=== PATIENT | male | born 1955 | race Caucasian/White ===

== ENCOUNTER 2020-11-15 19:07 | Inpatient (IN) | payer MEDICARE, BC ==
[2020-11-15] MEDS ORDERED: Albuterol/Ipratropium 3.0-0.5 MG/3 ML Neb Soln NEB ONE (20:51)
--- NOTE | 2020-11-15 21:51 | EDM.PDOC ---
ED HPI GENERAL MEDICAL PROBLEM - General Chief Complaint: General Stated Complaint: CHILLS, FEVER, CONGESTION Time Seen by Provider: 11/15/20 20:22 Source of Information: Reports: Patient, Family ( at bedside) History Limitations: Reports: No Limitations - History of Present Illness INITIAL COMMENTS - FREE TEXT/NARRATIVE: Presents emergency room today secondary to feeling bad since Tuesday. He reports positive shortness of breath positive fevers and chills positive sore throat and headache he has had some nausea and vomiting he had 1 emesis today last night he states that he felt lightheaded but he is not having those complaints today. Has taken Tylenol and Aleve for the fever. He reports that his temperature max today was 101. He does have inhalers that he uses Advair twice a day but he does not have any rescue inhaler at home nor does he have any home oxygen PMH--COPD/montiel's lung, HLP, DM2 (no insulin), leg edema, metastatic melanoma stage IV currently in remission Meds--lisinopril, lasix, metformin, MVI, vit D NKDA Denies tob/etoh/drug use No reported history of COVID infection nor has he received the COVID immunization Generalized Pain Score (Numeric/FACES): 5 - Related Data Allergies Allergy/AdvReac Type Severity Reaction Status Date / Time No Known Allergies Allergy Verified 06/14/15 13:40 Home Meds: Home Meds Ascorbic Acid [Vitamin C] 1 tab PO DAILY 05/04/15 [History] Aspirin [Halfprin] 81 mg PO DAILY 05/04/15 [History] Calcium Carbonate/Vitamin D3 [Calcium 600-Vit D3 800 Caplet] 1 tab PO BID 05/04/15 [History] Docusate Sodium [Colace] 100 mg PO DAILY PRN 05/04/15 [History] Fluticasone/Salmeterol [Advair Diskus 500-50] 1 puff INH BID 05/04/15 [History] Furosemide 20 mg PO DAILY 05/04/15 [History] Lisinopril 2.5 mg PO DAILY 05/04/15 [History] Loratadine [Claritin] 1 tab PO DAILY 05/04/15 [History] Mk 34-75 05/04/15 [History] [place]-3 Fatty Acids [Fish Oil] 2 tab PO BID 05/04/15 [History] Sildenafil Citrate [Viagra] 100 mg PO DAILY PRN 05/04/15 [History] Acetaminophen [Tylenol Jr. [place]] 640 mg PO Q6HR tab.dis 05/09/15 [Rx] HYDROmorphone [Dilaudid] 2 - 4 mg PO Q4H PRN #50 tablet 05/09/15 [Rx] atorvaSTATin [Lipitor] 10 mg PO DAILY 06/14/15 [History] metFORMIN [Glucophage] 500 mg PO DAILY 06/14/15 [History] Past Medical History Respiratory History: Reports: COPD Gastrointestinal History: Reports: Other (See Below) Other Gastrointestinal History: diverticulitis Endocrine/Metabolic History: Reports: Diabetes, Type II Immunologic History: Reports: Immunosuppression Other Immunologic History: chemo Oncologic (Cancer) History: Reports: Malignant Melanoma Dermatologic History: Reports: Melanoma - Infectious Disease History Infectious Disease History: Reports: Chicken Pox - Past Surgical History HEENT Surgical History: Reports: Tonsillectomy, Other (See Below) Other HEENT Surgeries/Procedures: left salivary gland removal, deflux injection GI Surgical History: Reports: Cholecystectomy, Hernia Repair/Other, Other (See Below) Other GI Surgeries/Procedures: colon resection Musculoskeletal Surgical History: Reports: Knee Replacement Oncologic Surgical History: Reports: Other (See Below) Other Oncologic Surgeries/Procedures: lymph nodes in neck and throat and from base of skull Social & Family History - Family History Cardiac: Reports: Arrhythmia Respiratory: Reports: Asthma Neurological: Reports: Alzheimers Disease Endocrine/Metabolic: Reports: Diabetes, type II Other Oncologic Family History: Unsure of what kind, father and older sister both had cancer. - Tobacco Use Tobacco Use Status *Q: Never Tobacco User - Caffeine Use Caffeine Use: Reports: Coffee, Soda, Tea - Recreational Drug Use Recreational Drug Use: No ED ROS GENERAL - Review of Systems Review Of Systems: Comprehensive ROS is negative, except as noted in HPI. Constitutional: Reports: Fever, Chills, Fatigue, Decreased Appetite HEENT: Reports: Throat Pain Respiratory: Reports: Shortness of Breath, Cough Cardiovascular: Reports: No Symptoms GI/Abdominal: Reports: Nausea, Vomiting : Reports: No Symptoms Musculoskeletal: Reports: No Symptoms Skin: Reports: No Symptoms Neurological: Reports: Dizziness, Headache ED EXAM, GENERAL - Physical Exam Exam: See Below Exam Limited By: No Limitations General Appearance: Alert, WD/WN, Mild Distress, Other (appears older than stated age) Eye Exam: Bilateral Eye: EOMI, Normal Inspection, PERRL Ears: Normal External Exam, Hearing Grossly Normal Nose: Normal Inspection Throat/Mouth: Normal Inspection, Normal Lips, Normal Oropharynx, Normal Voice, No Airway Compromise Head: Atraumatic, Normocephalic Neck: Normal Inspection, Supple, Non-Tender, Full Range of Motion Respiratory/Chest: Respiratory Distress (mild dyspnia, conversation not interrupted due to SOB), Rhonchi (throughout ), Other (noted upon initial vitals on triage was 86% RA, placed on oxygen by COLLE[employer] OFFICER with increase to 91-95% during my exam on continuous pulse ox) Cardiovascular: Normal Peripheral Pulses, Regular Rate, Rhythm, No Edema, No Murmur Peripheral Pulses: 2+: Radial (L), Radial (R) GI/Abdominal: Normal Bowel Sounds, Soft, Non-Tender, No Distention (Male) Exam: Deferred Rectal (Males) Exam: Deferred Back Exam: Normal Inspection, Full Range of Motion Extremities: Normal Inspection, Normal Range of Motion, No Pedal Edema, Normal Capillary Refill Neurological: Alert, Oriented, Normal Cognition, No Motor/Sensory Deficits Psychiatric: Normal Affect, Normal Mood Skin Exam: Warm, Dry, Intact, Normal Color Course - Vital Signs Text/Narrative:: 2144--labs reviewed; noted for mild hyponatremia, hyperglycemia, thrombocytopenia, mild increase in neutrophil%-80. chest film as well as COVID/influenza/strep pending 2149--received call from lab regarding + COVID test 2214--room to discuss with patient and spouse at bedside today's ER findings to include positive Covid test given respiratory need of oxygen and hypoxia he has a diagnosis of Covid pneumonia. And recommendations for admission. All questions were answered verbalized understanding and agreement with plan of care 2249--call was placed and received return call from Dr. Villarreal, hospitalist service case was discussed and he accepts for admission. request CRP and D- dimer be completed 2349--chest film on preliminary reading is noted for bilateral lower lobe patchy opacities, and his diagnosis of Covid positive as well as hypoxia this would be consistent with Covid pneumonia. D-dimer is just mildly elevated at the borderline at 578 cut off is 500. CRP is markedly elevated at 11.55. Patient is pending admission this time Last Recorded V/S: Last Vital Signs Temp 97 F 11/15/20 19:55 Pulse 94 11/15/20 22:24 Resp 20 11/15/20 22:24 BP 101/60 11/15/20 22:24 Pulse Ox 96 11/15/20 22:24 - Orders/Labs/Meds Orders: Active Orders 24 hr Category Date Time Status Patient Status Manage Transfer [TRANSFER] Routine ADT 11/15/20 23:30 Active RT Aerosol Therapy [RC] ASDIRECTED Care 11/15/20 20:51 Active Chest 1V Frontal [CR] Stat Exams 11/15/20 20:54 Taken CULTURE STREP A CONFIRMATION [RM] Stat Lab 11/15/20 21:05 Results STREP SCRN A RAPID W CULT CONF [RM] Stat Lab 11/15/20 21:05 Results Remdesivir 100 mg Med 11/16/20 23:00 Active Sodium Chloride 0.9% [Normal Saline] 100 ml IV Q24H dexAMETHasone [Decadron] Med 11/15/20 23:30 Active 6 mg IVPUSH Q24H Isolation [COMM] Routine Oth 11/15/20 20:52 Ordered Resuscitation Status Routine Resus Stat 11/15/20 23:33 Ordered Medication Orders Dexamethasone (Dexamethasone 4 Mg/Ml Sdv) 6 mg IVPUSH Q24H ZOFIA Remdesivir 100 mg/ Sodium (Chloride) 100 mls @ 100 mls/hr IV Q24H ZOFIA Stop: 11/19/20 23:59 Labs: Laboratory Tests 11/15/20 11/15/20 11/15/20 Range/Units 20:40 20:40 21:00 WBC 2.2 L (4.5-11.0) K/uL RBC 4.77 (4.30-5.90) M/uL Hgb 13.5 D (12.0-15.0) g/dL Hct 39.9 L (40.0-54.0) % MCV 84 (80-98) fL MCH 28 (27-31) pg MCHC 34 (32-36) % Plt Count 105 L (150-400) K/uL Neut % (Auto) 80.9 H (36-66) % Lymph % (Auto) 10.7 L (24-44) % [place] % (Auto) 8.0 H (2-6) % Eos % (Auto) 0.4 L (2-4) % Baso % (Auto) 0.0 (0-1) % D-Dimer, Quantitative 578.22 H (0.0-500.0) ng/mL Sodium 131 L (140-148) mmol/L Potassium 4.6 (3.6-5.2) mmol/L Chloride 98 L (100-108) mmol/L Carbon Dioxide 27 (21-32) mmol/L Anion Gap 10.6 (5.0-14.0) mmol/L BUN 33 H D (7-18) mg/dL Creatinine 1.2 (0.8-1.3) mg/dL Est Cr Clr Drug Dosing 54.64 mL/min Estimated GFR (MDRD) > 60 (>60) Glucose 240 H (74-106) mg/dL Calcium 8.7 (8.5-10.1) mg/dL Total Bilirubin 0.5 (0.2-1.0) mg/dL AST 27 (15-37) U/L ALT 50 (12-78) U/L Alkaline Phosphatase 50 (46-116) U/L C-Reactive Protein (0.0-0.3) mg/dL Total Protein 6.9 (6.4-8.2) g/dL Albumin 3.7 (3.4-5.0) g/dL Globulin 3.2 (2.3-3.5) g/dL Albumin/Globulin Ratio 1.2 (1.2-2.2) SARS-CoV-2 RNA ([place]) (NEGATIVE) 11/15/20 11/15/20 Range/Units 21:00 21:05 WBC (4.5-11.0) K/uL RBC (4.30-5.90) M/uL Hgb (12.0-15.0) g/dL Hct (40.0-54.0) % MCV (80-98) fL MCH (27-31) pg MCHC (32-36) % Plt Count (150-400) K/uL Neut % (Auto) (36-66) % Lymph % (Auto) (24-44) % [place] % (Auto) (2-6) % Eos % (Auto) (2-4) % Baso % (Auto) (0-1) % D-Dimer, Quantitative (0.0-500.0) ng/mL Sodium (140-148) mmol/L Potassium (3.6-5.2) mmol/L Chloride (100-108) mmol/L Carbon Dioxide (21-32) mmol/L Anion Gap (5.0-14.0) mmol/L BUN (7-18) mg/dL Creatinine (0.8-1.3) mg/dL Est Cr Clr Drug Dosing mL/min Estimated GFR (MDRD) (>60) Glucose (74-106) mg/dL Calcium (8.5-10.1) mg/dL Total Bilirubin (0.2-1.0) mg/dL AST (15-37) U/L ALT (12-78) U/L Alkaline Phosphatase (46-116) U/L C-Reactive Protein 11.55 H (0.0-0.3) mg/dL Total Protein (6.4-8.2) g/dL Albumin (3.4-5.0) g/dL Globulin (2.3-3.5) g/dL Albumin/Globulin Ratio (1.2-2.2) SARS-CoV-2 RNA ([place]) Positive H (NEGATIVE) Meds: Medications Generic Name Dose Route Start Last Admin Trade Name Freq PRN Reason Stop Dose Admin Dexamethasone 6 mg 11/15/20 23:30 Dexamethasone 4 Mg/Ml Sdv IVPUSH Q24H ZOFIA Remdesivir 100 mg/ Sodium 100 mls @ 100 mls/hr 11/16/20 23:00 Chloride IV 11/19/20 23:59 Q24H ZOFIA Discontinued Medications Generic Name Dose Route Start Last Admin Trade Name Freq PRN Reason Stop Dose Admin Albuterol/Ipratropium 3 ml 11/15/20 20:51 11/15/20 21:08 Albuterol/Ipratropium 3.0-0.5 Mg/3 Ml Neb Soln NEB 11/15/20 20:52 3 ml ONETIME ONE Administration Remdesivir 200 mg/ Sodium 250 mls @ 250 mls/hr 11/15/20 23:28 Chloride IV 11/15/20 23:29 ONETIME ONE - Radiology Interpretation Free Text/Narrative:: 3841--chest film on preliminary reading is noted for bilateral lower lobe patchy opacities, and his diagnosis of Covid positive as well as hypoxia this would be consistent with Covid pneumonia. Departure - Departure Time of Disposition: 22:52 Disposition: Admitted As Inpatient 65 Clinical Impression: Pneumonia due to COVID-19 virus, Leukopenia, Thrombocytopenia, Hyponatremia, Uncontrolled diabetes mellitus with hyperglycemia, without long-term current use of insulin, Hypoxia - Discharge Information Referrals: Slim Gilliam MD [Primary Care Provider] - Forms: ED Department Discharge Sepsis Event Note (ED) - Evaluation Sepsis Screening Result: No Definite Risk - Focused Exam Vital Signs: Vital Signs Temp Pulse Resp BP Pulse Ox 11/15/20 22:24 94 20 101/60 96 11/15/20 21:54 93 L 11/15/20 19:55 97 F 93 20 109/53 L 86 L - My Orders Last 24 Hours: My Active Orders 11/15/20 20:51 RT Aerosol Therapy [RC] ASDIRECTED 11/15/20 20:52 Isolation [COMM] Routine 11/15/20 20:54 Chest 1V Frontal [CR] Stat 11/15/20 21:05 CULTURE STREP A CONFIRMATION [RM] Stat STREP SCRN A RAPID W CULT CONF [RM] Stat - Assessment/Plan Last 24 Hours: My Active Orders 11/15/20 20:51 RT Aerosol Therapy [RC] ASDIRECTED 11/15/20 20:52 Isolation [COMM] Routine 11/15/20 20:54 Chest 1V Frontal [CR] Stat 11/15/20 21:05 CULTURE STREP A CONFIRMATION [RM] Stat STREP SCRN A RAPID W CULT CONF [RM] Stat
[2020-11-15] MEDS ORDERED: REMDESIVIR 200 MG in Sodium Chloride 0.9% 250 ML IV ONE (23:28)
--- NOTE | 2020-11-15 23:41 | PCM.HP.2 ---
H&P History of Present Illness - General Date of Service: 11/15/20 Admit Problem/Dx: Admission Diagnosis/Problem Admission Diagnosis/Problem Hypoxia Source of Information: Patient, Family, Provider History Limitations: Reports: No Limitations - History of Present Illness Initial Comments - Free Text/Narative: Mr. Mcgrath is a 65-year-old gentleman who was admitted through the emergency department with weakness, dyspnea, and hypoxia, secondary to COVID-19 infection with bilateral pneumonia. He has not felt well over the past 4 days and during that period of time has developed progressive symptoms. He presented to the emergency department this evening and was found to be Covid positive. Chest x- ray does show evidence of bilateral pulmonary infiltrate consistent with COVID- 19 infection. White blood cell count is low and he is afebrile. On initial presentation to the emergency department was noted to have an oxygen saturation of 86% on room air. He has a BMI of 38, underlying COPD and type 2 diabetes mellitus. Generalized Pain Score (Numeric/FACES): 5 - Related Data Allergies/Adverse Reactions: Allergies Allergy/AdvReac Type Severity Reaction Status Date / Time No Known Allergies Allergy Verified 06/14/15 13:40 Home Medications: Home Meds Ascorbic Acid [Vitamin C] 1 tab PO DAILY 05/04/15 [History] Aspirin [Halfprin] 81 mg PO DAILY 05/04/15 [History] Calcium Carbonate/Vitamin D3 [Calcium 600-Vit D3 800 Caplet] 1 tab PO BID 05/04/15 [History] Docusate Sodium [Colace] 100 mg PO DAILY PRN 05/04/15 [History] Fluticasone/Salmeterol [Advair Diskus 500-50] 1 puff INH BID 05/04/15 [History] Furosemide 20 mg PO DAILY 05/04/15 [History] Lisinopril 2.5 mg PO DAILY 05/04/15 [History] Loratadine [Claritin] 1 tab PO DAILY 05/04/15 [History] Mk 34-75 05/04/15 [History] [place]-3 Fatty Acids [Fish Oil] 2 tab PO BID 05/04/15 [History] Sildenafil Citrate [Viagra] 100 mg PO DAILY PRN 05/04/15 [History] Acetaminophen [Tylenol JrYuri Russellawaydilshad] 640 mg PO Q6HR tab.dis 05/09/15 [Rx] HYDROmorphone [Dilaudid] 2 - 4 mg PO Q4H PRN #50 tablet 05/09/15 [Rx] atorvaSTATin [Lipitor] 10 mg PO DAILY 06/14/15 [History] metFORMIN [Glucophage] 500 mg PO DAILY 06/14/15 [History] Past Medical History Respiratory History: Reports: COPD Gastrointestinal History: Reports: Other (See Below) Other Gastrointestinal History: diverticulitis Endocrine/Metabolic History: Reports: Diabetes, Type II Immunologic History: Reports: Immunosuppression Other Immunologic History: chemo Oncologic (Cancer) History: Reports: Malignant Melanoma Dermatologic History: Reports: Melanoma - Infectious Disease History Infectious Disease History: Reports: Chicken Pox - Past Surgical History HEENT Surgical History: Reports: Tonsillectomy, Other (See Below) Other HEENT Surgeries/Procedures: left salivary gland removal, deflux injection GI Surgical History: Reports: Cholecystectomy, Hernia Repair/Other, Other (See Below) Other GI Surgeries/Procedures: colon resection Musculoskeletal Surgical History: Reports: Knee Replacement Oncologic Surgical History: Reports: Other (See Below) Other Oncologic Surgeries/Procedures: lymph nodes in neck and throat and from base of skull Social & Family History - Family History Cardiac: Reports: Arrhythmia Respiratory: Reports: Asthma Neurological: Reports: Alzheimers Disease Endocrine/Metabolic: Reports: Diabetes, type II Other Oncologic Family History: Unsure of what kind, father and older sister both had cancer. - Tobacco Use Tobacco Use Status *Q: Never Tobacco User - Caffeine Use Caffeine Use: Reports: Coffee, Soda, Tea - Recreational Drug Use Recreational Drug Use: No H&P Review of Systems - Review of Systems: Review Of Systems: See Below General: Reports: Malaise, Weakness, Fatigue, Decreased Appetite. Denies: F ever, Chills HEENT: Reports: Headaches. Denies: Ear Pain, Eye Pain, Hearing Changes, Rhinitis, Sinus Congestion Pulmonary: Reports: Shortness of Breath, Cough. Denies: Wheezing, Pleuritic Chest Pain, Sputum, Hemoptysis Cardiovascular: Reports: Dyspnea on Exertion, Edema. Denies: Chest Pain, Palpitations, Orthopnea, PND, Lightheadedness Gastrointestinal: Reports: No Symptoms Genitourinary: Reports: No Symptoms Musculoskeletal: Reports: Back Pain, Muscle Pain Skin: Reports: No Symptoms Psychiatric: Reports: No Symptoms Neurological: Reports: No Symptoms Hematologic/Lymphatic: Reports: No Symptoms Immunologic: Reports: No Symptoms Exam - Exam Exam: See Below - Vital Signs Vital Signs: Last Vital Signs Temp 97 F 11/15/20 19:55 Pulse 94 11/15/20 22:24 Resp 20 11/15/20 22:24 BP 101/60 11/15/20 22:24 Pulse Ox 96 11/15/20 22:24 Weight: 240 lb - Exam Quality Assessment: Supplemental Oxygen, DVT Prophylaxis General: Alert, Oriented, Cooperative, Moderate Distress HEENT: Conjunctiva Clear, Hearing Intact, Mucosa Moist & [place], Normal Nasal Septum, Posterior Pharynx Clear, Pupils Equal Neck: Supple, Trachea Midline, +2 Carotid Pulse wo Bruit Lungs: Decreased Breath Sounds, Rales, Rhonchi. No: Crackles, Wheezing Cardiovascular: Regular Rate, Regular Rhythm, Normal S1, Normal S2. No: Systo lic Murmur, Diastolic Murmur GI/Abdominal Exam: Soft, Non-Tender, No Organomegaly, No Distention Back Exam: Normal Inspection, Vertebral Tenderness Extremities: Non-Tender, Pedal Edema Skin: Warm, Dry, Intact Neurological: Cranial Nerves Intact, Strength Equal Bilateral, Normal Speech, Normal Tone, Sensation Intact. No: Focal Deficit Neuro Extensive - Mental Status: Alert, Oriented x3, Normal Mood/Affect, Normal Cognition, Memory Intact - Patient Data Lab Results Last 24 hrs: Laboratory Results - last 24 hr 11/15/20 11/15/20 11/15/20 Range/Units 20:40 20:40 21:00 WBC 2.2 L (4.5-11.0) K/uL RBC 4.77 (4.30-5.90) M/uL Hgb 13.5 D (12.0-15.0) g/dL Hct 39.9 L (40.0-54.0) % MCV 84 (80-98) fL MCH 28 (27-31) pg MCHC 34 (32-36) % Plt Count 105 L (150-400) K/uL Neut % (Auto) 80.9 H (36-66) % Lymph % (Auto) 10.7 L (24-44) % [place] % (Auto) 8.0 H (2-6) % Eos % (Auto) 0.4 L (2-4) % Baso % (Auto) 0.0 (0-1) % D-Dimer, Quantitative 578.22 H (0.0-500.0) ng/mL Sodium 131 L (140-148) mmol/L Potassium 4.6 (3.6-5.2) mmol/L Chloride 98 L (100-108) mmol/L Carbon Dioxide 27 (21-32) mmol/L Anion Gap 10.6 (5.0-14.0) mmol/L BUN 33 H D (7-18) mg/dL Creatinine 1.2 (0.8-1.3) mg/dL Est Cr Clr Drug Dosing 54.64 mL/min Estimated GFR (MDRD) > 60 (>60) Glucose 240 H (74-106) mg/dL Calcium 8.7 (8.5-10.1) mg/dL Total Bilirubin 0.5 (0.2-1.0) mg/dL AST 27 (15-37) U/L ALT 50 (12-78) U/L Alkaline Phosphatase 50 (46-116) U/L C-Reactive Protein (0.0-0.3) mg/dL Total Protein 6.9 (6.4-8.2) g/dL Albumin 3.7 (3.4-5.0) g/dL Globulin 3.2 (2.3-3.5) g/dL Albumin/Globulin Ratio 1.2 (1.2-2.2) SARS-CoV-2 RNA ([place]) (NEGATIVE) 11/15/20 11/15/20 Range/Units 21:00 21:05 WBC (4.5-11.0) K/uL RBC (4.30-5.90) M/uL Hgb (12.0-15.0) g/dL Hct (40.0-54.0) % MCV (80-98) fL MCH (27-31) pg MCHC (32-36) % Plt Count (150-400) K/uL Neut % (Auto) (36-66) % Lymph % (Auto) (24-44) % [place] % (Auto) (2-6) % Eos % (Auto) (2-4) % Baso % (Auto) (0-1) % D-Dimer, Quantitative (0.0-500.0) ng/mL Sodium (140-148) mmol/L Potassium (3.6-5.2) mmol/L Chloride (100-108) mmol/L Carbon Dioxide (21-32) mmol/L Anion Gap (5.0-14.0) mmol/L BUN (7-18) mg/dL Creatinine (0.8-1.3) mg/dL Est Cr Clr Drug Dosing mL/min Estimated GFR (MDRD) (>60) Glucose (74-106) mg/dL Calcium (8.5-10.1) mg/dL Total Bilirubin (0.2-1.0) mg/dL AST (15-37) U/L ALT (12-78) U/L Alkaline Phosphatase (46-116) U/L C-Reactive Protein 11.55 H (0.0-0.3) mg/dL Total Protein (6.4-8.2) g/dL Albumin (3.4-5.0) g/dL Globulin (2.3-3.5) g/dL Albumin/Globulin Ratio (1.2-2.2) SARS-CoV-2 RNA ([place]) Positive H (NEGATIVE) Result Diagrams: 11/15/20 20:40 11/15/20 20:40 Blu Results Last 24 hrs: Microbiology 11/15/20 21:05 Group A Streptococcus Rapid Screen - Final Throat NEGATIVE STREP A SCREEN REFERENCE RANGE: NEGATIVE 11/15/20 21:05 Influenza Type A Antigen Screen - Final Nasopharyngeal Swab NEGATIVE INFLUENZA A VIRUS AG REFERENCE RANGE: NEGATIVE Influenza Type B Antigen Screen - Final NEGATIVE INFLUENZA B VIRUS AG REFERENCE RANGE: NEGATIVE Sepsis Event Note - Evaluation Sepsis Screening Result: No Definite Risk - Focused Exam Vital Signs: Vital Signs Temp Pulse Resp BP Pulse Ox 11/15/20 22:24 94 20 101/60 96 11/15/20 21:54 93 L 11/15/20 19:55 97 F 93 20 109/53 L 86 L *Q Meaningful Use (ADM) - VTE Risk Assess *Q Each Risk Factor Represents 1 Point: Swollen Legs, Current, Obesity ( BMI > 25 kg/m2), Serious lung disease including pneumonia, Abnormal Pulmonary Function (COPD) Total Score 1 Point Risk Factors: 4 Each Risk Factor Represents 2 Points: Age 60 - 74 Years Total Score 2 Point Risk Factors: 2 Each Risk Factor Represents 3 Points: None Total Score 3 Point Risk Factors: 0 Each Risk Factor Represents 5 Points: None Total Score 5 Point Risk Factors: 0 Venous Thromboembolism Risk Factor Score *Q: 6 Problem List Initiated/Reviewed/Updated: Yes Orders Last 24hrs: Active Orders 24 hr Category Date Time Status Patient Status Manage Transfer [TRANSFER] Routine ADT 11/15/20 23:30 Active RT Aerosol Therapy [RC] ASDIRECTED Care 11/15/20 20:51 Active Chest 1V Frontal [CR] Stat Exams 11/15/20 20:54 Taken CULTURE STREP A CONFIRMATION [RM] Stat Lab 11/15/20 21:05 Results STREP SCRN A RAPID W CULT CONF [RM] Stat Lab 11/15/20 21:05 Results Remdesivir 100 mg Med 11/16/20 23:00 Active Sodium Chloride 0.9% [Normal Saline] 100 ml IV Q24H dexAMETHasone [Decadron] Med 11/15/20 23:30 Active 6 mg IVPUSH Q24H Isolation [COMM] Routine Oth 11/15/20 20:52 Ordered Resuscitation Status Routine Resus Stat 11/15/20 23:33 Ordered Medication Orders Dexamethasone (Dexamethasone 4 Mg/Ml Sdv) 6 mg IVPUSH Q24H ZOFIA Remdesivir 100 mg/ Sodium (Chloride) 100 mls @ 100 mls/hr IV Q24H ZOFIA Stop: 11/19/20 23:59 Assessment/Plan Comment:: ASSESSMENT AND PLAN COVID-19 INFECTION WITH BILATERAL PNEUMONIA-onset of symptoms approximately 4 days ago, evidence of bilateral pneumonia noted on chest x-ray. Complicated by acute hypoxic respiratory failure. -Limit IV fluids -Encourage prone ventilation -Remdesivir 200 mg IV today then 100 mg IV daily for an additional 4 days, today is day 1 of 5 -Decadron 6 mg IV daily, today is day 1 -Continuous pulse oximetry -Lovenox 40 mg subcu every 12 hours ACUTE HYPOXIC RESPIRATORY FAILURE-secondary to COVID-19 infection with bilateral pneumonia and underlying COPD -Supplemental oxygen as needed -Albuterol inhaler every 4 hours as needed TYPE 2 DIABETES MELLITUS -Hold Metformin, until appetite improves -4 times daily glucometers -Low-dose sliding scale Humalog MAINTENANCE ISSUES -DVT prophylaxis; Lovenox as above -GI prophylaxis; not indicated -Saldivar catheter; not indicated -Nutrition; consistent carbohydrate diet -Nicotine dependence; not required CODE STATUS-FULL CODE ADMISSION STATUS-patient will be admitted to inpatient status, expect at least a 2 night hospital stay for evaluation and management of problems as outlined above. At the time of this admission I do not reasonably expected evaluation a nd management of this problem will require more than a 96 hour hospital stay. DISPOSITION-anticipate discharge to home after the hospital stay. PRIMARY CARE PROVIDER-Dr. Gilliam - Mortality Measure Prognosis:: Poor
[2020-11-15] MEDS: Dexamethasone 4 MG/ML SDV IVPUSH SCH (23:56)
[2020-11-16] MEDS ORDERED: Glucose Gel 15 GM in 37.5 GM Tube PO PRN (00:53)
[2020-11-16] MEDS ORDERED: Enoxaparin 40 MG/0.4 ML Syringe SUBCUT SCH (00:53)
[2020-11-16] MEDS ORDERED: Sodium Chloride 0.9% 10 ML Syringe FLUSH PRN (00:53)
[2020-11-16] MEDS ORDERED: 50% Dextrose in Water 50 ML Syringe IV PRN (00:53)
[2020-11-16] MEDS ORDERED: Polyethylene Glycol 3350 Powder 17 GM Packet PO PRN (00:53)
[2020-11-16] MEDS ORDERED: Ondansetron 4 MG/2 ML SDV IV PRN (00:53)
[2020-11-16] MEDS: Acetaminophen 325 MG Tab PO PRN ×2 (01:07→15:53)
[2020-11-16] MEDS: Formoterol/Mometasone 200-5 MCG 8.8 GM Inhaler IH SCH ×2 (08:20→20:53)
[2020-11-16] MEDS: Insulin Lispro 100 Unit/ML 3 ML KwikPen SUBCUT SCH ×4 (08:25→20:56)
[2020-11-16] MEDS ORDERED: Lisinopril 2.5 MG Tab PO SCH (09:00)
[2020-11-16] MEDS ORDERED: Furosemide 20 MG Tab PO SCH (09:00)
[2020-11-16] MEDS ORDERED: Loratadine 10 MG Tab PO SCH (09:00)
[2020-11-16] MEDS ORDERED: Aspirin 81 MG Tab.EC PO SCH (09:00)
[2020-11-16] MEDS ORDERED: atorvaSTATin 10 MG Tab PO SCH (09:00)
--- NOTE | 2020-11-16 10:53 | PCM.PN ---
- General Info Date of Service: 11/16/20 Subjective Update: Mr. Mcgrath has remained fairly stable since admission. Continues to require supplemental oxygen to maintain adequate saturations, currently at 3 L/min via nasal cannula. Continues to have a cough which is nonproductive. He does report symptoms of shortness of breath with fairly minimal activity. Functional Status: Reports: Tolerating Diet, Ambulating, Urinating - Review of Systems General: Reports: Weakness, Fatigue. Denies: Fever, Chills Pulmonary: Reports: Shortness of Breath, Cough. Denies: Pleuritic Chest Pain, Sputum, Hemoptysis, Wheezing Cardiovascular: Reports: Dyspnea on Exertion. Denies: Chest Pain, Palpitations, Orthopnea, PND, Edema, Lightheadedness Gastrointestinal: Reports: No Symptoms Genitourinary: Reports: No Symptoms - Patient Data Vitals - Most Recent: Last Vital Signs Temp 98.0 F 11/16/20 10:47 Pulse 89 11/16/20 10:47 Resp 18 11/16/20 10:47 BP 136/63 11/16/20 10:47 Pulse Ox 90 L 11/16/20 10:47 Weight - Most Recent: 248 lb 9.6 oz I&O - Last 24 Hours: Intake & Output 11/15/20 11/16/20 11/16/20 22:59 06:59 14:59 Intake Total 360 Balance 360 Lab Results Last 24 Hours: Laboratory Results - last 24 hr 11/15/20 11/15/20 11/15/20 Range/Units 20:40 20:40 21:00 WBC 2.2 L (4.5-11.0) K/uL RBC 4.77 (4.30-5.90) M/uL Hgb 13.5 D (12.0-15.0) g/dL Hct 39.9 L (40.0-54.0) % MCV 84 (80-98) fL MCH 28 (27-31) pg MCHC 34 (32-36) % Plt Count 105 L (150-400) K/uL Neut % (Auto) 80.9 H (36-66) % Lymph % (Auto) 10.7 L (24-44) % [place] % (Auto) 8.0 H (2-6) % Eos % (Auto) 0.4 L (2-4) % Baso % (Auto) 0.0 (0-1) % Add Manual Diff Neutrophils % (Manual) (36-66) % Band Neutrophils % (5-11) % Lymphocytes % (Manual) (24-44) % Monocytes % (Manual) (2-6) % Metamyelocytes % % D-Dimer, Quantitative 578.22 H (0.0-500.0) ng/mL Sodium 131 L (140-148) mmol/L Potassium 4.6 (3.6-5.2) mmol/L Chloride 98 L (100-108) mmol/L Carbon Dioxide 27 (21-32) mmol/L Anion Gap 10.6 (5.0-14.0) mmol/L BUN 33 H D (7-18) mg/dL Creatinine 1.2 (0.8-1.3) mg/dL Est Cr Clr Drug Dosing 54.64 mL/min Estimated GFR (MDRD) > 60 (>60) Glucose 240 H (74-106) mg/dL POC Glucose (74-106) mg/dL Calcium 8.7 (8.5-10.1) mg/dL Total Bilirubin 0.5 (0.2-1.0) mg/dL AST 27 (15-37) U/L ALT 50 (12-78) U/L Alkaline Phosphatase 50 (46-116) U/L C-Reactive Protein (0.0-0.3) mg/dL Total Protein 6.9 (6.4-8.2) g/dL Albumin 3.7 (3.4-5.0) g/dL Globulin 3.2 (2.3-3.5) g/dL Albumin/Globulin Ratio 1.2 (1.2-2.2) SARS-CoV-2 RNA (KAUSHIK) (NEGATIVE) 11/15/20 11/15/20 11/16/20 Range/Units 21:00 21:05 06:00 WBC 4.7 (4.5-11.0) K/uL RBC 4.70 (4.30-5.90) M/uL Hgb 13.5 (12.0-15.0) g/dL Hct 39.3 L (40.0-54.0) % MCV 84 (80-98) fL MCH 29 (27-31) pg MCHC 34 (32-36) % Plt Count 102 L (150-400) K/uL Neut % (Auto) (36-66) % Lymph % (Auto) (24-44) % [place] % (Auto) (2-6) % Eos % (Auto) (2-4) % Baso % (Auto) (0-1) % Add Manual Diff Yes Neutrophils % (Manual) 56 (36-66) % Band Neutrophils % 25 H (5-11) % Lymphocytes % (Manual) 12 L (24-44) % Monocytes % (Manual) 4 (2-6) % Metamyelocytes % 3 % D-Dimer, Quantitative (0.0-500.0) ng/mL Sodium (140-148) mmol/L Potassium (3.6-5.2) mmol/L Chloride (100-108) mmol/L Carbon Dioxide (21-32) mmol/L Anion Gap (5.0-14.0) mmol/L BUN (7-18) mg/dL Creatinine (0.8-1.3) mg/dL Est Cr Clr Drug Dosing mL/min Estimated GFR (MDRD) (>60) Glucose (74-106) mg/dL POC Glucose (74-106) mg/dL Calcium (8.5-10.1) mg/dL Total Bilirubin (0.2-1.0) mg/dL AST (15-37) U/L ALT (12-78) U/L Alkaline Phosphatase (46-116) U/L C-Reactive Protein 11.55 H (0.0-0.3) mg/dL Total Protein (6.4-8.2) g/dL Albumin (3.4-5.0) g/dL Globulin (2.3-3.5) g/dL Albumin/Globulin Ratio (1.2-2.2) SARS-CoV-2 RNA (KAUSHIK) Positive H (NEGATIVE) 11/16/20 11/16/20 11/16/20 Range/Units 06:00 06:00 07:36 WBC (4.5-11.0) K/uL RBC (4.30-5.90) M/uL Hgb (12.0-15.0) g/dL Hct (40.0-54.0) % MCV (80-98) fL MCH (27-31) pg MCHC (32-36) % Plt Count (150-400) K/uL Neut % (Auto) (36-66) % Lymph % (Auto) (24-44) % [place] % (Auto) (2-6) % Eos % (Auto) (2-4) % Baso % (Auto) (0-1) % Add Manual Diff Neutrophils % (Manual) (36-66) % Band Neutrophils % (5-11) % Lymphocytes % (Manual) (24-44) % Monocytes % (Manual) (2-6) % Metamyelocytes % % D-Dimer, Quantitative 598.83 H (0.0-500.0) ng/mL Sodium 132 L (140-148) mmol/L Potassium 4.4 (3.6-5.2) mmol/L Chloride 99 L (100-108) mmol/L Carbon Dioxide 23 (21-32) mmol/L Anion Gap 14.4 H (5.0-14.0) mmol/L BUN 28 H (7-18) mg/dL Creatinine 1.2 (0.8-1.3) mg/dL Est Cr Clr Drug Dosing 54.64 mL/min Estimated GFR (MDRD) > 60 (>60) Glucose 352 H (74-106) mg/dL POC Glucose 285 H (74-106) mg/dL Calcium 8.4 L (8.5-10.1) mg/dL Total Bilirubin 0.5 (0.2-1.0) mg/dL AST 31 (15-37) U/L ALT 51 (12-78) U/L Alkaline Phosphatase 48 (46-116) U/L C-Reactive Protein 20.26 H (0.0-0.3) mg/dL Total Protein 6.4 (6.4-8.2) g/dL Albumin 3.6 (3.4-5.0) g/dL Globulin 2.8 (2.3-3.5) g/dL Albumin/Globulin Ratio 1.3 (1.2-2.2) SARS-CoV-2 RNA (KAUSHIK) (NEGATIVE) Blu Results Last 24 Hours: Microbiology 11/15/20 21:05 Group A Streptococcus Rapid Screen - Final Throat NEGATIVE STREP A SCREEN REFERENCE RANGE: NEGATIVE 11/15/20 21:05 Influenza Type A Antigen Screen - Final Nasopharyngeal Swab NEGATIVE INFLUENZA A VIRUS AG REFERENCE RANGE: NEGATIVE Influenza Type B Antigen Screen - Final NEGATIVE INFLUENZA B VIRUS AG REFERENCE RANGE: NEGATIVE Med Orders - Current: Current Medications Acetaminophen (Acetaminophen 325 Mg Tab) 650 mg PO Q4H PRN PRN Reason: Pain (Mild 1-3)/fever Last Admin: 11/16/20 01:07 Dose: 650 mg Documented by: Albuterol (Albuterol 8 Gm Inhaler) 0 gm INH Q4H PRN PRN Reason: Dyspnea Aspirin (Aspirin 81 Mg Tab.Ec) 81 mg PO DAILY [facility] [place] Last Admin: 11/16/20 08:23 Dose: 81 mg Documented by: Atorvastatin Calcium (Atorvastatin 10 Mg Tab) 10 mg PO DAILY [facility] [place] Last Admin: 11/16/20 08:23 Dose: 10 mg Documented by: Dexamethasone (Dexamethasone 4 Mg/Ml Sdv) 6 mg IVPUSH Q24H [facility] [place] Last Admin: 11/15/20 23:56 Dose: 6 mg Documented by: Dextrose (Glucose Gel 15 Gm In 37.5 Gm Tube) 15 gm PO ONETIME PRN PRN Reason: Hypoglycemia Dextrose/Water (50% Dextrose In Water 50 Ml Syringe) 50 ml IV ONETIME PRN PRN Reason: Hypoglycemia Enoxaparin Sodium (Enoxaparin 40 Mg/0.4 Ml Syringe) 40 mg SUBCUT Q12H [facility] [place] Furosemide (Furosemide 20 Mg Tab) 20 mg PO DAILY [facility] [place] Last Admin: 11/16/20 08:24 Dose: 20 mg Documented by: Remdesivir 100 mg/ Sodium (Chloride) 100 mls @ 100 mls/hr IV Q24H [facility] [place] Stop: 11/19/20 23:59 Insulin Human Lispro (Insulin Lispro 100 Unit/Ml 3 Ml Kwikpen) 0 unit SUBCUT QIDACANDBED [facility] [place]; Protocol Last Admin: 11/16/20 08:25 Dose: 3 unit Documented by: Lisinopril (Lisinopril 2.5 Mg Tab) 2.5 mg PO DAILY [facility] [place] Last Admin: 11/16/20 08:25 Dose: 2.5 mg Documented by: Loratadine (Loratadine 10 Mg Tab) 10 mg PO DAILY [facility] [place] Last Admin: 11/16/20 08:23 Dose: 10 mg Documented by: Mometasone Furoate/Formoterol Fumar (Formoterol/Mometasone 200-5 Mcg 8.8 Gm Inhaler) 0 puff IH BIDRT [facility] [place] Last Admin: 11/16/20 08:20 Dose: 2 inhalation Documented by: Ondansetron HCl (Ondansetron 4 Mg/2 Ml Sdv) 4 mg IV Q4H PRN PRN Reason: Nausea/Vomiting Polyethylene Glycol (Polyethylene Glycol 3350 Powder 17 Gm Packet) 17 gm PO DAILY PRN PRN Reason: Constipation Sodium Chloride (Sodium Chloride 0.9% 10 Ml Syringe) 10 ml FLUSH ASDIRECTED PRN PRN Reason: Keep Vein Open Discontinued Medications Albuterol/Ipratropium (Albuterol/Ipratropium 3.0-0.5 Mg/3 Ml Neb Soln) 3 ml NEB ONETIME ONE Stop: 11/15/20 20:52 Last Admin: 11/15/20 21:08 Dose: 3 ml Documented by: Enoxaparin Sodium (Enoxaparin 40 Mg/0.4 Ml Syringe) 40 mg SUBCUT Q12H [facility] Last Admin: 11/16/20 01:07 Dose: 40 mg Documented by: Remdesivir 200 mg/ Sodium (Chloride) 250 mls @ 250 mls/hr IV ONETIME ONE Stop: 11/15/20 23:29 Last Admin: 11/15/20 23:58 Dose: 250 mls/hr Documented by: - Exam Quality Assessment: Supplemental Oxygen, DVT Prophylaxis General: Alert, Oriented, Cooperative, Mild Distress Lungs: Decreased Breath Sounds, Rales, Rhonchi. No: Crackles, Wheezing Cardiovascular: Regular Rate, Regular Rhythm, No Murmurs GI/Abdominal Exam: Soft, Non-Tender, No Organomegaly, No Distention Extremities: Non-Tender, No Pedal Edema - Patient Data Lab Results Last 24 hrs: Laboratory Results - last 24 hr 11/15/20 11/15/20 11/15/20 Range/Units 20:40 20:40 21:00 WBC 2.2 L (4.5-11.0) K/uL RBC 4.77 (4.30-5.90) M/uL Hgb 13.5 D (12.0-15.0) g/dL Hct 39.9 L (40.0-54.0) % MCV 84 (80-98) fL MCH 28 (27-31) pg MCHC 34 (32-36) % Plt Count 105 L (150-400) K/uL Neut % (Auto) 80.9 H (36-66) % Lymph % (Auto) 10.7 L (24-44) % [place] % (Auto) 8.0 H (2-6) % Eos % (Auto) 0.4 L (2-4) % Baso % (Auto) 0.0 (0-1) % Add Manual Diff Neutrophils % (Manual) (36-66) % Band Neutrophils % (5-11) % Lymphocytes % (Manual) (24-44) % Monocytes % (Manual) (2-6) % Metamyelocytes % % D-Dimer, Quantitative 578.22 H (0.0-500.0) ng/mL Sodium 131 L (140-148) mmol/L Potassium 4.6 (3.6-5.2) mmol/L Chloride 98 L (100-108) mmol/L Carbon Dioxide 27 (21-32) mmol/L Anion Gap 10.6 (5.0-14.0) mmol/L BUN 33 H D (7-18) mg/dL Creatinine 1.2 (0.8-1.3) mg/dL Est Cr Clr Drug Dosing 54.64 mL/min Estimated GFR (MDRD) > 60 (>60) Glucose 240 H (74-106) mg/dL POC Glucose (74-106) mg/dL Calcium 8.7 (8.5-10.1) mg/dL Total Bilirubin 0.5 (0.2-1.0) mg/dL AST 27 (15-37) U/L ALT 50 (12-78) U/L Alkaline Phosphatase 50 (46-116) U/L C-Reactive Protein (0.0-0.3) mg/dL Total Protein 6.9 (6.4-8.2) g/dL Albumin 3.7 (3.4-5.0) g/dL Globulin 3.2 (2.3-3.5) g/dL Albumin/Globulin Ratio 1.2 (1.2-2.2) SARS-CoV-2 RNA ([facility]) (NEGATIVE) 11/15/20 11/15/20 11/16/20 Range/Units 21:00 21:05 06:00 WBC 4.7 (4.5-11.0) K/uL RBC 4.70 (4.30-5.90) M/uL Hgb 13.5 (12.0-15.0) g/dL Hct 39.3 L (40.0-54.0) % MCV 84 (80-98) fL MCH 29 (27-31) pg MCHC 34 (32-36) % Plt Count 102 L (150-400) K/uL Neut % (Auto) (36-66) % Lymph % (Auto) (24-44) % [place] % (Auto) (2-6) % Eos % (Auto) (2-4) % Baso % (Auto) (0-1) % Add Manual Diff Yes Neutrophils % (Manual) 56 (36-66) % Band Neutrophils % 25 H (5-11) % Lymphocytes % (Manual) 12 L (24-44) % Monocytes % (Manual) 4 (2-6) % Metamyelocytes % 3 % D-Dimer, Quantitative (0.0-500.0) ng/mL Sodium (140-148) mmol/L Potassium (3.6-5.2) mmol/L Chloride (100-108) mmol/L Carbon Dioxide (21-32) mmol/L Anion Gap (5.0-14.0) mmol/L BUN (7-18) mg/dL Creatinine (0.8-1.3) mg/dL Est Cr Clr Drug Dosing mL/min Estimated GFR (MDRD) (>60) Glucose (74-106) mg/dL POC Glucose (74-106) mg/dL Calcium (8.5-10.1) mg/dL Total Bilirubin (0.2-1.0) mg/dL AST (15-37) U/L ALT (12-78) U/L Alkaline Phosphatase (46-116) U/L C-Reactive Protein 11.55 H (0.0-0.3) mg/dL Total Protein (6.4-8.2) g/dL Albumin (3.4-5.0) g/dL Globulin (2.3-3.5) g/dL Albumin/Globulin Ratio (1.2-2.2) SARS-CoV-2 RNA ([facility]) Positive H (NEGATIVE) 11/16/20 11/16/20 11/16/20 Range/Units 06:00 06:00 07:36 WBC (4.5-11.0) K/uL RBC (4.30-5.90) M/uL Hgb (12.0-15.0) g/dL Hct (40.0-54.0) % MCV (80-98) fL MCH (27-31) pg MCHC (32-36) % Plt Count (150-400) K/uL Neut % (Auto) (36-66) % Lymph % (Auto) (24-44) % [place] % (Auto) (2-6) % Eos % (Auto) (2-4) % Baso % (Auto) (0-1) % Add Manual Diff Neutrophils % (Manual) (36-66) % Band Neutrophils % (5-11) % Lymphocytes % (Manual) (24-44) % Monocytes % (Manual) (2-6) % Metamyelocytes % % D-Dimer, Quantitative 598.83 H (0.0-500.0) ng/mL Sodium 132 L (140-148) mmol/L Potassium 4.4 (3.6-5.2) mmol/L Chloride 99 L (100-108) mmol/L Carbon Dioxide 23 (21-32) mmol/L Anion Gap 14.4 H (5.0-14.0) mmol/L BUN 28 H (7-18) mg/dL Creatinine 1.2 (0.8-1.3) mg/dL Est Cr Clr Drug Dosing 54.64 mL/min Estimated GFR (MDRD) > 60 (>60) Glucose 352 H (74-106) mg/dL POC Glucose 285 H (74-106) mg/dL Calcium 8.4 L (8.5-10.1) mg/dL Total Bilirubin 0.5 (0.2-1.0) mg/dL AST 31 (15-37) U/L ALT 51 (12-78) U/L Alkaline Phosphatase 48 (46-116) U/L C-Reactive Protein 20.26 H (0.0-0.3) mg/dL Total Protein 6.4 (6.4-8.2) g/dL Albumin 3.6 (3.4-5.0) g/dL Globulin 2.8 (2.3-3.5) g/dL Albumin/Globulin Ratio 1.3 (1.2-2.2) SARS-CoV-2 RNA ([facility]) (NEGATIVE) Result Diagrams: 11/16/20 06:00 11/16/20 06:00 Blu Results Last 24 hrs: Microbiology 11/15/20 21:05 Group A Streptococcus Rapid Screen - Final Throat NEGATIVE STREP A SCREEN REFERENCE RANGE: NEGATIVE 11/15/20 21:05 Influenza Type A Antigen Screen - Final Nasopharyngeal Swab NEGATIVE INFLUENZA A VIRUS AG REFERENCE RANGE: NEGATIVE Influenza Type B Antigen Screen - Final NEGATIVE INFLUENZA B VIRUS AG REFERENCE RANGE: NEGATIVE Sepsis Event Note - Evaluation Sepsis Screening Result: Sepsis Risk - Focused Exam Vital Signs: Vital Signs Temp Temp Pulse Resp BP BP Pulse Ox 11/16/20 10:47 98.0 F 89 18 136/63 90 L 11/16/20 08:25 126/62 11/16/20 07:46 97.7 F 74 16 126/62 95 11/16/20 07:24 93 L 11/16/20 04:42 96.5 F L 70 22 H 101/48 L 90 L 11/16/20 01:08 91 L 11/16/20 01:07 99.1 F 11/16/20 00:53 11/16/20 00:48 99.1 F 95 24 H 104/73 89 L Pulse Ox 11/16/20 10:47 11/16/20 08:25 11/16/20 07:46 11/16/20 07:24 11/16/20 04:42 11/16/20 01:08 11/16/20 01:07 11/16/20 00:53 92 L 11/16/20 00:48 - Problem List Review Problem List Initiated/Reviewed/Updated: Yes - My Orders Last 24 Hours: My Active Orders 11/15/20 23:30 dexAMETHasone [Decadron] 6 mg IVPUSH Q24H 11/15/20 23:33 Resuscitation Status Routine 11/16/20 00:53 Acetaminophen [TylenoL] 650 mg PO Q4H PRN Albuterol [Ventolin HFA] See Dose Instructions INH Q4H PRN Dextrose 50% in Water 50 ml IV ONETIME PRN Dextrose [Glutose 15] 15 gm PO ONETIME PRN Ondansetron [Zofran] 4 mg IV Q4H PRN Sodium Chloride 0.9% [Saline Flush] 10 ml FLUSH ASDIRECTED PRN polyethylene glycoL 3350 [MiraLAX] 17 gm PO DAILY PRN 11/16/20 00:53 Patient Status [ADT] Routine Ambulate [RC] QID Communication Order [RC] STAT Diabetes Education [RC] Click to Edit Height and Weight [RC] 0500 Intake and Output [RC] QSHIFT Notify Provider Vital Signs [RC] ASDIRECTED Notify Provider [RC] PRN Oxygen Therapy [RC] PRN Pulse Oximetry [RC] CONTINUOUS RT Post Treatment Assessment [RC] Click to Edit Up to Chair [RC] QID VTE/DVT Education [RC] Per Unit Routine Vital Signs [RC] Q4H Saline Lock Insert [OM.PC] Routine 11/16/20 07:00 Insulin Lispro [HumaLOG] See Protocol SUBCUT QIDACANDBED 11/16/20 09:00 Aspirin [Halfprin] 81 mg PO DAILY Furosemide [Lasix] 20 mg PO DAILY Loratadine [Claritin] 10 mg PO DAILY Mometasone/Formoterol [Dulera 200-5 MCG] 0 puff IH BIDRT atorvaSTATin [Lipitor] 10 mg PO DAILY lisinopriL [Prinivil] 2.5 mg PO DAILY 11/16/20 11:00 Enoxaparin [Lovenox] 40 mg SUBCUT Q12H 11/16/20 11:30 GLUCOSE POC LAB TO COLLECT JPM [POC] QIDACANDBED 11/16/20 16:30 GLUCOSE POC LAB TO COLLECT JPM [POC] QIDACANDBED 11/16/20 Dinner Consistent Carbohydrate Diet [DIET] 11/16/20 21:00 GLUCOSE POC LAB TO COLLECT JPM [POC] QIDACANDBED 11/16/20 23:00 Remdesivir 100 mg Sodium Chloride 0.9% [Normal Saline] 100 ml IV Q24H 11/17/20 05:00 BASIC METABOLIC PANEL,BMP [CHEM] Timed 11/17/20 07:30 GLUCOSE POC LAB TO COLLECT JPM [POC] QIDACANDBED 11/17/20 11:30 GLUCOSE POC LAB TO COLLECT JPM [POC] QIDACANDBED 11/17/20 16:30 GLUCOSE POC LAB TO COLLECT JPM [POC] QIDACANDBED 11/17/20 21:00 GLUCOSE POC LAB TO COLLECT JPM [POC] QIDACANDBED 11/18/20 07:30 GLUCOSE POC LAB TO COLLECT JPM [POC] QIDACANDBED 11/18/20 11:30 GLUCOSE POC LAB TO COLLECT JPM [POC] QIDACANDBED 11/18/20 16:30 GLUCOSE POC LAB TO COLLECT JPM [POC] QIDACANDBED 11/18/20 21:00 GLUCOSE POC LAB TO COLLECT JPM [POC] QIDACANDBED 11/19/20 07:30 GLUCOSE POC LAB TO COLLECT JPM [POC] QIDACANDBED 11/19/20 11:30 GLUCOSE POC LAB TO COLLECT JPM [POC] QIDACANDBED 11/19/20 16:30 GLUCOSE POC LAB TO COLLECT JPM [POC] QIDACANDBED 11/19/20 21:00 GLUCOSE POC LAB TO COLLECT JPM [POC] QIDACANDBED 11/20/20 07:30 GLUCOSE POC LAB TO COLLECT JPM [POC] QIDACANDBED 11/20/20 11:30 GLUCOSE POC LAB TO COLLECT JPM [POC] QIDACANDBED 11/20/20 16:30 GLUCOSE POC LAB TO COLLECT JPM [POC] QIDACANDBED 11/20/20 21:00 GLUCOSE POC LAB TO COLLECT JPM [POC] QIDACANDBED 11/21/20 07:30 GLUCOSE POC LAB TO COLLECT JPM [POC] QIDACANDBED 11/21/20 11:30 GLUCOSE POC LAB TO COLLECT JPM [POC] QIDACANDBED 11/21/20 16:30 GLUCOSE POC LAB TO COLLECT JPM [POC] QIDACANDBED 11/21/20 21:00 GLUCOSE POC LAB TO COLLECT JPM [POC] QIDACANDBED 11/22/20 07:30 GLUCOSE POC LAB TO COLLECT JPM [POC] QIDACANDBED 11/22/20 11:30 GLUCOSE POC LAB TO COLLECT JPM [POC] QIDACANDBED 11/22/20 16:30 GLUCOSE POC LAB TO COLLECT JPM [POC] QIDACANDBED 11/22/20 21:00 GLUCOSE POC LAB TO COLLECT JPM [POC] QIDACANDBED 11/23/20 07:30 GLUCOSE POC LAB TO COLLECT JPM [POC] QIDACANDBED 11/23/20 11:30 GLUCOSE POC LAB TO COLLECT JPM [POC] QIDACANDBED 11/23/20 16:30 GLUCOSE POC LAB TO COLLECT JPM [POC] QIDACANDBED 11/23/20 21:00 GLUCOSE POC LAB TO COLLECT JPM [POC] QIDACANDBED 11/24/20 07:30 GLUCOSE POC LAB TO COLLECT JPM [POC] QIDACANDBED 11/24/20 11:30 GLUCOSE POC LAB TO COLLECT JPM [POC] QIDACANDBED 11/24/20 16:30 GLUCOSE POC LAB TO COLLECT JPM [POC] QIDACANDBED 11/24/20 21:00 GLUCOSE POC LAB TO COLLECT JPM [POC] QIDACANDBED 11/25/20 07:30 GLUCOSE POC LAB TO COLLECT JPM [POC] QIDACANDBED 11/25/20 11:30 GLUCOSE POC LAB TO COLLECT JPM [POC] QIDACANDBED 11/25/20 16:30 GLUCOSE POC LAB TO COLLECT JPM [POC] QIDACANDBED 11/25/20 21:00 GLUCOSE POC LAB TO COLLECT JPM [POC] QIDACANDBED - Plan Plan:: ASSESSMENT AND PLAN COVID-19 INFECTION WITH BILATERAL PNEUMONIA-stable since admission, currently requiring 3 L of oxygen via nasal cannula. He does become short of breath with fairly minimal exertion. -Limit IV fluids -Encourage prone ventilation -Remdesivir 200 mg IV today then 100 mg IV daily for an additional 4 days, today is day 2 of 5 -Decadron 6 mg IV daily, today is day 2 -Continuous pulse oximetry -Lovenox 40 mg subcu every 12 hours ACUTE HYPOXIC RESPIRATORY FAILURE-secondary to COVID-19 infection with bilateral pneumonia and underlying COPD -Supplemental oxygen as needed -Albuterol inhaler every 4 hours as needed COPD-he does not typically require oxygen at home -Continue outpatient medications TYPE 2 DIABETES MELLITUS -Hold Metformin, until appetite improves -4 times daily glucometers -Low-dose sliding scale Humalog MAINTENANCE ISSUES -DVT prophylaxis; Lovenox as above -GI prophylaxis; not indicated -Saldivar catheter; not indicated -Nutrition; consistent carbohydrate diet -Nicotine dependence; not required CODE STATUS-FULL CODE ADMISSION STATUS-patient will be admitted to inpatient status, expect at least a 2 night hospital stay for evaluation and management of problems as outlined above. At the time of this admission I do not reasonably expected evaluation and management of this problem will require more than a 96 hour hospital stay. DISPOSITION-anticipate discharge to home after the hospital stay. PRIMARY CARE PROVIDER-Dr. Gilliam
[2020-11-16] MEDS: Enoxaparin 40 MG/0.4 ML Syringe SUBCUT SCH ×2 (12:12→22:59)
[2020-11-16] MEDS ORDERED: metFORMIN 500 MG Tab PO SCH (17:00)
[2020-11-16] MEDS ORDERED: Trolamine Salicylate/Aloe Vera 10% Crm 85 GM Tube TOP PRN (19:36)
[2020-11-16] MEDS: Dexamethasone 4 MG/ML SDV IVPUSH SCH (22:59)
[2020-11-16] MEDS ORDERED: REMDESIVIR 100 MG in Sodium Chloride 0.9% 100 ML IV SCH (23:00)
[2020-11-16] MEDS: Albuterol 8 GM Inhaler INH PRN (23:39)
[2020-11-17] MEDS ORDERED: Furosemide 20 MG/2 ML VIAL IVPUSH ONE (01:04)
[2020-11-17] MEDS ORDERED: Furosemide 20 MG/2 ML VIAL ONE (01:06)
[2020-11-17] MEDS ORDERED: propofoL 100 ML ONE (01:10)
[2020-11-17] MEDS ORDERED: Heparin Sodium 5,000 Units/ML Vial ONE (01:50)
[2020-11-17] MEDS ORDERED: Diltiazem 100 MG AdvVial ONE (02:29)
[2020-11-17] MEDS ORDERED: Sodium Chloride 0.9% 100 ML ONE (02:30)
[2020-11-17] MEDS ORDERED: Norepinephrine 4 MG/4 ML SDV ONE (02:54)
[2020-11-17] MEDS ORDERED: Dextrose 5% in Water 250 ML ONE (02:54)
[2020-11-17] MEDS ORDERED: Levofloxacin/Dextrose 5%-Water 750 MG in Premix Bag 1 BAG IV SCH (03:00)
[2020-11-17] MEDS: Norepinephrine 8 MG in Dextrose 5% in Water 250 ML IV SCH ×4 (03:00→13:40)
[2020-11-17] MEDS ORDERED: Vancomycin 1 GM SDV IV SCH (03:00)
[2020-11-17] MEDS ORDERED: Piperacillin/Tazobactam 3.375 GM in Sodium Chloride 0.9% 50 ML IV SCH (03:00)
[2020-11-17] MEDS ORDERED: Vancomycin 2.5 GM in Sodium Chloride 0.9% 500 ML IV ONE (03:00)
[2020-11-17] MEDS: propofoL 100 ML IV SCH ×5 (03:07→12:26)
[2020-11-17] MEDS ORDERED: Diltiazem 25 MG/5 ML SDV IVPUSH ONE (03:07)
--- NOTE | 2020-11-17 03:19 | CRLCR ---
For Patients: As a result of the Century Cures Act, medical imaging exams and procedure reports are released immediately into your electronic medical record. You may view this report before your referring provider. If you have questions, please contact your health care provider. Indication: Intubation Technique: Chest 1 view Comparison: November 15, 2020 Findings/Impression: Endotracheal tube tip terminates 5.5 cm above the level of the hedy. Bibasilar lung opacities again identified. No pneumothorax. Likely small left pleural effusion. No acute osseous abnormality. Dictated by Shayy Wolf MD @ 11/17/2020 3:18:43 AM (Electronically Signed)
--- NOTE | 2020-11-17 03:49 | PN ---
DATE OF SERVICE: 11/17/2020 This gentleman is on 2nd floor in a negative pressure room because he has COVID. He requires an intubation so he can be placed on a ventilator. This was carried out with the assistance of Respiratory Therapy. The patient was given 200 mg of propofol and 100 mg of succinylcholine. Siria 3 laryngoscope blade was used. There was clear visualization of the cords and the 8.0 endotracheal tube was placed successfully. He was then transferred to ICU. In ICU, I placed an arterial line in his left radial artery after doing a successful Ottoniel test. This was then placed to direct monitoring. His blood pressure at that time was 85/50. NAME OF THE TWO PROCEDURES: 1. Tracheal intubation. 2. Radial artery catheterization, left. Moshe Novak CRNA /[id number]
--- NOTE | 2020-11-17 03:52 | PCM.SN.2 ---
- Free Text/Narrative Note: Mr. Mcgrath unfortunately experienced significant deterioration in his respiratory status late last night. Despite high flow defined oxygen at 95% he developed increased respiratory rate into the mid to high 40s associated with borderline oxygenation. I did discuss with him intubation and mechanical ventilation and he was agreeable to proceed. He was intubated by anesthesia service and placed on ventilator. He has been intermittently hypotensive and has been started on IV norepinephrine as well as IV propofol for sedation. With severe respiratory compromise he did go into atrial fibrillation with rapid vent ricular response. With stabilization of blood pressure he will be started on a continuous infusion of IV diltiazem. Current ventilator settings are assist control of 16 PEEP of 7.5 tidal volume of 460 and 100% FiO2. Current saturations are acceptable and his respiratory rate seems to be slowly de creasing. Remdesivir has been discontinued because of his intubation, he will be continued on IV Decadron. Actemra is not currently available in our facility. Procalcitonin was obtained and found to be markedly elevated at 107. He has been started on IV antibiotic therapy with vancomycin, Zosyn, and levofloxacin. He also has been started on IV Protonix for stress ulcer prophylaxis. On exam he had bilateral rhonchi and rales with expiratory wheezes. Heart rate is rapid and irregular. He was given 20 mg of IV furosemide just prior to intubation. Follow-up chest x-ray shows appropriate p osition of the endotracheal tube as well as bilateral infiltrates. CT scan of the chest will be obtained when he is more stable. New diagnosis; atrial fibrillation with rapid ventricular response, acute hypercapnic and hypoxic respiratory failure requiring intubation and mechanical ventilation. 120 minutes of critical care time was spent in the direct evaluation and management of this patient earlier this morning. Time Documentation
[2020-11-17] MEDS ORDERED: Succinylcholine 200 MG/10 ML MDV ONE ×2 (04:00)
[2020-11-17] MEDS ORDERED: Propofol 200 MG/20 ML SDV ONE (04:00)
[2020-11-17] MEDS: Diltiazem 100 MG in Sodium Chloride 0.9% 100 ML IV SCH ×2 (04:26→13:36)
[2020-11-17] MEDS ORDERED: Insulin Lispro 100 Unit/ML 3 ML KwikPen SUBCUT SCH ×2 (07:00→10:00)
[2020-11-17] MEDS: Formoterol/Mometasone 200-5 MCG 8.8 GM Inhaler IH SCH (07:12)
[2020-11-17] MEDS ORDERED: Heparin Sodium 5,000 UNITS in Sodium Chloride 0.9% 500 ML IV SCH (08:15)
[2020-11-17] MEDS ORDERED: Pantoprazole 40 MG Vial IVPUSH SCH (09:00)
[2020-11-17] MEDS ORDERED: Albuterol 0.083% 2.5 MG/3 ML Neb Soln NEB PRN (09:18)
[2020-11-17] MEDS ORDERED: Piperacillin/Tazobactam/Dext 3.375 GM in Premix Bag 1 BAG IV SCH (09:30)
[2020-11-17] MEDS ORDERED: Acetaminophen 650 MG Supp RECTAL PRN (09:39)
--- NOTE | 2020-11-17 09:41 | PCM.PN ---
- Patient Data Vitals - Most Recent: Last Vital Signs Temp 36.6 C 11/17/20 07:49 Pulse 117 H 11/17/20 07:49 Resp 33 H 11/17/20 07:49 BP 117/64 11/17/20 07:49 Pulse Ox 90 L 11/17/20 07:49 Weight - Most Recent: 109.4 kg I&O - Last 24 Hours: Intake & Output 11/16/20 11/17/20 11/17/20 22:59 06:59 14:59 Intake Total 1000 743 Output Total 200 625 Balance 800 118 Lab Results Last 24 Hours: Laboratory Results - last 24 hr 11/16/20 11/16/20 11/16/20 Range/Units 11:37 16:32 20:55 WBC (4.5-11.0) K/uL RBC (4.30-5.90) M/uL Hgb (12.0-15.0) g/dL Hct (40.0-54.0) % MCV (80-98) fL MCH (27-31) pg MCHC (32-36) % Plt Count (150-400) K/uL Add Manual Diff Neutrophils % (Manual) (36-66) % Band Neutrophils % (5-11) % Lymphocytes % (Manual) (24-44) % Monocytes % (Manual) (2-6) % ESR (0-20) mm/hr D-Dimer, Quantitative (0.0-500.0) ng/mL Puncture Site ABG pH (7.350-7.450) ABG pCO2 (35.0-42.0) mmHg ABG pO2 (75.0-100.0) mmHg ABG HCO3 (22.0-26.0) mmol/L ABG Total CO2 (23.0-27.0) mmol/L ABG O2 Saturation (95.0-98.0) % ABG O2 Content (15.0-23.0) %vol ABG Base Excess mm/L ABG Hemoglobin (13.5-18.0) g/dL ABG Oxyhemoglobin % ABG Carboxyhemoglobin (0.0-1.6) % ABG Methemoglobin % Ottoniel Test O2 Delivery Device Oxygen Flow Rate L Sodium (140-148) mmol/L Potassium (3.6-5.2) mmol/L Chloride (100-108) mmol/L Carbon Dioxide (21-32) mmol/L Anion Gap (5.0-14.0) mmol/L BUN (7-18) mg/dL Creatinine (0.8-1.3) mg/dL Est Cr Clr Drug Dosing mL/min Estimated GFR (MDRD) (>60) Glucose (74-106) mg/dL POC Glucose 326 H 321 H 308 H (74-106) mg/dL Calcium (8.5-10.1) mg/dL Total Bilirubin (0.2-1.0) mg/dL AST (15-37) U/L ALT (12-78) U/L Alkaline Phosphatase (46-116) U/L Troponin I (0.000-0.056) ng/mL C-Reactive Protein (0.0-0.3) mg/dL Total Protein (6.4-8.2) g/dL Albumin (3.4-5.0) g/dL Globulin (2.3-3.5) g/dL Albumin/Globulin Ratio (1.2-2.2) Procalcitonin ng/mL 11/17/20 11/17/20 11/17/20 Range/Units 02:21 02:37 02:37 WBC 2.9 L (4.5-11.0) K/uL RBC 4.85 (4.30-5.90) M/uL Hgb 14.0 (12.0-15.0) g/dL Hct 40.1 (40.0-54.0) % MCV 83 (80-98) fL MCH 29 (27-31) pg MCHC 35 (32-36) % Plt Count 100 L (150-400) K/uL Add Manual Diff Yes Neutrophils % (Manual) 41 (36-66) % Band Neutrophils % 32 H (5-11) % Lymphocytes % (Manual) 20 L (24-44) % Monocytes % (Manual) 7 H (2-6) % ESR 49 H (0-20) mm/hr D-Dimer, Quantitative (0.0-500.0) ng/mL Puncture Site A-line ABG pH 7.275 L (7.350-7.450) ABG pCO2 45.7 H (35.0-42.0) mmHg ABG pO2 72.4 L (75.0-100.0) mmHg ABG HCO3 20.6 L (22.0-26.0) mmol/L ABG Total CO2 18.6 L (23.0-27.0) mmol/L ABG O2 Saturation 92.4 L (95.0-98.0) % ABG O2 Content 18.4 (15.0-23.0) %vol ABG Base Excess -5.9 mm/L ABG Hemoglobin 14.6 (13.5-18.0) g/dL ABG Oxyhemoglobin 89.8 % ABG Carboxyhemoglobin 1.5 (0.0-1.6) % ABG Methemoglobin 1.3 % Ottoniel Test A-line O2 Delivery Device Nasal cannula Oxygen Flow Rate L Sodium 129 L (140-148) mmol/L Potassium 4.4 (3.6-5.2) mmol/L Chloride 96 L (100-108) mmol/L Carbon Dioxide 20 L (21-32) mmol/L Anion Gap 17.4 H (5.0-14.0) mmol/L BUN 33 H (7-18) mg/dL Creatinine 1.3 (0.8-1.3) mg/dL Est Cr Clr Drug Dosing 50.44 mL/min Estimated GFR (MDRD) 55 L (>60) Glucose 299 H (74-106) mg/dL POC Glucose (74-106) mg/dL Calcium 8.6 (8.5-10.1) mg/dL Total Bilirubin 0.8 D (0.2-1.0) mg/dL AST 41 H (15-37) U/L ALT 42 (12-78) U/L Alkaline Phosphatase 43 L (46-116) U/L Troponin I < 0.017 (0.000-0.056) ng/mL C-Reactive Protein (0.0-0.3) mg/dL Total Protein 6.6 (6.4-8.2) g/dL Albumin 3.1 L (3.4-5.0) g/dL Globulin 3.5 (2.3-3.5) g/dL Albumin/Globulin Ratio 0.9 L (1.2-2.2) Procalcitonin ng/mL 11/17/20 11/17/20 11/17/20 Range/Units 02:53 08:00 08:00 WBC (4.5-11.0) K/uL RBC (4.30-5.90) M/uL Hgb (12.0-15.0) g/dL Hct (40.0-54.0) % MCV (80-98) fL MCH (27-31) pg MCHC (32-36) % Plt Count (150-400) K/uL Add Manual Diff Neutrophils % (Manual) (36-66) % Band Neutrophils % (5-11) % Lymphocytes % (Manual) (24-44) % Monocytes % (Manual) (2-6) % ESR (0-20) mm/hr D-Dimer, Quantitative 909.22 H (0.0-500.0) ng/mL Puncture Site ABG pH (7.350-7.450) ABG pCO2 (35.0-42.0) mmHg ABG pO2 (75.0-100.0) mmHg ABG HCO3 (22.0-26.0) mmol/L ABG Total CO2 (23.0-27.0) mmol/L ABG O2 Saturation (95.0-98.0) % ABG O2 Content (15.0-23.0) %vol ABG Base Excess mm/L ABG Hemoglobin (13.5-18.0) g/dL ABG Oxyhemoglobin % ABG Carboxyhemoglobin (0.0-1.6) % ABG Methemoglobin % Ottoniel Test O2 Delivery Device Oxygen Flow Rate L Sodium 129 L (140-148) mmol/L Potassium 3.7 (3.6-5.2) mmol/L Chloride 97 L (100-108) mmol/L Carbon Dioxide 21 (21-32) mmol/L Anion Gap 14.7 H (5.0-14.0) mmol/L BUN 33 H (7-18) mg/dL Creatinine 1.2 (0.8-1.3) mg/dL Est Cr Clr Drug Dosing 54.64 mL/min Estimated GFR (MDRD) > 60 (>60) Glucose 294 H (74-106) mg/dL POC Glucose (74-106) mg/dL Calcium 8.3 L (8.5-10.1) mg/dL Total Bilirubin (0.2-1.0) mg/dL AST (15-37) U/L ALT (12-78) U/L Alkaline Phosphatase (46-116) U/L Troponin I (0.000-0.056) ng/mL C-Reactive Protein (0.0-0.3) mg/dL Total Protein (6.4-8.2) g/dL Albumin (3.4-5.0) g/dL Globulin (2.3-3.5) g/dL Albumin/Globulin Ratio (1.2-2.2) Procalcitonin 107.80 H* ng/mL 11/17/20 11/17/20 Range/Units 08:00 08:00 WBC (4.5-11.0) K/uL RBC (4.30-5.90) M/uL Hgb (12.0-15.0) g/dL Hct (40.0-54.0) % MCV (80-98) fL MCH (27-31) pg MCHC (32-36) % Plt Count (150-400) K/uL Add Manual Diff Neutrophils % (Manual) (36-66) % Band Neutrophils % (5-11) % Lymphocytes % (Manual) (24-44) % Monocytes % (Manual) (2-6) % ESR (0-20) mm/hr D-Dimer, Quantitative (0.0-500.0) ng/mL Puncture Site A-line ABG pH 7.385 (7.350-7.450) ABG pCO2 32.1 L (35.0-42.0) mmHg ABG pO2 64.5 L (75.0-100.0) mmHg ABG HCO3 18.8 L (22.0-26.0) mmol/L ABG Total CO2 16.6 L (23.0-27.0) mmol/L ABG O2 Saturation 92.7 L (95.0-98.0) % ABG O2 Content 17.7 (15.0-23.0) %vol ABG Base Excess -4.8 mm/L ABG Hemoglobin 14.0 (13.5-18.0) g/dL ABG Oxyhemoglobin 90.0 % ABG Carboxyhemoglobin 1.7 H (0.0-1.6) % ABG Methemoglobin 1.2 % Ottoniel Test A-line O2 Delivery Device Nasal cannula Oxygen Flow Rate L Sodium (140-148) mmol/L Potassium (3.6-5.2) mmol/L Chloride (100-108) mmol/L Carbon Dioxide (21-32) mmol/L Anion Gap (5.0-14.0) mmol/L BUN (7-18) mg/dL Creatinine (0.8-1.3) mg/dL Est Cr Clr Drug Dosing mL/min Estimated GFR (MDRD) (>60) Glucose (74-106) mg/dL POC Glucose (74-106) mg/dL Calcium (8.5-10.1) mg/dL Total Bilirubin (0.2-1.0) mg/dL AST (15-37) U/L ALT (12-78) U/L Alkaline Phosphatase (46-116) U/L Troponin I (0.000-0.056) ng/mL C-Reactive Protein 31.99 H (0.0-0.3) mg/dL Total Protein (6.4-8.2) g/dL Albumin (3.4-5.0) g/dL Globulin (2.3-3.5) g/dL Albumin/Globulin Ratio (1.2-2.2) Procalcitonin ng/mL Blu Results Last 24 Hours: Microbiology 11/15/20 21:05 Quick Strep Confirmation Culture - Final Throat NO GROUP A STREP ISOLATED REFERENCE RANGE: NEGATIVE Group A Streptococcus Rapid Screen - Final NEGATIVE STREP A SCREEN REFERENCE RANGE: NEGATIVE Med Orders - Current: Current Medications Acetaminophen (Acetaminophen 650 Mg Supp) 650 mg RECTAL Q4H PRN PRN Reason: Fever Albuterol (Albuterol 8 Gm Inhaler) 0 gm INH Q4H PRN PRN Reason: Dyspnea Last Admin: 11/16/20 23:39 Dose: 2 puff Documented by: Dexamethasone (Dexamethasone 4 Mg/Ml Sdv) 6 mg IVPUSH Q24H [facility] Last Admin: 11/16/20 22:59 Dose: 6 mg Documented by: Dextrose (Glucose Gel 15 Gm In 37.5 Gm Tube) 15 gm PO ONETIME PRN PRN Reason: Hypoglycemia Dextrose/Water (50% Dextrose In Water 50 Ml Syringe) 50 ml IV ONETIME PRN PRN Reason: Hypoglycemia Enoxaparin Sodium (Enoxaparin 40 Mg/0.4 Ml Syringe) 40 mg SUBCUT Q12H [facility]OF[facility] Last Admin: 11/16/20 22:59 Dose: 40 mg Documented by: Heparin Sodium (Porcine) (Heparin Sodium 100 Units/Ml 5 Ml Syringe) 500 units FLUSH ASDIRECTED PRN PRN Reason: IV Use Propofol (Diprivan 100 Ml) 100 mls @ 13.532 mls/hr IV TITRATE [facility]; Protocol Last Admin: 11/17/20 07:29 Dose: 60 mcg/kg/min, 40.595 mls/hr Documented by: Diltiazem HCl 100 mg/ Sodium (Chloride) 100 mls @ 5 mls/hr IV TITRATE [facility]; Protocol Last Titration: 11/17/20 08:02 Dose: 15 mg/hr, 15 mls/hr Documented by: Norepinephrine Bitartrate 8 mg (/ Dextrose/Water) 258 mls @ 3.87 mls/hr IV TITRATE [facility]OFIA; Protocol Last Infusion: 11/17/20 04:25 Dose: 8 mcg/min, 15.48 mls/hr Documented by: Vancomycin HCl 1.75 gm/ Sodium (Chloride) 250 mls @ 166.667 mls/hr IV Q12H [facility] Piperacillin/Tazobactam/ (Dextrose 3.375 gm/ Premix) 50 mls @ 100 mls/hr IV Q6H [facility] Levofloxacin/Dextrose 750 mg/ (Premix) 150 mls @ 100 mls/hr IV Q24H [facility] Heparin Sodium (Porcine) 5,000 (units/ Sodium Chloride) 501 mls @ 0 mls/hr IV ASDIRECTED [facility] Insulin Human Lispro (Insulin Lispro 100 Unit/Ml 3 Ml Kwikpen) 0 unit SUBCUT Q6H [facility]; Protocol Mometasone Furoate/Formoterol Fumar (Formoterol/Mometasone 200-5 Mcg 8.8 Gm Inhaler) 0 puff IH BIDRT [facility] Last Admin: 11/17/20 07:12 Dose: Not Given Documented by: Ondansetron HCl (Ondansetron 4 Mg/2 Ml Sdv) 4 mg IV Q4H PRN PRN Reason: Nausea/Vomiting Pantoprazole Sodium (Pantoprazole 40 Mg Vial) 40 mg IVPUSH DAILY [facility] Sodium Chloride (Sodium Chloride 0.9% 10 Ml Syringe) 10 ml FLUSH ASDIRECTED PRN PRN Reason: Keep Vein Open Trolamine Salicylate (Trolamine Salicylate/Aloe Vera 10% Crm 85 Gm Tube) 0 gm TOP Q1H PRN PRN Reason: Pain Last Admin: 11/16/20 20:54 Dose: 1 applic Documented by: Discontinued Medications Acetaminophen (Acetaminophen 325 Mg Tab) 650 mg PO Q4H PRN PRN Reason: Pain (Mild 1-3)/fever Last Admin: 11/16/20 15:53 Dose: 650 mg Documented by: Albuterol (Albuterol 0.083% 2.5 Mg/3 Ml Neb Soln) 2.5 mg NEB Q2H PRN PRN Reason: Wheezing Albuterol/Ipratropium (Albuterol/Ipratropium 3.0-0.5 Mg/3 Ml Neb Soln) 3 ml NEB ONETIME ONE Stop: 11/15/20 20:52 Last Admin: 11/15/20 21:08 Dose: 3 ml Documented by: Aspirin (Aspirin 81 Mg Tab.Ec) 81 mg PO DAILY [facility] Last Admin: 11/16/20 08:23 Dose: 81 mg Documented by: Atorvastatin Calcium (Atorvastatin 10 Mg Tab) 10 mg PO DAILY [facility] Last Admin: 11/16/20 08:23 Dose: 10 mg Documented by: Diltiazem HCl (Diltiazem 100 Mg Advvial) Confirm Administered Dose 100 mg .ROUTE .STK-MED ONE Stop: 11/17/20 02:30 Last Admin: 11/17/20 03:10 Dose: Not Given Documented by: Diltiazem HCl (Diltiazem 25 Mg/5 Ml Sdv) 10 mg IVPUSH ONETIME ONE Stop: 11/17/20 03:08 Last Admin: 11/17/20 04:27 Dose: 10 mg Documented by: Enoxaparin Sodium (Enoxaparin 40 Mg/0.4 Ml Syringe) 40 mg SUBCUT Q12H [facility] Last Admin: 11/16/20 01:07 Dose: 40 mg Documented by: Furosemide (Furosemide 20 Mg Tab) 20 mg PO DAILY [facility] Last Admin: 11/16/20 08:24 Dose: 20 mg Documented by: Furosemide (Furosemide 20 Mg/2 Ml Vial) 20 mg IVPUSH NOW ONE Stop: 11/17/20 01:05 Last Admin: 11/17/20 01:09 Dose: 20 mg Documented by: Furosemide (Furosemide 20 Mg/2 Ml Vial) Confirm Administered Dose 20 mg .ROUTE .STK-MED ONE Stop: 11/17/20 01:07 Last Admin: 11/17/20 01:16 Dose: Not Given Documented by: Heparin Sodium (Porcine) (Heparin Sodium 5,000 Units/Ml Vial) Confirm Administered Dose 5,000 units .ROUTE .STK-MED ONE Stop: 11/17/20 01:51 Last Admin: 11/17/20 03:08 Dose: 5,000 units Documented by: Remdesivir 200 mg/ Sodium (Chloride) 250 mls @ 250 mls/hr IV ONETIME ONE Stop: 11/15/20 23:29 Last Admin: 11/15/20 23:58 Dose: 250 mls/hr Documented by: Remdesivir 100 mg/ Sodium (Chloride) 100 mls @ 100 mls/hr IV Q24H [facility] Stop: 11/19/20 23:59 Last Admin: 11/16/20 22:59 Dose: 100 mls/hr Documented by: Propofol (Diprivan 100 Ml) Confirm Administered Dose 100 mls @ as directed .ROUTE .STK-MED ONE Stop: 11/17/20 01:11 Last Admin: 11/17/20 01:23 Dose: Not Given Documented by: Sodium Chloride (Normal Saline) Confirm Administered Dose 100 mls @ as directed .ROUTE .STK-MED ONE Stop: 11/17/20 02:31 Last Admin: 11/17/20 03:09 Dose: Not Given Documented by: Piperacillin Sod/Tazobactam (Sod 3.375 gm/ Sodium Chloride) 50 mls @ 100 mls/hr IV Q6H [facility] Last Admin: 11/17/20 03:30 Dose: 100 mls/hr Documented by: Levofloxacin/Dextrose 750 mg/ (Premix) 150 mls @ 100 mls/hr IV Q24H [facility] Last Admin: 11/17/20 03:59 Dose: 100 mls/hr Documented by: Dextrose/Water (Dextrose 5% In Water) Confirm Administered Dose 250 mls @ as directed .ROUTE .STK-MED ONE Stop: 11/17/20 02:55 Last Admin: 11/17/20 03:09 Dose: Not Given Documented by: Vancomycin HCl 2.5 gm/ Sodium (Chloride) 500 mls @ 250 mls/hr IV ONETIME ONE Stop: 11/17/20 04:59 Last Admin: 11/17/20 05:46 Dose: 250 mls/hr Documented by: Insulin Human Lispro (Insulin Lispro 100 Unit/Ml 3 Ml Kwikpen) 0 unit SUBCUT QIDACANDBED [facility]; Protocol Last Admin: 11/16/20 20:56 Dose: 4 unit Documented by: Insulin Human Lispro (Insulin Lispro 100 Unit/Ml 3 Ml Kwikpen) 0 unit SUBCUT QIDACANDBED [facility]; Protocol Lisinopril (Lisinopril 2.5 Mg Tab) 2.5 mg PO DAILY [facility] Last Admin: 11/16/20 08:25 Dose: 2.5 mg Documented by: Loratadine (Loratadine 10 Mg Tab) 10 mg PO DAILY [facility] Last Admin: 11/16/20 08:23 Dose: 10 mg Documented by: Metformin HCl (Metformin 500 Mg Tab) 500 mg PO BIDMEALS [facility] Last Admin: 11/16/20 19:16 Dose: 500 mg Documented by: Norepinephrine Bitartrate (Norepinephrine 4 Mg/4 Ml Sdv) Confirm Administered Dose 4 mg .ROUTE .STK-MED ONE Stop: 11/17/20 02:55 Last Admin: 11/17/20 03:38 Dose: Not Given Documented by: Polyethylene Glycol (Polyethylene Glycol 3350 Powder 17 Gm Packet) 17 gm PO DAILY PRN PRN Reason: Constipation Vancomycin HCl (Vancomycin 1 Gm Sdv) 1 gm IV .PHARMACY TO DOSE [facility] Stop: 11/17/20 03:01 - Exam Urinary Catheter Total Time: 0Days 0Hours - Patient Data Lab Results Last 24 hrs: Laboratory Results - last 24 hr 11/16/20 11/16/20 11/16/20 Range/Units 11:37 16:32 20:55 WBC (4.5-11.0) K/uL RBC (4.30-5.90) M/uL Hgb (12.0-15.0) g/dL Hct (40.0-54.0) % MCV (80-98) fL MCH (27-31) pg MCHC (32-36) % Plt Count (150-400) K/uL Add Manual Diff Neutrophils % (Manual) (36-66) % Band Neutrophils % (5-11) % Lymphocytes % (Manual) (24-44) % Monocytes % (Manual) (2-6) % ESR (0-20) mm/hr D-Dimer, Quantitative (0.0-500.0) ng/mL Puncture Site ABG pH (7.350-7.450) ABG pCO2 (35.0-42.0) mmHg ABG pO2 (75.0-100.0) mmHg ABG HCO3 (22.0-26.0) mmol/L ABG Total CO2 (23.0-27.0) mmol/L ABG O2 Saturation (95.0-98.0) % ABG O2 Content (15.0-23.0) %vol ABG Base Excess mm/L ABG Hemoglobin (13.5-18.0) g/dL ABG Oxyhemoglobin % ABG Carboxyhemoglobin (0.0-1.6) % ABG Methemoglobin % Ottoniel Test O2 Delivery Device Oxygen Flow Rate L Sodium (140-148) mmol/L Potassium (3.6-5.2) mmol/L Chloride (100-108) mmol/L Carbon Dioxide (21-32) mmol/L Anion Gap (5.0-14.0) mmol/L BUN (7-18) mg/dL Creatinine (0.8-1.3) mg/dL Est Cr Clr Drug Dosing mL/min Estimated GFR (MDRD) (>60) Glucose (74-106) mg/dL POC Glucose 326 H 321 H 308 H (74-106) mg/dL Calcium (8.5-10.1) mg/dL Total Bilirubin (0.2-1.0) mg/dL AST (15-37) U/L ALT (12-78) U/L Alkaline Phosphatase (46-116) U/L Troponin I (0.000-0.056) ng/mL C-Reactive Protein (0.0-0.3) mg/dL Total Protein (6.4-8.2) g/dL Albumin (3.4-5.0) g/dL Globulin (2.3-3.5) g/dL Albumin/Globulin Ratio (1.2-2.2) Procalcitonin ng/mL 11/17/20 11/17/20 11/17/20 Range/Units 02:21 02:37 02:37 WBC 2.9 L (4.5-11.0) K/uL RBC 4.85 (4.30-5.90) M/uL Hgb 14.0 (12.0-15.0) g/dL Hct 40.1 (40.0-54.0) % MCV 83 (80-98) fL MCH 29 (27-31) pg MCHC 35 (32-36) % Plt Count 100 L (150-400) K/uL Add Manual Diff Yes Neutrophils % (Manual) 41 (36-66) % Band Neutrophils % 32 H (5-11) % Lymphocytes % (Manual) 20 L (24-44) % Monocytes % (Manual) 7 H (2-6) % ESR 49 H (0-20) mm/hr D-Dimer, Quantitative (0.0-500.0) ng/mL Puncture Site A-line ABG pH 7.275 L (7.350-7.450) ABG pCO2 45.7 H (35.0-42.0) mmHg ABG pO2 72.4 L (75.0-100.0) mmHg ABG HCO3 20.6 L (22.0-26.0) mmol/L ABG Total CO2 18.6 L (23.0-27.0) mmol/L ABG O2 Saturation 92.4 L (95.0-98.0) % ABG O2 Content 18.4 (15.0-23.0) %vol ABG Base Excess -5.9 mm/L ABG Hemoglobin 14.6 (13.5-18.0) g/dL ABG Oxyhemoglobin 89.8 % ABG Carboxyhemoglobin 1.5 (0.0-1.6) % ABG Methemoglobin 1.3 % Ottoniel Test A-line O2 Delivery Device Nasal cannula Oxygen Flow Rate L Sodium 129 L (140-148) mmol/L Potassium 4.4 (3.6-5.2) mmol/L Chloride 96 L (100-108) mmol/L Carbon Dioxide 20 L (21-32) mmol/L Anion Gap 17.4 H (5.0-14.0) mmol/L BUN 33 H (7-18) mg/dL Creatinine 1.3 (0.8-1.3) mg/dL Est Cr Clr Drug Dosing 50.44 mL/min Estimated GFR (MDRD) 55 L (>60) Glucose 299 H (74-106) mg/dL POC Glucose (74-106) mg/dL Calcium 8.6 (8.5-10.1) mg/dL Total Bilirubin 0.8 D (0.2-1.0) mg/dL AST 41 H (15-37) U/L ALT 42 (12-78) U/L Alkaline Phosphatase 43 L (46-116) U/L Troponin I < 0.017 (0.000-0.056) ng/mL C-Reactive Protein (0.0-0.3) mg/dL Total Protein 6.6 (6.4-8.2) g/dL Albumin 3.1 L (3.4-5.0) g/dL Globulin 3.5 (2.3-3.5) g/dL Albumin/Globulin Ratio 0.9 L (1.2-2.2) Procalcitonin ng/mL 11/17/20 11/17/20 11/17/20 Range/Units 02:53 08:00 08:00 WBC (4.5-11.0) K/uL RBC (4.30-5.90) M/uL Hgb (12.0-15.0) g/dL Hct (40.0-54.0) % MCV (80-98) fL MCH (27-31) pg MCHC (32-36) % Plt Count (150-400) K/uL Add Manual Diff Neutrophils % (Manual) (36-66) % Band Neutrophils % (5-11) % Lymphocytes % (Manual) (24-44) % Monocytes % (Manual) (2-6) % ESR (0-20) mm/hr D-Dimer, Quantitative 909.22 H (0.0-500.0) ng/mL Puncture Site ABG pH (7.350-7.450) ABG pCO2 (35.0-42.0) mmHg ABG pO2 (75.0-100.0) mmHg ABG HCO3 (22.0-26.0) mmol/L ABG Total CO2 (23.0-27.0) mmol/L ABG O2 Saturation (95.0-98.0) % ABG O2 Content (15.0-23.0) %vol ABG Base Excess mm/L ABG Hemoglobin (13.5-18.0) g/dL ABG Oxyhemoglobin % ABG Carboxyhemoglobin (0.0-1.6) % ABG Methemoglobin % Ottoniel Test O2 Delivery Device Oxygen Flow Rate L Sodium 129 L (140-148) mmol/L Potassium 3.7 (3.6-5.2) mmol/L Chloride 97 L (100-108) mmol/L Carbon Dioxide 21 (21-32) mmol/L Anion Gap 14.7 H (5.0-14.0) mmol/L BUN 33 H (7-18) mg/dL Creatinine 1.2 (0.8-1.3) mg/dL Est Cr Clr Drug Dosing 54.64 mL/min Estimated GFR (MDRD) > 60 (>60) Glucose 294 H (74-106) mg/dL POC Glucose (74-106) mg/dL Calcium 8.3 L (8.5-10.1) mg/dL Total Bilirubin (0.2-1.0) mg/dL AST (15-37) U/L ALT (12-78) U/L Alkaline Phosphatase (46-116) U/L Troponin I (0.000-0.056) ng/mL C-Reactive Protein (0.0-0.3) mg/dL Total Protein (6.4-8.2) g/dL Albumin (3.4-5.0) g/dL Globulin (2.3-3.5) g/dL Albumin/Globulin Ratio (1.2-2.2) Procalcitonin 107.80 H* ng/mL 11/17/20 11/17/20 Range/Units 08:00 08:00 WBC (4.5-11.0) K/uL RBC (4.30-5.90) M/uL Hgb (12.0-15.0) g/dL Hct (40.0-54.0) % MCV (80-98) fL MCH (27-31) pg MCHC (32-36) % Plt Count (150-400) K/uL Add Manual Diff Neutrophils % (Manual) (36-66) % Band Neutrophils % (5-11) % Lymphocytes % (Manual) (24-44) % Monocytes % (Manual) (2-6) % ESR (0-20) mm/hr D-Dimer, Quantitative (0.0-500.0) ng/mL Puncture Site A-line ABG pH 7.385 (7.350-7.450) ABG pCO2 32.1 L (35.0-42.0) mmHg ABG pO2 64.5 L (75.0-100.0) mmHg ABG HCO3 18.8 L (22.0-26.0) mmol/L ABG Total CO2 16.6 L (23.0-27.0) mmol/L ABG O2 Saturation 92.7 L (95.0-98.0) % ABG O2 Content 17.7 (15.0-23.0) %vol ABG Base Excess -4.8 mm/L ABG Hemoglobin 14.0 (13.5-18.0) g/dL ABG Oxyhemoglobin 90.0 % ABG Carboxyhemoglobin 1.7 H (0.0-1.6) % ABG Methemoglobin 1.2 % Ottoniel Test A-line O2 Delivery Device Nasal cannula Oxygen Flow Rate L Sodium (140-148) mmol/L Potassium (3.6-5.2) mmol/L Chloride (100-108) mmol/L Carbon Dioxide (21-32) mmol/L Anion Gap (5.0-14.0) mmol/L BUN (7-18) mg/dL Creatinine (0.8-1.3) mg/dL Est Cr Clr Drug Dosing mL/min Estimated GFR (MDRD) (>60) Glucose (74-106) mg/dL POC Glucose (74-106) mg/dL Calcium (8.5-10.1) mg/dL Total Bilirubin (0.2-1.0) mg/dL AST (15-37) U/L ALT (12-78) U/L Alkaline Phosphatase (46-116) U/L Troponin I (0.000-0.056) ng/mL C-Reactive Protein 31.99 H (0.0-0.3) mg/dL Total Protein (6.4-8.2) g/dL Albumin (3.4-5.0) g/dL Globulin (2.3-3.5) g/dL Albumin/Globulin Ratio (1.2-2.2) Procalcitonin ng/mL Result Diagrams: 11/17/20 02:37 11/17/20 08:00 Blu Results Last 24 hrs: Microbiology 11/15/20 21:05 Quick Strep Confirmation Culture - Final Throat NO GROUP A STREP ISOLATED REFERENCE RANGE: NEGATIVE Group A Streptococcus Rapid Screen - Final NEGATIVE STREP A SCREEN REFERENCE RANGE: NEGATIVE Sepsis Event Note - Evaluation Sepsis Screening Result: Sepsis Risk - Focused Exam Vital Signs: Vital Signs Temp Temp Pulse Resp BP BP Pulse Ox 11/17/20 07:49 36.6 C 117 H 33 H 117/64 90 L 11/17/20 06:00 116 H 29 H 116/54 L 115/64 91 L 11/17/20 05:50 126 H 27 H 117/60 93 L 11/17/20 05:00 118 H 29 H 109/55 L 99/60 92 L 11/17/20 04:33 126 H 30 H 108/55 L 91 L 11/17/20 04:00 133 H 29 H 102/57 L 92 L 11/17/20 03:49 134 H 29 H 87/54 L 92 L 11/17/20 03:42 131 H 29 H 83/47 L 84/48 L 92 L 11/17/20 03:19 134 H 32 H 81/52 L 89 L 11/17/20 02:41 121 H 34 H 100/55 L 89 L 11/17/20 02:39 36.6 C 148 H 138/83 151/126 H 11/17/20 02:25 140 H 41 H 87/44 L 88 L 11/17/20 01:34 129 H 48 H 102/70 97 11/17/20 01:28 136 H 48 H 119/58 L 95 11/17/20 01:13 125 H 48 H 127/64 89 L 11/17/20 00:10 92 L 11/17/20 00:04 88/66 L 11/17/20 00:02 37.6 C 120 H 42 H 100/59 L 95 11/16/20 23:00 37.8 C 95 42 H 99/58 L 89 L - My Orders Last 24 Hours: My Active Orders 11/17/20 09:18 RT Aerosol Therapy [RC] ASDIRECTED 11/17/20 09:33 Blood Glucose Check, Bedside [RC] Q6H Communication Order [RC] PRN Communication Order [RC] PRN 11/17/20 09:39 Acetaminophen [Tylenol] 650 mg RECTAL Q4H PRN 11/17/20 09:45 Insulin Lispro [HumaLOG] See Protocol SUBCUT Q6H 11/17/20 Lunch NPO Now [Nothing per Oral Now Diet] [DIET] 11/18/20 01:45 Insert Saldivar Catheter [Insert Urinary Catheter] [OM.PC] Q24H - Plan Plan:: ASSESSMENT AND PLAN COVID-19 INFECTION WITH BILATERAL PNEUMONIA-stable since admission, currently requiring 3 L of oxygen via nasal cannula. He does become short of breath with fairly minimal exertion. -Limit IV fluids -Encourage prone ventilation -Remdesivir 200 mg IV today then 100 mg IV daily for an additional 4 days, today is day 2 of 5 -Decadron 6 mg IV daily, today is day 2 -Continuous pulse oximetry -Lovenox 40 mg subcu every 12 hours ACUTE HYPOXIC RESPIRATORY FAILURE-secondary to COVID-19 infection with bilateral pneumonia and underlying COPD -Supplemental oxygen as needed -Albuterol inhaler every 4 hours as needed COPD-he does not typically require oxygen at home -Continue outpatient medications TYPE 2 DIABETES MELLITUS -Hold Metformin, until appetite improves -4 times daily glucometers -Low-dose sliding scale Humalog MAINTENANCE ISSUES -DVT prophylaxis; Lovenox as above -GI prophylaxis; not indicated -Saldivar catheter; not indicated -Nutrition; consistent carbohydrate diet -Nicotine dependence; not required CODE STATUS-FULL CODE ADMISSION STATUS-patient will be admitted to inpatient status, expect at least a 2 night hospital stay for evaluation and management of problems as outlined above. At the time of this admission I do not reasonably expected evaluation and management of this problem will require more than a 96 hour hospital stay. DISPOSITION-anticipate discharge to home after the hospital stay. PRIMARY CARE PROVIDER-Dr. Gilliam
--- NOTE | 2020-11-17 09:47 | CR ---
CHEST: Portable 11/15/2020 at 11:14 PM CLINICAL HISTORY:Cough, covid COMPARISON:2016 FINDINGS: Patient is patchy bilateral lower lobe infiltrates. There is some consolidation in the left infrahilar region. There are no effusions. Impression: Bilateral lower lobe pulmonary infiltrates greater on the left
[2020-11-17] MEDS ORDERED: LORazepam 2 MG/ML SDV IVPUSH PRN (09:53)
[2020-11-17] MEDS ORDERED: Furosemide 40 MG/4 ML VIAL IVPUSH ONE (10:00)
[2020-11-17] MEDS: Enoxaparin 40 MG/0.4 ML Syringe SUBCUT SCH (10:06)
[2020-11-17] MEDS: Albuterol 8 GM Inhaler INH PRN (10:34)
--- NOTE | 2020-11-17 11:59 | CR ---
CHEST: Portable 11/17/2020 at 11:45 AM CLINICAL HISTORY:Postintubation COMPARISON:Earlier same day FINDINGS: Endotracheal tube remains in the mid trachea. There has been the addition of a left subclavian catheter. The tip is in the superior vena cava brachiocephalic junction. There is no pneumothorax. Patient has dense bibasal infiltrates. There are also appears to be some segmental atelectasis in the right middle lobe and some consolidation in the left lower lobe. There is a small left effusion. Impression: Endotracheal tube and left subclavian catheter appear in good position No pneumothorax Moderate bibasilar airspace disease described above Small left effusion
--- NOTE | 2020-11-17 12:09 | PCM.DCSUM1 ---
Discharge Summary - Hospital Course Brief History: 65-year-old male with history of nonoxygen dependent COPD, suboptimally controlled type 2 diabetes mellitus, obesity and hypertension who presented with increasing cough, shortness of breath and weakness. He was admitted for management of COVID-19 pneumonia with acute respiratory failure with hypoxia. Diagnosis: Stroke: No - Discharge Data Discharge Date: 11/17/20 Discharge Disposition: Home, Self-Care 01 Condition: Critical - Referral to Home Health Primary Care Physician: Slim Gilliam MD - Patient Summary/Data Consults: Consultations 11/17/20 01:19 Consult to Physician [CONS] Stat Consulting Provider: Isidoro Novak Courtesy Call Completed to Consulting Physician: Yes Reason for Consult: Resp failure, intubation 11/17/20 08:08 Consult to Physician [CONS] Urgent Consulting Provider: Brennan Mc Courtesy Call Completed to Consulting Physician: Yes Reason for Consult: Central line placement Hospital Course: Simon presented to the emergency room with increasing cough, shortness of breath and weakness. Work-up in the emergency room was remarkable for a positive Covid test along with respiratory failure requiring 2 to 3 L of supplemental oxygen. White blood cell count and platelets were slightly low. Initial CRP was about 11 and his D-dimer was 578. He was started on enoxaparin, IV dexamethasone as well as IV remdesivir. He was admitted to the hospital for further management. Over the first 24 hours he was relatively stable with no significant change in his supplemental oxygen requirements. Unfortunately late in the evening on November 16 his respiratory status started to deteriorate. He required increasing amounts of supplemental oxygen via initially high flow nasal cannula and then heated/high flow oxygen. Despite these increases his respiratory status continued to decline and he was urgently intubated and started on mechanical ventilation. During the deterioration reevaluation of his laboratory studies revealed a normal troponin but a procalcitonin that was quite elevated at more than 100. Broad-spectrum antibiotics were initiated to cover possible superimposed bacterial infection. Chest x-ray obtained did show a possible right lower lung infiltrate. Initial arterial blood gases showed a mild elevation in PCO2 at 46. Repeat blood gas testing a little while later did show pH of 3.85 with a PCO2 in the 30s. Also around the time of the deterioration he was noted to be in rapid atrial fibrillation. He has been started on a diltiazem infusion to help manage his rapid atrial fibrillation. So far this has been helpful with heart rates in the 100-110 range. He is currently requiring norepinephrine to maintain his systolic blood pressure. His blood pressures have been normal up until he has deterioration and the initiation of propofol for sedation. Given his worsening respiratory status and now intubation and mechanical ventilation we have requested transfer to a higher level of care with pulmonology/critical care availability. He did receive 2 doses of IV dexamethasone and remdesivir with the last dose the evening of 11/16. He is on enoxaparin 40 mg every 12 hours with his last dose the morning before transfer. He is on broad-spectrum antibiotic coverage with vancomycin, Pip/Tazo and levofloxacin. He is critically ill but stable enough for transfer and the benefits far outweigh the risks at this point. We did have some difficulty locating an intensive care unit bed that would be able to take him in transfer. Fortunately a bed is available at [facility] in the [facility] area. Patient will be transferred there by air ambulance. - Patient Instructions Diet: NPO Activity: Bedrest - Discharge Plan Home Medications: Home Meds Ascorbic Acid [Vitamin C] 1 tab PO DAILY 05/04/15 [History] Aspirin [Halfprin] 81 mg PO DAILY 05/04/15 [History] Calcium Carbonate/Vitamin D3 [Calcium 600-Vit D3 800 Caplet] 1 tab PO BID 05/04/15 [History] Fluticasone/Salmeterol [Advair Diskus 500-50] 1 puff INH BID 05/04/15 [History] Furosemide 20 mg PO DAILY 05/04/15 [History] Lisinopril 2.5 mg PO DAILY 05/04/15 [History] Loratadine [Claritin] 1 tab PO DAILY 05/04/15 [History] Muse-3 Fatty Acids [Fish Oil] 2 tab PO BID 05/04/15 [History] Sildenafil Citrate [Viagra] 100 mg PO DAILY PRN 05/04/15 [History] Acetaminophen [Tylenol JrYuri Meltaways] 640 mg PO Q6HR tab.dis 05/09/15 [Rx] atorvaSTATin [Lipitor] 10 mg PO DAILY 06/14/15 [History] metFORMIN [Glucophage] 500 mg PO BID 06/14/15 [History] polyethylene glycoL 3350 [MiraLAX] 17 gm PO DAILY PRN 11/16/20 [History] Forms: ED Department Discharge Referrals: Slim Gilliam MD [Primary Care Provider] - - Discharge Summary/Plan Comment DC Time >30 min.: Yes Total # of Minutes for Discharge Time: 60-transfer to acute hospital - Patient Data Vitals - Most Recent: Last Vital Signs Temp 36.6 C 11/17/20 07:49 Pulse 110 H 11/17/20 10:00 Resp 33 H 11/17/20 10:00 BP 105/45 L 11/17/20 10:00 Pulse Ox 87 L 11/17/20 10:00 Weight - Most Recent: 109.4 kg I&O - Last 24 hours: Intake & Output 11/16/20 11/17/20 11/17/20 22:59 06:59 14:59 Intake Total 1000 743 Output Total 200 625 300 Balance 800 118 -300 Lab Results - Last 24 hrs: Laboratory Results - last 24 hr 11/16/20 11/16/20 11/17/20 Range/Units 16:32 20:55 02:21 WBC (4.5-11.0) K/uL RBC (4.30-5.90) M/uL Hgb (12.0-15.0) g/dL Hct (40.0-54.0) % MCV (80-98) fL MCH (27-31) pg MCHC (32-36) % Plt Count (150-400) K/uL Add Manual Diff Neutrophils % (Manual) (36-66) % Band Neutrophils % (5-11) % Lymphocytes % (Manual) (24-44) % Monocytes % (Manual) (2-6) % ESR (0-20) mm/hr D-Dimer, Quantitative (0.0-500.0) ng/mL Puncture Site A-line ABG pH 7.275 L (7.350-7.450) ABG pCO2 45.7 H (35.0-42.0) mmHg ABG pO2 72.4 L (75.0-100.0) mmHg ABG HCO3 20.6 L (22.0-26.0) mmol/L ABG Total CO2 18.6 L (23.0-27.0) mmol/L ABG O2 Saturation 92.4 L (95.0-98.0) % ABG O2 Content 18.4 (15.0-23.0) %vol ABG Base Excess -5.9 mm/L ABG Hemoglobin 14.6 (13.5-18.0) g/dL ABG Oxyhemoglobin 89.8 % ABG Carboxyhemoglobin 1.5 (0.0-1.6) % ABG Methemoglobin 1.3 % Ottoniel Test A-line O2 Delivery Device Nasal cannula Oxygen Flow Rate L Sodium (140-148) mmol/L Potassium (3.6-5.2) mmol/L Chloride (100-108) mmol/L Carbon Dioxide (21-32) mmol/L Anion Gap (5.0-14.0) mmol/L BUN (7-18) mg/dL Creatinine (0.8-1.3) mg/dL Est Cr Clr Drug Dosing mL/min Estimated GFR (MDRD) (>60) Glucose (74-106) mg/dL POC Glucose 321 H 308 H (74-106) mg/dL Calcium (8.5-10.1) mg/dL Total Bilirubin (0.2-1.0) mg/dL AST (15-37) U/L ALT (12-78) U/L Alkaline Phosphatase (46-116) U/L Troponin I (0.000-0.056) ng/mL C-Reactive Protein (0.0-0.3) mg/dL Total Protein (6.4-8.2) g/dL Albumin (3.4-5.0) g/dL Globulin (2.3-3.5) g/dL Albumin/Globulin Ratio (1.2-2.2) Procalcitonin ng/mL 11/17/20 11/17/20 11/17/20 Range/Units 02:37 02:37 02:53 WBC 2.9 L (4.5-11.0) K/uL RBC 4.85 (4.30-5.90) M/uL Hgb 14.0 (12.0-15.0) g/dL Hct 40.1 (40.0-54.0) % MCV 83 (80-98) fL MCH 29 (27-31) pg MCHC 35 (32-36) % Plt Count 100 L (150-400) K/uL Add Manual Diff Yes Neutrophils % (Manual) 41 (36-66) % Band Neutrophils % 32 H (5-11) % Lymphocytes % (Manual) 20 L (24-44) % Monocytes % (Manual) 7 H (2-6) % ESR 49 H (0-20) mm/hr D-Dimer, Quantitative (0.0-500.0) ng/mL Puncture Site ABG pH (7.350-7.450) ABG pCO2 (35.0-42.0) mmHg ABG pO2 (75.0-100.0) mmHg ABG HCO3 (22.0-26.0) mmol/L ABG Total CO2 (23.0-27.0) mmol/L ABG O2 Saturation (95.0-98.0) % ABG O2 Content (15.0-23.0) %vol ABG Base Excess mm/L ABG Hemoglobin (13.5-18.0) g/dL ABG Oxyhemoglobin % ABG Carboxyhemoglobin (0.0-1.6) % ABG Methemoglobin % Ottoniel Test O2 Delivery Device Oxygen Flow Rate L Sodium 129 L (140-148) mmol/L Potassium 4.4 (3.6-5.2) mmol/L Chloride 96 L (100-108) mmol/L Carbon Dioxide 20 L (21-32) mmol/L Anion Gap 17.4 H (5.0-14.0) mmol/L BUN 33 H (7-18) mg/dL Creatinine 1.3 (0.8-1.3) mg/dL Est Cr Clr Drug Dosing 50.44 mL/min Estimated GFR (MDRD) 55 L (>60) Glucose 299 H (74-106) mg/dL POC Glucose (74-106) mg/dL Calcium 8.6 (8.5-10.1) mg/dL Total Bilirubin 0.8 D (0.2-1.0) mg/dL AST 41 H (15-37) U/L ALT 42 (12-78) U/L Alkaline Phosphatase 43 L (46-116) U/L Troponin I < 0.017 (0.000-0.056) ng/mL C-Reactive Protein (0.0-0.3) mg/dL Total Protein 6.6 (6.4-8.2) g/dL Albumin 3.1 L (3.4-5.0) g/dL Globulin 3.5 (2.3-3.5) g/dL Albumin/Globulin Ratio 0.9 L (1.2-2.2) Procalcitonin 107.80 H* ng/mL 11/17/20 11/17/20 11/17/20 Range/Units 08:00 08:00 08:00 WBC (4.5-11.0) K/uL RBC (4.30-5.90) M/uL Hgb (12.0-15.0) g/dL Hct (40.0-54.0) % MCV (80-98) fL MCH (27-31) pg MCHC (32-36) % Plt Count (150-400) K/uL Add Manual Diff Neutrophils % (Manual) (36-66) % Band Neutrophils % (5-11) % Lymphocytes % (Manual) (24-44) % Monocytes % (Manual) (2-6) % ESR (0-20) mm/hr D-Dimer, Quantitative 909.22 H (0.0-500.0) ng/mL Puncture Site A-line ABG pH 7.385 (7.350-7.450) ABG pCO2 32.1 L (35.0-42.0) mmHg ABG pO2 64.5 L (75.0-100.0) mmHg ABG HCO3 18.8 L (22.0-26.0) mmol/L ABG Total CO2 16.6 L (23.0-27.0) mmol/L ABG O2 Saturation 92.7 L (95.0-98.0) % ABG O2 Content 17.7 (15.0-23.0) %vol ABG Base Excess -4.8 mm/L ABG Hemoglobin 14.0 (13.5-18.0) g/dL ABG Oxyhemoglobin 90.0 % ABG Carboxyhemoglobin 1.7 H (0.0-1.6) % ABG Methemoglobin 1.2 % Ottoniel Test A-line O2 Delivery Device Nasal cannula Oxygen Flow Rate L Sodium 129 L (140-148) mmol/L Potassium 3.7 (3.6-5.2) mmol/L Chloride 97 L (100-108) mmol/L Carbon Dioxide 21 (21-32) mmol/L Anion Gap 14.7 H (5.0-14.0) mmol/L BUN 33 H (7-18) mg/dL Creatinine 1.2 (0.8-1.3) mg/dL Est Cr Clr Drug Dosing 54.64 mL/min Estimated GFR (MDRD) > 60 (>60) Glucose 294 H (74-106) mg/dL POC Glucose (74-106) mg/dL Calcium 8.3 L (8.5-10.1) mg/dL Total Bilirubin (0.2-1.0) mg/dL AST (15-37) U/L ALT (12-78) U/L Alkaline Phosphatase (46-116) U/L Troponin I (0.000-0.056) ng/mL C-Reactive Protein (0.0-0.3) mg/dL Total Protein (6.4-8.2) g/dL Albumin (3.4-5.0) g/dL Globulin (2.3-3.5) g/dL Albumin/Globulin Ratio (1.2-2.2) Procalcitonin ng/mL 11/17/20 11/17/20 Range/Units 08:00 09:44 WBC (4.5-11.0) K/uL RBC (4.30-5.90) M/uL Hgb (12.0-15.0) g/dL Hct (40.0-54.0) % MCV (80-98) fL MCH (27-31) pg MCHC (32-36) % Plt Count (150-400) K/uL Add Manual Diff Neutrophils % (Manual) (36-66) % Band Neutrophils % (5-11) % Lymphocytes % (Manual) (24-44) % Monocytes % (Manual) (2-6) % ESR (0-20) mm/hr D-Dimer, Quantitative (0.0-500.0) ng/mL Puncture Site ABG pH (7.350-7.450) ABG pCO2 (35.0-42.0) mmHg ABG pO2 (75.0-100.0) mmHg ABG HCO3 (22.0-26.0) mmol/L ABG Total CO2 (23.0-27.0) mmol/L ABG O2 Saturation (95.0-98.0) % ABG O2 Content (15.0-23.0) %vol ABG Base Excess mm/L ABG Hemoglobin (13.5-18.0) g/dL ABG Oxyhemoglobin % ABG Carboxyhemoglobin (0.0-1.6) % ABG Methemoglobin % Ottoniel Test O2 Delivery Device Oxygen Flow Rate L Sodium (140-148) mmol/L Potassium (3.6-5.2) mmol/L Chloride (100-108) mmol/L Carbon Dioxide (21-32) mmol/L Anion Gap (5.0-14.0) mmol/L BUN (7-18) mg/dL Creatinine (0.8-1.3) mg/dL Est Cr Clr Drug Dosing mL/min Estimated GFR (MDRD) (>60) Glucose (74-106) mg/dL POC Glucose 282 H (74-106) mg/dL Calcium (8.5-10.1) mg/dL Total Bilirubin (0.2-1.0) mg/dL AST (15-37) U/L ALT (12-78) U/L Alkaline Phosphatase (46-116) U/L Troponin I (0.000-0.056) ng/mL C-Reactive Protein 31.99 H (0.0-0.3) mg/dL Total Protein (6.4-8.2) g/dL Albumin (3.4-5.0) g/dL Globulin (2.3-3.5) g/dL Albumin/Globulin Ratio (1.2-2.2) Procalcitonin ng/mL AGUS Results - Last 24 hrs: Microbiology 11/15/20 21:05 Quick Strep Confirmation Culture - Final Throat NO GROUP A STREP ISOLATED REFERENCE RANGE: NEGATIVE Group A Streptococcus Rapid Screen - Final NEGATIVE STREP A SCREEN REFERENCE RANGE: NEGATIVE Med Orders - Current: Current Medications Acetaminophen (Acetaminophen 650 Mg Supp) 650 mg RECTAL Q4H PRN PRN Reason: Fever Albuterol (Albuterol 8 Gm Inhaler) 0 gm INH Q4H PRN PRN Reason: Dyspnea Last Admin: 11/17/20 10:34 Dose: 2 puff Documented by: Dexamethasone (Dexamethasone 4 Mg/Ml Sdv) 6 mg IVPUSH Q24H [facility] Last Admin: 11/16/20 22:59 Dose: 6 mg Documented by: Dextrose (Glucose Gel 15 Gm In 37.5 Gm Tube) 15 gm PO ONETIME PRN PRN Reason: Hypoglycemia Dextrose/Water (50% Dextrose In Water 50 Ml Syringe) 50 ml IV ONETIME PRN PRN Reason: Hypoglycemia Enoxaparin Sodium (Enoxaparin 40 Mg/0.4 Ml Syringe) 40 mg SUBCUT Q12H [facility]OF[facility] Last Admin: 11/17/20 10:06 Dose: 40 mg Documented by: Heparin Sodium (Porcine) (Heparin Sodium 100 Units/Ml 5 Ml Syringe) 500 units FLUSH ASDIRECTED PRN PRN Reason: IV Use Last Admin: 11/17/20 11:23 Dose: 500 units Documented by: Propofol (Diprivan 100 Ml) 100 mls @ 13.532 mls/hr IV TITRATE [facility]OF[facility]; Protocol Last Admin: 11/17/20 09:53 Dose: 60 mcg/kg/min, 40.595 mls/hr Documented by: Diltiazem HCl 100 mg/ Sodium (Chloride) 100 mls @ 5 mls/hr IV TITRATE [facility]OFIA; Protocol Last Titration: 11/17/20 10:02 Dose: 15 mg/hr, 15 mls/hr Documented by: Norepinephrine Bitartrate 8 mg (/ Dextrose/Water) 258 mls @ 3.87 mls/hr IV TITRATE [facility]OFIA; Protocol Last Infusion: 11/17/20 10:02 Dose: 4.65 mcg/min, 9 mls/hr Documented by: Vancomycin HCl 1.75 gm/ Sodium (Chloride) 250 mls @ 166.667 mls/hr IV Q12H [facility] Piperacillin/Tazobactam/ (Dextrose 3.375 gm/ Premix) 50 mls @ 100 mls/hr IV Q6H [facility] Last Admin: 11/17/20 09:56 Dose: 100 mls/hr Documented by: Levofloxacin/Dextrose 750 mg/ (Premix) 150 mls @ 100 mls/hr IV Q24H [facility] Heparin Sodium (Porcine) 5,000 (units/ Sodium Chloride) 501 mls @ 0 mls/hr IV ASDIRECTED [facility]OFIA Insulin Human Lispro (Insulin Lispro 100 Unit/Ml 3 Ml Kwikpen) 0 unit SUBCUT Q6H [facility]; Protocol Last Admin: 11/17/20 09:46 Dose: 6 units Documented by: Lorazepam (Lorazepam 2 Mg/Ml Sdv) 0.5 mg IVPUSH Q2H PRN PRN Reason: Agitation Mometasone Furoate/Formoterol Fumar (Formoterol/Mometasone 200-5 Mcg 8.8 Gm Inhaler) 0 puff IH BIDRT [facility] Last Admin: 11/17/20 07:12 Dose: Not Given Documented by: Ondansetron HCl (Ondansetron 4 Mg/2 Ml Sdv) 4 mg IV Q4H PRN PRN Reason: Nausea/Vomiting Pantoprazole Sodium (Pantoprazole 40 Mg Vial) 40 mg IVPUSH DAILY [facility] Last Admin: 11/17/20 10:01 Dose: 40 mg Documented by: Sodium Chloride (Sodium Chloride 0.9% 10 Ml Syringe) 10 ml FLUSH ASDIRECTED PRN PRN Reason: Keep Vein Open Trolamine Salicylate (Trolamine Salicylate/Aloe Vera 10% Crm 85 Gm Tube) 0 gm TOP Q1H PRN PRN Reason: Pain Last Admin: 11/16/20 20:54 Dose: 1 applic Documented by: Discontinued Medications Acetaminophen (Acetaminophen 325 Mg Tab) 650 mg PO Q4H PRN PRN Reason: Pain (Mild 1-3)/fever Last Admin: 11/16/20 15:53 Dose: 650 mg Documented by: Albuterol (Albuterol 0.083% 2.5 Mg/3 Ml Neb Soln) 2.5 mg NEB Q2H PRN PRN Reason: Wheezing Albuterol/Ipratropium (Albuterol/Ipratropium 3.0-0.5 Mg/3 Ml Neb Soln) 3 ml NEB ONETIME ONE Stop: 11/15/20 20:52 Last Admin: 11/15/20 21:08 Dose: 3 ml Documented by: Aspirin (Aspirin 81 Mg Tab.Ec) 81 mg PO DAILY [facility] Last Admin: 11/16/20 08:23 Dose: 81 mg Documented by: Atorvastatin Calcium (Atorvastatin 10 Mg Tab) 10 mg PO DAILY [facility] Last Admin: 11/16/20 08:23 Dose: 10 mg Documented by: Diltiazem HCl (Diltiazem 100 Mg Advvial) Confirm Administered Dose 100 mg .ROUTE .STK-MED ONE Stop: 11/17/20 02:30 Last Admin: 11/17/20 03:10 Dose: Not Given Documented by: Diltiazem HCl (Diltiazem 25 Mg/5 Ml Sdv) 10 mg IVPUSH ONETIME ONE Stop: 11/17/20 03:08 Last Admin: 11/17/20 04:27 Dose: 10 mg Documented by: Enoxaparin Sodium (Enoxaparin 40 Mg/0.4 Ml Syringe) 40 mg SUBCUT Q12H [facility] Last Admin: 11/16/20 01:07 Dose: 40 mg Documented by: Furosemide (Furosemide 20 Mg Tab) 20 mg PO DAILY [facility] Last Admin: 11/16/20 08:24 Dose: 20 mg Documented by: Furosemide (Furosemide 20 Mg/2 Ml Vial) 20 mg IVPUSH NOW ONE Stop: 11/17/20 01:05 Last Admin: 11/17/20 01:09 Dose: 20 mg Documented by: Furosemide (Furosemide 20 Mg/2 Ml Vial) Confirm Administered Dose 20 mg .ROUTE .STK-MED ONE Stop: 11/17/20 01:07 Last Admin: 11/17/20 01:16 Dose: Not Given Documented by: Furosemide (Furosemide 40 Mg/4 Ml Vial) 40 mg IVPUSH ONETIME ONE Stop: 11/17/20 10:01 Last Admin: 11/17/20 10:04 Dose: 40 mg Documented by: Heparin Sodium (Porcine) (Heparin Sodium 5,000 Units/Ml Vial) Confirm Administered Dose 5,000 units .ROUTE .STK-MED ONE Stop: 11/17/20 01:51 Last Admin: 11/17/20 03:08 Dose: 5,000 units Documented by: Remdesivir 200 mg/ Sodium (Chloride) 250 mls @ 250 mls/hr IV ONETIME ONE Stop: 11/15/20 23:29 Last Admin: 11/15/20 23:58 Dose: 250 mls/hr Documented by: Remdesivir 100 mg/ Sodium (Chloride) 100 mls @ 100 mls/hr IV Q24H [facility] Stop: 11/19/20 23:59 Last Admin: 11/16/20 22:59 Dose: 100 mls/hr Documented by: Propofol (Diprivan 100 Ml) Confirm Administered Dose 100 mls @ as directed .ROUTE .STK-MED ONE Stop: 11/17/20 01:11 Last Admin: 11/17/20 01:23 Dose: Not Given Documented by: Sodium Chloride (Normal Saline) Confirm Administered Dose 100 mls @ as directed .ROUTE .STK-MED ONE Stop: 11/17/20 02:31 Last Admin: 11/17/20 03:09 Dose: Not Given Documented by: Piperacillin Sod/Tazobactam (Sod 3.375 gm/ Sodium Chloride) 50 mls @ 100 mls/hr IV Q6H [facility] Last Admin: 11/17/20 03:30 Dose: 100 mls/hr Documented by: Levofloxacin/Dextrose 750 mg/ (Premix) 150 mls @ 100 mls/hr IV Q24H [facility] Last Admin: 11/17/20 03:59 Dose: 100 mls/hr Documented by: Dextrose/Water (Dextrose 5% In Water) Confirm Administered Dose 250 mls @ as directed .ROUTE .STK-MED ONE Stop: 11/17/20 02:55 Last Admin: 11/17/20 03:09 Dose: Not Given Documented by: Vancomycin HCl 2.5 gm/ Sodium (Chloride) 500 mls @ 250 mls/hr IV ONETIME ONE Stop: 11/17/20 04:59 Last Admin: 11/17/20 05:46 Dose: 250 mls/hr Documented by: Insulin Human Lispro (Insulin Lispro 100 Unit/Ml 3 Ml Kwikpen) 0 unit SUBCUT QIDACANDBED [facility]; Protocol Last Admin: 11/16/20 20:56 Dose: 4 unit Documented by: Insulin Human Lispro (Insulin Lispro 100 Unit/Ml 3 Ml Kwikpen) 0 unit SUBCUT QIDACANDBED [facility]; Protocol Lisinopril (Lisinopril 2.5 Mg Tab) 2.5 mg PO DAILY [facility] Last Admin: 11/16/20 08:25 Dose: 2.5 mg Documented by: Loratadine (Loratadine 10 Mg Tab) 10 mg PO DAILY [facility] Last Admin: 11/16/20 08:23 Dose: 10 mg Documented by: Metformin HCl (Metformin 500 Mg Tab) 500 mg PO BIDMEALS [facility] Last Admin: 11/16/20 19:16 Dose: 500 mg Documented by: Norepinephrine Bitartrate (Norepinephrine 4 Mg/4 Ml Sdv) Confirm Administered Dose 4 mg .ROUTE .STK-MED ONE Stop: 11/17/20 02:55 Last Admin: 11/17/20 03:38 Dose: Not Given Documented by: Polyethylene Glycol (Polyethylene Glycol 3350 Powder 17 Gm Packet) 17 gm PO DAILY PRN PRN Reason: Constipation Vancomycin HCl (Vancomycin 1 Gm Sdv) 1 gm IV .PHARMACY TO DOSE [facility] Stop: 11/17/20 03:01
--- NOTE | 2020-11-17 14:15 | PCM.EKG ---
#1 Interpretation EKG Date: 11/17/20 Time: 03:04 Rhythm: A-Fib Rate (Beats/Min): 140 Clay: RAD-Right Clay Deviation (RBBB) P-Wave: Variable QRS: RBBB ST-T: Depressed (laterally) QT: Normal AR/PQ Interval: n/a Comparison: NA - No Prior EKG
[2020-11-17 14:42] VITALS: BP 92/63; PULSE 125
[2020-11-18] MEDS ORDERED: Levofloxacin/Dextrose 5%-Water 750 MG in Premix Bag 1 BAG IV SCH (04:00)
--- NOTE | 2020-11-18 08:05 | OR ---
DATE OF PROCEDURE: 11/17/2020 SURGEON: Brennan Mc MD PROCEDURE: Central line placement. COMPLICATION: None. CUTTER OUT: None. INDICATION: This is a 65-year-old male who has positive COVID, requiring additional central line access due to the . RISKS: Risks, benefits, alternatives, and limitations including infection, bleeding, and pneumothorax. PROCEDURE IN DETAIL: The patient was placed in supine position. The left subclavian vein was used to access this. This was accessed on the second pass. This was then exchanged for a 35,000th wire. This was then dilated, exchanged for a triple-lumen. Dark red blood was noted from all 3 ports, which was then flushed with heparinized saline. Dressings were applied. This was sutured into place. The patient tolerated the procedure well. Brennan Mc MD /[id number]
== END 2020-11-17 14:00 | DRG 208 ==
LOC: JP.ED 19:07 → JP.2SS 23:30 → JP.MS 11-16 17:51 → JP.ICU 11-17 02:00
PROVIDERS: ADMIT Hospitalist; ATTEND Internal Medicine
PROC: XW033E5 Introduction of Remdesivir Anti-infective into Peripheral Vein, Percutaneous Approach, New Technology Group 5 (ICD-10-PCS; principal; 2020-11-15)
PROC: 5A1935Z Respiratory Ventilation, Less than 24 Consecutive Hours (ICD-10-PCS; 2020-11-15)
PROC: 3E0333Z Introduction of Anti-inflammatory into Peripheral Vein, Percutaneous Approach (ICD-10-PCS; 2020-11-15)
PROC: 0BH17EZ Insertion of Endotracheal Airway into Trachea, Via Natural or Artificial Opening (ICD-10-PCS; 2020-11-17)
PROC: 03HC33Z Insertion of Infusion Device into Left Radial Artery, Percutaneous Approach (ICD-10-PCS; 2020-11-17)
PROC: 02HV33Z Insertion of Infusion Device into Superior Vena Cava, Percutaneous Approach (ICD-10-PCS; 2020-11-17)
DX: U07.1 COVID-19 (principal); J12.82 Pneumonia due to coronavirus disease 2019; J96.01 Acute respiratory failure with hypoxia; C95.90 Leukemia, unspecified not having achieved remission; J44.0 Chronic obstructive pulmonary disease with (acute) lower respiratory infection; D84.9 Immunodeficiency, unspecified; R09.02 Hypoxemia; E87.1 Hypo-osmolality and hyponatremia; Z96.659 Presence of unspecified artificial knee joint; Z92.21 Personal history of antineoplastic chemotherapy; Z85.820 Personal history of malignant melanoma of skin; Z79.84 Long term (current) use of oral hypoglycemic drugs; D69.6 Thrombocytopenia, unspecified; E11.65 Type 2 diabetes mellitus with hyperglycemia; Z79.82 Long term (current) use of aspirin; Z79.899 Other long term (current) drug therapy; Z98.890 Other specified postprocedural states; Z90.49 Acquired absence of other specified parts of digestive tract; Z79.4 Long term (current) use of insulin
CPT/HCPCS: 36415; 71045 ×2; 80053; 85025; 85379; 86140; 87081; 87804 ×2; 87880; U0002; 51702; 80048; 82803; 82947; 84145; 84484; 85651; 93005; 94002; 94003; 94640; 94762; 99285-25; A9270-GY; C9113; J0330; J1100; J1642; J1644; J1650; J1815; J1940; J1956; J2543; J2704; J3370; J3490; J7040; J7050; J7060; J7620-GY

== ENCOUNTER 2021-07-31 08:40 | Inpatient (IN) | payer MEDICARE, BC ==
[2021-07-31] MEDS ORDERED: Polyethylene Glycol 3350 Powder 17 GM Packet PO PRN (15:52)
[2021-07-31] MEDS ORDERED: Methocarbamol 500 MG Tab PO PRN (15:52)
[2021-07-31] MEDS ORDERED: Ondansetron 4 MG/2 ML SDV IV PRN (15:53)
[2021-07-31] MEDS ORDERED: Sodium Chloride 0.9% 10 ML Syringe FLUSH PRN (15:53)
[2021-07-31] MEDS ORDERED: Melatonin 3 MG Tab PO PRN (15:53)
[2021-07-31] MEDS ORDERED: Magnesium Hydroxide 400 MG/5 ML Susp 30 ML Cup PO PRN (15:53)
[2021-07-31] MEDS ORDERED: Ondansetron 4 MG Tab.DIS PO PRN (15:53)
[2021-07-31] MEDS ORDERED: Albuterol 0.083% 2.5 MG/3 ML Neb Soln NEB PRN (15:53)
[2021-07-31] MEDS ORDERED: Acetaminophen 325 MG Tab PO PRN (15:53)
[2021-07-31] MEDS ORDERED: LORazepam 2 MG/ML SDV IVPUSH PRN (15:53)
[2021-07-31] MEDS ORDERED: Potassium Chloride 20 MEQ Tab.ER PO ONE (16:15)
[2021-07-31] MEDS ORDERED: Levofloxacin/Dextrose 5%-Water 750 MG in Premix Bag 1 BAG IV SCH (16:30)
[2021-07-31] MEDS: Albuterol/Ipratropium 3.0-0.5 MG/3 ML Neb Soln NEB SCH ×2 (16:58→20:46)
[2021-07-31 18:20] LABS: CORONAVIRUS COVID-19 NAA NEGATIVE (NEGATIVE)
[2021-07-31] MEDS: Brimonidine 0.2% Ophth Soln 5 ML Bottle EYEBOTH SCH (20:44)
[2021-07-31] MEDS: atorvaSTATin 10 MG Tab PO SCH (20:45)
[2021-07-31] MEDS: Lactobacillus Rhamnosus GG (Probiotic) Cap PO SCH (20:45)
[2021-07-31] MEDS: metFORMIN 500 MG Tab PO SCH (20:45)
[2021-07-31] MEDS: Formoterol/Mometasone 200-5 MCG 8.8 GM Inhaler IH SCH (20:46)
[2021-07-31] MEDS ORDERED: Non-Formulary Medication 1 Each (Fluticasone Propion/Salmeterol [Fluticasone-Salmeterol 25 INH SCH (21:00)
[2021-07-31] MEDS ORDERED: Non-Formulary Medication 1 Each (Brimonidine [Alphagan P 0.1% Ophth Soln] 10 ML Bottle) EYEBOTH SCH (21:00)
[2021-08-01] MEDS ORDERED: Sodium Chloride 0.9% 500 ML IV ONE (00:51)
[2021-08-01] MEDS: Sodium Chloride 0.9% 1,000 ML IV SCH ×2 (01:01→13:21)
[2021-08-01] MEDS: Formoterol/Mometasone 200-5 MCG 8.8 GM Inhaler IH SCH ×2 (07:07→21:47)
[2021-08-01] MEDS: Lisinopril 2.5 MG Tab PO SCH (08:42)
[2021-08-01] MEDS: Lactobacillus Rhamnosus GG (Probiotic) Cap PO SCH ×2 (08:43→21:47)
[2021-08-01] MEDS: metFORMIN 500 MG Tab PO SCH ×2 (08:43→17:24)
[2021-08-01] MEDS: Loratadine 10 MG Tab PO SCH (08:43)
[2021-08-01] MEDS: Brimonidine 0.2% Ophth Soln 5 ML Bottle EYEBOTH SCH ×2 (08:44→21:48)
[2021-08-01] MEDS: Aspirin 81 MG Tab.EC PO SCH (08:44)
[2021-08-01] MEDS: Albuterol/Ipratropium 3.0-0.5 MG/3 ML Neb Soln NEB SCH ×4 (08:45→21:47)
[2021-08-01] MEDS ORDERED: Non-Formulary Medication 1 Each (Loratadine [Claritin] 10 MG Capsule) PO SCH (09:00)
[2021-08-01] MEDS: atorvaSTATin 10 MG Tab PO SCH (21:48)
[2021-08-02] MEDS: Formoterol/Mometasone 200-5 MCG 8.8 GM Inhaler IH SCH (06:59)
[2021-08-02] MEDS: Albuterol/Ipratropium 3.0-0.5 MG/3 ML Neb Soln NEB SCH ×3 (07:00→15:00)
[2021-08-02] MEDS: metFORMIN 500 MG Tab PO SCH (08:57)
[2021-08-02] MEDS: Brimonidine 0.2% Ophth Soln 5 ML Bottle EYEBOTH SCH (08:58)
[2021-08-02] MEDS: Loratadine 10 MG Tab PO SCH (08:58)
[2021-08-02] MEDS: Lactobacillus Rhamnosus GG (Probiotic) Cap PO SCH (08:59)
[2021-08-02] MEDS: Aspirin 81 MG Tab.EC PO SCH (09:02)
[2021-08-02] MEDS: Lisinopril 2.5 MG Tab PO SCH (09:03)
[2021-08-02 10:41] VITALS: BP 120/75; PULSE 73
[2021-08-02] MEDS ORDERED: Levofloxacin 250 MG Tab PO ONE (10:47)
[2021-08-02] MEDS ORDERED: Levofloxacin/Dextrose 5%-Water 750 MG in Premix Bag 1 BAG IV SCH (16:30)
== END 2021-08-02 15:00 | disposition home or self-care (01) | DRG 193 ==
LOC: JP.2SS 08:40 → OBSVTOIN 08-01 08:40
PROVIDERS: ADMIT Internal Medicine; ATTEND Internal Medicine
DX: J18.9 Pneumonia, unspecified organism (principal); J96.01 Acute respiratory failure with hypoxia; N17.9 Acute kidney failure, unspecified; J44.0 Chronic obstructive pulmonary disease with (acute) lower respiratory infection; Z68.30 Body mass index [BMI] 30.0-30.9, adult; R53.1 Weakness; E66.9 Obesity, unspecified; Z85.820 Personal history of malignant melanoma of skin; D84.9 Immunodeficiency, unspecified; Z79.84 Long term (current) use of oral hypoglycemic drugs; E11.9 Type 2 diabetes mellitus without complications; Z20.822 Contact with and (suspected) exposure to COVID-19; Z96.659 Presence of unspecified artificial knee joint; I10 Essential (primary) hypertension; Z86.16 Personal history of COVID-19; Z68.38 Body mass index [BMI] 38.0-38.9, adult; Z79.82 Long term (current) use of aspirin; Z79.899 Other long term (current) drug therapy; Z90.49 Acquired absence of other specified parts of digestive tract
CPT/HCPCS: 0241U; 36415; 80048; 85027; 94640; 96365; 96366; 97161-GP; 99222; 99232; 99238; A9270-GY; G0378; G0379; J1956; J3490; J7030; J7040; J7620

== ENCOUNTER 2022-07-28 19:07 | Emergency (ER) | payer MEDICARE, BC ==
[2022-07-28 19:42] LABS: BASOPHILS ABSOLUTE AUTO 0.03 K/uL (0.00-0.10); BASOPHILS PERCENT AUTO 0.2 % (0.1-1.3); EOSINOPHILS ABSOLUTE AUTO 0.04 K/uL (0.00-0.40); EOSINOPHILS PERCENT AUTO 0.3 % (0.0-5.4); HEMATOCRIT 42.2 % (38.4-49.7); HEMOGLOBIN 14.4 g/dL (12.9-16.9); IMMATURE GRAN ABSOLUTE AUTO 0.08 K/uL (0.00-0.23); IMMATURE GRAN PERCENT AUTO 0.5 % (0.0-0.7); LYMPHOCYTES ABSOLUTE AUTO 1.32 K/uL (0.8-3.3); LYMPHOCYTES PERCENT AUTO 9.1 % (11.4-47.7); MEAN CORPUSCULAR HEMOGLOBIN 28.5 pg (31.6-35.5); MEAN CORPUSCULAR HGB CONC 34.1 g/dL (31.6-35.5); MEAN CORPUSCULAR VOLUME 83.4 fL (81.4-99.0); MONOCYTES ABSOLUTE AUTO 1.23 K/uL (0.20-0.90); MONOCYTES PERCENT AUTO 8.4 % (3.3-12.6); NEUTROPHILS ABSOLUTE AUTO 11.88 K/uL (1.0-7.6); NEUTROPHILS PERCENT AUTO 81.5 % (40.0-78.1); PLATELET COUNT,PLT 160 K/uL (130-375); RED BLOOD CELL COUNT 5.06 M/uL (4.14-5.76); WHITE BLOOD CELL COUNT,WBC 14.6 K/uL (3.2-11.0)
[2022-07-28 19:47] VITALS: BP 139/79; PULSE 108
[2022-07-28 20:05] LABS: C-REACTIVE PROTEIN 8.6 mg/dL (0.0-0.3); CALCIUM 9.4 mg/dL (8.5-10.1); EST CRCL DRUG DOSING (CG) 63.8 mL/min; POTASSIUM,K 4.7 mmol/L (3.6-5.2); TROPONIN I HIGH SENSITIVITY 5.1 pg/mL (<=60.3)
[2022-07-28 20:06] LABS: ANION GAP 13.7 mmol/L (5.0-14.0)
[2022-07-28] MEDS ORDERED: Levofloxacin 250 MG Tab PO ONE (20:10)
== END 2022-07-28 20:48 | disposition home or self-care (01) ==
LOC: JP.ED 19:07
DX: J18.9 Pneumonia, unspecified organism (principal); J44.9 Chronic obstructive pulmonary disease, unspecified; E11.9 Type 2 diabetes mellitus without complications; Z79.899 Other long term (current) drug therapy; Z79.82 Long term (current) use of aspirin; Z79.84 Long term (current) use of oral hypoglycemic drugs
CPT/HCPCS: 36415; 71046; 80048; 84484; 85025; 86140; 99285; A9270-GY; U0002

== ENCOUNTER 2022-08-15 02:26 | Inpatient (IN) | payer MEDICARE, BC ==
[2022-08-15] MEDS ORDERED: cefTRIAXone 1 GM in Sodium Chloride 0.9% 50 ML IV SCH (03:15)
[2022-08-15] MEDS ORDERED: Lactated Ringers 1,000 ML IV SCH (03:15)
[2022-08-15] MEDS ORDERED: Doxycycline 100 MG in Sodium Chloride 0.9% 100 ML IV SCH (03:15)
[2022-08-15] MEDS ORDERED: Ibuprofen 600 MG Tab PO ONE (03:17)
[2022-08-15 03:21] LABS: BASOPHILS ABSOLUTE AUTO 0.03 K/uL (0.00-0.10); BASOPHILS PERCENT AUTO 0.2 % (0.1-1.3); EOSINOPHILS ABSOLUTE AUTO 0.01 K/uL (0.00-0.40); EOSINOPHILS PERCENT AUTO 0.1 % (0.0-5.4); HEMATOCRIT 41.1 % (38.4-49.7); HEMOGLOBIN 13.9 g/dL (12.9-16.9); IMMATURE GRAN ABSOLUTE AUTO 0.08 K/uL (0.00-0.23); IMMATURE GRAN PERCENT AUTO 0.6 % (0.0-0.7); LYMPHOCYTES ABSOLUTE AUTO 0.44 K/uL (0.8-3.3); MEAN CORPUSCULAR HEMOGLOBIN 28.3 pg (31.6-35.5); MEAN CORPUSCULAR HGB CONC 33.8 g/dL (31.6-35.5); MEAN CORPUSCULAR VOLUME 83.7 fL (81.4-99.0); MONOCYTES ABSOLUTE AUTO 0.72 K/uL (0.20-0.90); NEUTROPHILS ABSOLUTE AUTO 13.22 K/uL (1.0-7.6); NEUTROPHILS PERCENT AUTO 91.1 % (40.0-78.1); PLATELET COUNT,PLT 181 K/uL (130-375); RED BLOOD CELL COUNT 4.91 M/uL (4.14-5.76); WHITE BLOOD CELL COUNT,WBC 14.5 K/uL (3.2-11.0)
[2022-08-15 03:40] LABS: ALANINE AMINOTRANSFERASE,ALT 30 U/L (12-78); ALBUMIN 3.7 g/dL (3.4-5.0); ALKALINE PHOSPHATASE 64 U/L (46-116); ASPARTATE AMNIOTRANSFERASE,AST 18 U/L (15-37); BILIRUBIN TOTAL 0.8 mg/dL (0.2-1.0); BLOOD UREA NITROGEN,BUN 29 mg/dL (7-18); C-REACTIVE PROTEIN 12.48 mg/dL (0.0-0.3); CALCIUM 9.3 mg/dL (8.5-10.1); CARBON DIOXIDE,CO2 25 mmol/L (21-32); CHLORIDE,CL 99 mmol/L (100-108); CREATININE 1.1 mg/dL (0.8-1.3); ESTIMATED GFR 73 mL/min (>60); GLUCOSE RANDOM 156 mg/dL (74-106); POTASSIUM,K 4.3 mmol/L (3.6-5.2); PROTEIN TOTAL,TP 7.6 g/dL (6.4-8.2); SODIUM,NA 134 mmol/L (140-148)
[2022-08-15 03:41] LABS: ANION GAP 14.3 mmol/L (5.0-14.0)
[2022-08-15 03:45] LABS: LACTIC ACID 1.5 mmol/L (0.4-2.0)
[2022-08-15] MEDS ORDERED: Lactated Ringers 1,000 ML IV ONE (05:36)
[2022-08-15] MEDS ORDERED: Iopamidol 612 MG/ML 100 ML Bottle IV ONE (05:39)
[2022-08-15] MEDS ORDERED: Sodium Chloride 0.9% 50 ML IV SCH (05:45)
[2022-08-15] MEDS ORDERED: Acetaminophen 325 MG Tab PO PRN (10:29)
[2022-08-15] MEDS ORDERED: Ondansetron 4 MG Tab.DIS PO PRN (10:29)
[2022-08-15] MEDS ORDERED: Magnesium Hydroxide 400 MG/5 ML Susp 30 ML Cup PO PRN (10:29)
[2022-08-15] MEDS ORDERED: Sennosides/Docusate Sodium 50-8.6 MG Tab PO PRN (10:29)
[2022-08-15] MEDS ORDERED: Ondansetron 4 MG/2 ML SDV IV PRN (10:29)
[2022-08-15] MEDS ORDERED: Albuterol 0.083% 2.5 MG/3 ML Neb Soln NEB PRN (10:29)
[2022-08-15] MEDS ORDERED: Polyethylene Glycol 3350 Powder 17 GM Packet PO PRN (10:32)
[2022-08-15] MEDS ORDERED: Methocarbamol 500 MG Tab PO PRN (10:32)
[2022-08-15] MEDS ORDERED: Benzonatate 100 MG Cap PO PRN (10:35)
[2022-08-15] MEDS ORDERED: guaiFENesin 100 MG/5 ML Soln ML (118 ML Bottle) PO PRN (10:35)
[2022-08-15] MEDS: Albuterol/Ipratropium 3.0-0.5 MG/3 ML Neb Soln NEB SCH ×3 (11:25→21:50)
[2022-08-15] MEDS: methylPREDNISolone Sodium Succinate 40 MG/1 ML SDV IVPUSH SCH ×2 (13:04→19:58)
[2022-08-15] MEDS: Enoxaparin 40 MG/0.4 ML Syringe SUBCUT SCH (13:04)
[2022-08-15] MEDS: Insulin Lispro 100 Unit/ML 3 ML KwikPen SUBCUT SCH ×3 (13:04→21:42)
[2022-08-15] MEDS: Doxycycline 100 MG in Sodium Chloride 0.9% 100 ML IV SCH (16:08)
[2022-08-15] MEDS: Diclofenac Sodium 1% Gel 100 GM Tube TOP SCH ×2 (16:08→21:41)
[2022-08-15] MEDS: Melatonin 3 MG Tab PO SCH (21:40)
[2022-08-15] MEDS: Brimonidine 0.2% Ophth Soln 5 ML Bottle EYEBOTH SCH (21:40)
[2022-08-15] MEDS: guaiFENesin 600 MG Tab.ER PO SCH (21:41)
[2022-08-15] MEDS: atorvaSTATin 10 MG Tab PO SCH (21:41)
[2022-08-15] MEDS: Calcium Carbonate/Vitamin D3 1500 MG-400 Units Tab PO SCH (21:41)
[2022-08-15] MEDS: cefTRIAXone 1 GM in Sodium Chloride 0.9% 50 ML IV SCH (21:42)
[2022-08-16] MEDS: methylPREDNISolone Sodium Succinate 40 MG/1 ML SDV IVPUSH SCH ×3 (03:33→20:34)
[2022-08-16] MEDS: Doxycycline 100 MG in Sodium Chloride 0.9% 100 ML IV SCH ×2 (03:34→15:49)
[2022-08-16] MEDS: Diclofenac Sodium 1% Gel 100 GM Tube TOP SCH ×4 (05:35→21:55)
[2022-08-16] MEDS: Albuterol/Ipratropium 3.0-0.5 MG/3 ML Neb Soln NEB SCH ×4 (07:02→20:34)
[2022-08-16] MEDS: Insulin Lispro 100 Unit/ML 3 ML KwikPen SUBCUT SCH ×4 (07:51→21:54)
[2022-08-16] MEDS: Aspirin 81 MG Tab.EC PO SCH (09:19)
[2022-08-16] MEDS: Brimonidine 0.2% Ophth Soln 5 ML Bottle EYEBOTH SCH ×2 (09:19→20:34)
[2022-08-16] MEDS: Furosemide 20 MG Tab PO SCH (09:19)
[2022-08-16] MEDS: Calcium Carbonate/Vitamin D3 1500 MG-400 Units Tab PO SCH ×2 (09:20→20:34)
[2022-08-16] MEDS: Lisinopril 2.5 MG Tab PO SCH (09:20)
[2022-08-16] MEDS: Loratadine 10 MG Tab PO SCH (09:20)
[2022-08-16] MEDS: guaiFENesin 600 MG Tab.ER PO SCH ×2 (09:20→20:35)
[2022-08-16] MEDS: Enoxaparin 40 MG/0.4 ML Syringe SUBCUT SCH (14:31)
[2022-08-16] MEDS: atorvaSTATin 10 MG Tab PO SCH (20:35)
[2022-08-16] MEDS: Melatonin 3 MG Tab PO SCH (20:35)
[2022-08-16] MEDS: cefTRIAXone 1 GM in Sodium Chloride 0.9% 50 ML IV SCH (21:54)
[2022-08-17] MEDS: methylPREDNISolone Sodium Succinate 40 MG/1 ML SDV IVPUSH SCH ×2 (04:15→11:47)
[2022-08-17] MEDS: Doxycycline 100 MG in Sodium Chloride 0.9% 100 ML IV SCH ×2 (04:15→15:36)
[2022-08-17] MEDS: Diclofenac Sodium 1% Gel 100 GM Tube TOP SCH ×5 (05:15→22:28)
[2022-08-17 05:31] LABS: HEMOGLOBIN 12.9 g/dL (12.9-16.9); MEAN CORPUSCULAR HEMOGLOBIN 27.6 pg (31.6-35.5); MEAN CORPUSCULAR HGB CONC 33.1 g/dL (31.6-35.5); MEAN CORPUSCULAR VOLUME 83.3 fL (81.4-99.0); PLATELET COUNT,PLT 143 K/uL (130-375); RED BLOOD CELL COUNT 4.68 M/uL (4.14-5.76); WHITE BLOOD CELL COUNT,WBC 8.3 K/uL (3.2-11.0)
[2022-08-17 05:46] LABS: CALCIUM 9.2 mg/dL (8.5-10.1); CREATININE 0.9 mg/dL (0.8-1.3); EST CRCL DRUG DOSING (CG) 70.89 mL/min; POTASSIUM,K 4.5 mmol/L (3.6-5.2)
[2022-08-17 06:03] LABS: ANION GAP 13.5 mmol/L (5.0-14.0)
[2022-08-17 06:05] LABS: BAND ABSOLUTE MAN 1.08 K/uL; BAND PERCENT MAN 13 % (5-11); LYMPHOCYTES ABSOLUTE MAN 0.25 K/uL (0.8-3.3); LYMPHOCYTES PERCENT MAN 3 % (24-44); MONOCYTES ABSOLUTE MAN 0.33 K/uL (0.20-0.90); MONOCYTES PERCENT MAN 4 % (2-6); NEUTROPHILS ABSOLUTE MAN 6.64 K/uL (1.0-7.6); SEG NEUTROPHILS PERCENT MAN 80 % (36-66)
[2022-08-17] MEDS: Albuterol/Ipratropium 3.0-0.5 MG/3 ML Neb Soln NEB SCH ×4 (06:59→20:31)
[2022-08-17] MEDS: Insulin Lispro 100 Unit/ML 3 ML KwikPen SUBCUT SCH ×4 (07:31→20:56)
[2022-08-17] MEDS: Brimonidine 0.2% Ophth Soln 5 ML Bottle EYEBOTH SCH ×2 (08:37→20:31)
[2022-08-17] MEDS: Calcium Carbonate/Vitamin D3 1500 MG-400 Units Tab PO SCH ×2 (08:37→20:33)
[2022-08-17] MEDS: Loratadine 10 MG Tab PO SCH (08:37)
[2022-08-17] MEDS: Aspirin 81 MG Tab.EC PO SCH (08:37)
[2022-08-17] MEDS: Lisinopril 2.5 MG Tab PO SCH (08:38)
[2022-08-17] MEDS: Furosemide 20 MG Tab PO SCH (08:38)
[2022-08-17] MEDS: guaiFENesin 600 MG Tab.ER PO SCH ×2 (08:38→20:34)
[2022-08-17] MEDS: Enoxaparin 40 MG/0.4 ML Syringe SUBCUT SCH (13:37)
[2022-08-17] MEDS: oxyCODONE 5 MG Tab PO PRN ×2 (19:22→23:38)
[2022-08-17] MEDS ORDERED: methylPREDNISolone Sodium Succinate 125 MG/2 ML SDV IV SCH (20:00)
[2022-08-17] MEDS: Doxycycline 100 MG Cap PO SCH (20:31)
[2022-08-17] MEDS: Melatonin 3 MG Tab PO SCH (20:32)
[2022-08-17] MEDS: atorvaSTATin 10 MG Tab PO SCH (20:33)
[2022-08-18] MEDS: Diclofenac Sodium 1% Gel 100 GM Tube TOP SCH ×2 (05:53→11:59)
[2022-08-18] MEDS: Albuterol/Ipratropium 3.0-0.5 MG/3 ML Neb Soln NEB SCH ×2 (07:14→10:50)
[2022-08-18] MEDS ORDERED: predniSONE 20 MG Tab PO SCH (08:00)
[2022-08-18] MEDS: Insulin Lispro 100 Unit/ML 3 ML KwikPen SUBCUT SCH ×2 (08:19→11:57)
[2022-08-18] MEDS: Lisinopril 2.5 MG Tab PO SCH (08:25)
[2022-08-18] MEDS: Calcium Carbonate/Vitamin D3 1500 MG-400 Units Tab PO SCH (08:26)
[2022-08-18] MEDS: Furosemide 20 MG Tab PO SCH (08:26)
[2022-08-18] MEDS: guaiFENesin 600 MG Tab.ER PO SCH (08:26)
[2022-08-18] MEDS: Aspirin 81 MG Tab.EC PO SCH (08:26)
[2022-08-18] MEDS: Loratadine 10 MG Tab PO SCH (08:26)
[2022-08-18] MEDS: Brimonidine 0.2% Ophth Soln 5 ML Bottle EYEBOTH SCH (08:27)
[2022-08-18] MEDS: Doxycycline 100 MG Cap PO SCH (08:39)
[2022-08-18] MEDS ORDERED: Cefdinir 300 MG Cap PO SCH (09:00)
[2022-08-18 10:51] VITALS: PULSE 80
[2022-08-18 11:33] VITALS: BP 129/66
== END 2022-08-18 13:57 | disposition home or self-care (01) | DRG 871 ==
LOC: JP.ED 02:26 → JP.MS 10:29
PROVIDERS: ADMIT Internal Medicine; ATTEND Hospitalist
DX: A41.9 Sepsis, unspecified organism (principal); J18.9 Pneumonia, unspecified organism; R09.02 Hypoxemia; J96.01 Acute respiratory failure with hypoxia; J44.9 Chronic obstructive pulmonary disease, unspecified; J44.1 Chronic obstructive pulmonary disease with (acute) exacerbation; J44.0 Chronic obstructive pulmonary disease with (acute) lower respiratory infection; D84.9 Immunodeficiency, unspecified; I10 Essential (primary) hypertension; F17.210 Nicotine dependence, cigarettes, uncomplicated; F17.200 Nicotine dependence, unspecified, uncomplicated; E11.9 Type 2 diabetes mellitus without complications; Z96.659 Presence of unspecified artificial knee joint; E78.5 Hyperlipidemia, unspecified; Z20.822 Contact with and (suspected) exposure to COVID-19; E66.9 Obesity, unspecified; Z86.16 Personal history of COVID-19; Z79.82 Long term (current) use of aspirin; Z79.899 Other long term (current) drug therapy; Z79.84 Long term (current) use of oral hypoglycemic drugs; Z98.890 Other specified postprocedural states; Z91.018 Allergy to other foods; Z95.0 Presence of cardiac pacemaker; Z86.73 Personal history of transient ischemic attack (TIA), and cerebral infarction without residual deficits; Z90.89 Acquired absence of other organs; Z90.49 Acquired absence of other specified parts of digestive tract; Z68.39 Body mass index [BMI] 39.0-39.9, adult
CPT/HCPCS: 36415; 71045; 71045-26; 71260; 80048; 80053; 82947; 83605; 83735; 83880; 84145; 84484; 85025; 86140; 87040; 87070; 87205; 93005; 93010; 94640; 96365; 96368; 99222; 99232; 99238; 99285; 99285-25; A9270-GY; J0696; J1650; J1815; J2920; J3490; J7120; J7512; J7620; Q9967; U0002

== ENCOUNTER 2023-01-27 23:03 | Emergency (ER) | payer MEDICARE, BC ==
[2023-01-27 23:13] VITALS: BP 141/86; PULSE 88
== END 2023-01-27 23:59 | disposition home or self-care (01) ==
LOC: JP.ED 23:03
DX: T16.1XXA Foreign body in right ear, initial encounter (principal); E11.9 Type 2 diabetes mellitus without complications; J44.9 Chronic obstructive pulmonary disease, unspecified; Z91.013 Allergy to seafood; Z79.82 Long term (current) use of aspirin; Z79.899 Other long term (current) drug therapy; Z79.84 Long term (current) use of oral hypoglycemic drugs; Z86.16 Personal history of COVID-19; Z87.891 Personal history of nicotine dependence
CPT/HCPCS: 69200; 99282

== ENCOUNTER 2023-02-26 20:44 | Inpatient (IN) | payer MEDICARE, BC ==
[2023-02-26] MEDS ORDERED: Albuterol/Ipratropium 3.0-0.5 MG/3 ML Neb Soln NEB ONE ×2 (21:29→22:49)
[2023-02-26 21:37] LABS: BASOPHILS PERCENT AUTO 0.1 % (0.1-1.3); EOSINOPHILS ABSOLUTE AUTO 0.06 K/uL (0.00-0.40); EOSINOPHILS PERCENT AUTO 0.4 % (0.0-5.4); HEMATOCRIT 39.8 % (38.4-49.7); HEMOGLOBIN 13.8 g/dL (12.9-16.9); IMMATURE GRAN ABSOLUTE AUTO 0.06 K/uL (0.00-0.23); IMMATURE GRAN PERCENT AUTO 0.4 % (0.0-0.7); LYMPHOCYTES ABSOLUTE AUTO 0.67 K/uL (0.8-3.3); LYMPHOCYTES PERCENT AUTO 4.7 % (11.4-47.7); MEAN CORPUSCULAR HGB CONC 34.7 g/dL (31.6-35.5); MEAN CORPUSCULAR VOLUME 83.6 fL (81.4-99.0); MONOCYTES ABSOLUTE AUTO 0.94 K/uL (0.20-0.90); MONOCYTES PERCENT AUTO 6.5 % (3.3-12.6); NEUTROPHILS ABSOLUTE AUTO 12.61 K/uL (1.0-7.6); NEUTROPHILS PERCENT AUTO 87.9 % (40.0-78.1); PLATELET COUNT,PLT 130 K/uL (130-375); RED BLOOD CELL COUNT 4.76 M/uL (4.14-5.76); WHITE BLOOD CELL COUNT,WBC 14.4 K/uL (3.2-11.0)
[2023-02-26 21:38] LABS: BASOPHILS ABSOLUTE AUTO 0.02 K/uL (0.00-0.10)
[2023-02-26 21:55] LABS: C-REACTIVE PROTEIN 0.89 mg/dL (<0.50); CALCIUM 9.1 mg/dL (8.5-10.1); CREATININE 1.3 mg/dL (0.8-1.3); EST CRCL DRUG DOSING (CG) 49.08 mL/min; POTASSIUM,K 4.9 mmol/L (3.6-5.2)
[2023-02-26 21:56] LABS: ANION GAP 11.9 mmol/L (5.0-14.0)
[2023-02-26] MEDS ORDERED: Dexamethasone 4 MG/ML SDV IVPUSH ONE (22:21)
[2023-02-26] MEDS ORDERED: cefTRIAXone 2 GM in Sodium Chloride 0.9% 50 ML IV ONE (22:30)
[2023-02-26] MEDS ORDERED: Azithromycin 250 MG Tab PO ONE (22:32)
[2023-02-26] MEDS ORDERED: Sodium Chloride 0.9% 1,000 ML IV ONE (23:55)
[2023-02-27] MEDS ORDERED: Sodium Chloride 0.9% 1,000 ML IV ONE (01:11)
[2023-02-27] MEDS ORDERED: guaiFENesin/Dextromethorphan 100-10 MG/5 ML Soln 10 ML Cup PO PRN (02:21)
[2023-02-27] MEDS ORDERED: Albuterol 6.7 GM Inhaler INH PRN (02:21)
[2023-02-27] MEDS ORDERED: Sodium Chloride 0.9% 1,000 ML IV SCH (02:21)
[2023-02-27] MEDS ORDERED: Ondansetron 4 MG Tab.DIS PO PRN (02:21)
[2023-02-27] MEDS ORDERED: Methocarbamol 500 MG Tab PO PRN (02:21)
[2023-02-27] MEDS ORDERED: Benzonatate 100 MG Cap PO PRN (02:21)
[2023-02-27] MEDS ORDERED: Ondansetron 4 MG/2 ML SDV IV PRN (02:21)
[2023-02-27] MEDS ORDERED: Magnesium Hydroxide 400 MG/5 ML Susp 30 ML Cup PO PRN (02:21)
[2023-02-27] MEDS ORDERED: Polyethylene Glycol 3350 Powder 17 GM Packet PO PRN (02:21)
[2023-02-27] MEDS ORDERED: Sennosides/Docusate Sodium 50-8.6 MG Tab PO PRN (02:21)
[2023-02-27] MEDS ORDERED: Acetaminophen 325 MG Tab PO PRN (02:21)
[2023-02-27] MEDS ORDERED: Levofloxacin/Dextrose 5%-Water 750 MG in Premix Bag 1 BAG IV SCH ×2 (02:45→03:00)
[2023-02-27 02:49] LABS: CORONAVIRUS COVID-19 NAA NEGATIVE (NEGATIVE); INFLUENZA A NAA NEGATIVE (NEGATIVE); INFLUENZA B NAA NEGATIVE (NEGATIVE); RESPIRATORY SYNCYTIAL VIR NAA NEGATIVE (NEGATIVE)
[2023-02-27 05:37] VITALS: BP 140/63
[2023-02-27] MEDS: Albuterol/Ipratropium 3.0-0.5 MG/3 ML Neb Soln NEB SCH ×2 (07:16→11:02)
[2023-02-27] MEDS ORDERED: metFORMIN 500 MG Tab PO SCH (07:30)
[2023-02-27] MEDS ORDERED: predniSONE 20 MG Tab PO SCH (08:00)
[2023-02-27] MEDS ORDERED: Enoxaparin 40 MG/0.4 ML Syringe SUBCUT SCH (08:00)
[2023-02-27] MEDS ORDERED: Lactobacillus Rhamnosus GG (Probiotic) Cap PO SCH (09:00)
[2023-02-27] MEDS ORDERED: Aspirin 81 MG Tab.EC PO SCH (09:00)
[2023-02-27] MEDS ORDERED: Brimonidine 0.2% Ophth Soln 5 ML Bottle EYEBOTH SCH (09:00)
[2023-02-27] MEDS ORDERED: Loratadine 10 MG Tab PO SCH (09:00)
[2023-02-27] MEDS ORDERED: FLU (Fluad Quad) 2023-24(65UP)/MF59C/PF 60 MCG/0.5 ML Syringe IM ONE (10:00)
[2023-02-27 13:00] VITALS: PULSE 84
[2023-02-27] MEDS ORDERED: atorvaSTATin 10 MG Tab PO SCH (21:00)
[2023-02-27] MEDS ORDERED: cefTRIAXone 2 GM in Sodium Chloride 0.9% 50 ML IV SCH (22:00)
== END 2023-02-27 14:09 | disposition home or self-care (01) | DRG 871 ==
LOC: JP.ED 20:44 → JP.MS 02-27 02:09
PROVIDERS: ADMIT Internal Medicine; ATTEND Internal Medicine
DX: A41.9 Sepsis, unspecified organism (principal); J18.9 Pneumonia, unspecified organism; J44.9 Chronic obstructive pulmonary disease, unspecified; J96.01 Acute respiratory failure with hypoxia; J44.0 Chronic obstructive pulmonary disease with (acute) lower respiratory infection; Z91.013 Allergy to seafood; E11.9 Type 2 diabetes mellitus without complications; Z96.659 Presence of unspecified artificial knee joint; E66.9 Obesity, unspecified; Z11.52 Encounter for screening for COVID-19; Z20.822 Contact with and (suspected) exposure to COVID-19; Z99.89 Dependence on other enabling machines and devices; Z99.81 Dependence on supplemental oxygen; Z79.82 Long term (current) use of aspirin; Z79.84 Long term (current) use of oral hypoglycemic drugs; Z79.899 Other long term (current) drug therapy; Z90.49 Acquired absence of other specified parts of digestive tract; Z86.16 Personal history of COVID-19; Z98.890 Other specified postprocedural states; Z87.891 Personal history of nicotine dependence; Z95.0 Presence of cardiac pacemaker; Z68.39 Body mass index [BMI] 39.0-39.9, adult; Z86.73 Personal history of transient ischemic attack (TIA), and cerebral infarction without residual deficits; Z90.89 Acquired absence of other organs
CPT/HCPCS: 0241U; 36415; 71045; 80048; 83605; 85025; 86140; 87040; 87070; 87077; 87205; 90694; 94640; A9270-GY; J0696; J1100; J1650; J1956; J3490; J7030; J7512; J7620

== ENCOUNTER 2023-04-17 21:06 | Inpatient (IN) | payer MEDICARE, BC ==
[2023-04-17 22:33] LABS: CORONAVIRUS COVID-19 NAA NEGATIVE (NEGATIVE); INFLUENZA A NAA NEGATIVE (NEGATIVE); INFLUENZA B NAA NEGATIVE (NEGATIVE); RESPIRATORY SYNCYTIAL VIR NAA NEGATIVE (NEGATIVE)
[2023-04-17 22:36] LABS: BASOPHILS ABSOLUTE AUTO 0.04 K/uL (0.00-0.10); BASOPHILS PERCENT AUTO 0.3 % (0.1-1.3); EOSINOPHILS ABSOLUTE AUTO 0.06 K/uL (0.00-0.40); EOSINOPHILS PERCENT AUTO 0.4 % (0.0-5.4); HEMATOCRIT 40.4 % (38.4-49.7); HEMOGLOBIN 13.8 g/dL (12.9-16.9); IMMATURE GRAN ABSOLUTE AUTO 0.06 K/uL (0.00-0.23); IMMATURE GRAN PERCENT AUTO 0.4 % (0.0-0.7); LYMPHOCYTES ABSOLUTE AUTO 0.75 K/uL (0.8-3.3); LYMPHOCYTES PERCENT AUTO 4.9 % (11.4-47.7); MEAN CORPUSCULAR HEMOGLOBIN 28.6 pg (31.6-35.5); MEAN CORPUSCULAR HGB CONC 34.2 g/dL (31.6-35.5); MEAN CORPUSCULAR VOLUME 83.8 fL (81.4-99.0); MONOCYTES ABSOLUTE AUTO 0.93 K/uL (0.20-0.90); MONOCYTES PERCENT AUTO 6.1 % (3.3-12.6); NEUTROPHILS ABSOLUTE AUTO 13.45 K/uL (1.0-7.6); NEUTROPHILS PERCENT AUTO 87.9 % (40.0-78.1); PLATELET COUNT,PLT 150 K/uL (130-375); RED BLOOD CELL COUNT 4.82 M/uL (4.14-5.76); WHITE BLOOD CELL COUNT,WBC 15.3 K/uL (3.2-11.0)
[2023-04-17] MEDS: Albuterol/Ipratropium 3.0-0.5 MG/3 ML Neb Soln NEB ONE (22:38)
[2023-04-17 23:04] LABS: ALANINE AMINOTRANSFERASE,ALT 29 U/L (12-78); ALBUMIN 3.7 g/dL (3.4-5.0); ALKALINE PHOSPHATASE 55 U/L (46-116); ASPARTATE AMNIOTRANSFERASE,AST 14 U/L (15-37); BILIRUBIN TOTAL 0.6 mg/dL (0.2-1.0); BLOOD UREA NITROGEN,BUN 24 mg/dL (7-18); CALCIUM 8.3 mg/dL (8.5-10.1); CARBON DIOXIDE,CO2 24 mmol/L (21-32); CHLORIDE,CL 100 mmol/L (100-108); ESTIMATED GFR 82 mL/min (>60); GLUCOSE RANDOM 183 mg/dL (74-106); PROTEIN TOTAL,TP 7.5 g/dL (6.4-8.2); SODIUM,NA 135 mmol/L (140-148)
[2023-04-17] MEDS: cefTRIAXone 1 GM in Sodium Chloride 0.9% 50 ML IV ONE (23:10)
[2023-04-18] MEDS: Acetaminophen 1,000 MG in Premix Bag 1 BAG IV ONE
[2023-04-18] MEDS: Sodium Chloride 0.9% 1,000 ML IV SCH ×3 (00:19→06:08)
[2023-04-18] MEDS: Azithromycin 1,000 MG in Sodium Chloride 0.9% 500 ML IV ONE (00:29)
[2023-04-18] MEDS ORDERED: Vancomycin 1 GM SDV IV SCH (01:00)
[2023-04-18] MEDS: Vancomycin 2 GM in Sodium Chloride 0.9% 500 ML IV ONE (01:20)
[2023-04-18] MEDS ORDERED: Albuterol 0.083% 2.5 MG/3 ML Neb Soln NEB PRN (02:17)
[2023-04-18] MEDS ORDERED: Ondansetron 4 MG/2 ML SDV IV PRN (02:17)
[2023-04-18] MEDS ORDERED: Codeine/guaiFENesin 10-100 MG/5 ML Syrup 5 ML Cup PO PRN (02:17)
[2023-04-18] MEDS ORDERED: Methocarbamol 500 MG Tab PO PRN (02:17)
[2023-04-18] MEDS ORDERED: Morphine 2 MG/ML SYRINGE IVPUSH PRN (02:17)
[2023-04-18] MEDS ORDERED: Naloxone 0.4 MG/ML SDV IVPUSH PRN (02:17)
[2023-04-18] MEDS ORDERED: Polyethylene Glycol 3350 Powder 17 GM Packet PO PRN (02:17)
[2023-04-18] MEDS ORDERED: oxyCODONE 5 MG Tab PO PRN (02:17)
[2023-04-18] MEDS ORDERED: Sodium Chloride 0.9% 1,000 ML IV SCH (02:17)
[2023-04-18] MEDS ORDERED: Docusate Sodium 100 MG Cap PO PRN (02:17)
[2023-04-18] MEDS ORDERED: Bisacodyl 5 MG Tab PO PRN (02:17)
[2023-04-18] MEDS ORDERED: Ondansetron 4 MG Tab.DIS PO PRN (02:17)
[2023-04-18] MEDS: Albuterol/Ipratropium 3.0-0.5 MG/3 ML Neb Soln NEB SCH ×2 (02:34→21:16)
[2023-04-18] MEDS: methylPREDNISolone Sodium Succinate 125 MG/2 ML SDV IM ONE (02:51)
[2023-04-18] MEDS: methylPREDNISolone Sodium Succinate 125 MG/2 ML SDV IVPUSH ONE (02:51)
[2023-04-18 04:25] LABS: APPEARANCE,URINE CLEAR (CLEAR); BILIRUBIN,URINE NEGATIVE (NEGATIVE); COLOR,URINE YELLOW (YELLOW); GLUCOSE,URINE NEGATIVE (NEGATIVE); KETONES,URINE NEGATIVE (NEGATIVE); LEUKOCYTE ESTERASE,URINE NEGATIVE (NEGATIVE); NITRITE,URINE NEGATIVE (NEGATIVE); OCCULT BLOOD,URINE NEGATIVE (NEGATIVE); PROTEIN,URINE NEGATIVE (NEGATIVE); UROBILINOGEN,URINE 0.2 EU/dL (0.2-1.0)
[2023-04-18 04:29] LABS: AMORPHOUS SEDIMENT,URINE NOT SEEN; BACTERIA,URINE RARE; EPITHELIAL CELLS,URINE RARE; MUCUS,URINE NOT SEEN; RBC,URINE 0-5 (0-5); WBC,URINE 0-5 (0-5)
[2023-04-18 06:08] LABS: BASOPHILS ABSOLUTE AUTO 0.04 K/uL (0.00-0.10); BASOPHILS PERCENT AUTO 0.3 % (0.1-1.3); EOSINOPHILS ABSOLUTE AUTO 0.03 K/uL (0.00-0.40); EOSINOPHILS PERCENT AUTO 0.2 % (0.0-5.4); HEMATOCRIT 38.1 % (38.4-49.7); HEMOGLOBIN 12.8 g/dL (12.9-16.9); IMMATURE GRAN ABSOLUTE AUTO 0.08 K/uL (0.00-0.23); IMMATURE GRAN PERCENT AUTO 0.5 % (0.0-0.7); LYMPHOCYTES ABSOLUTE AUTO 0.79 K/uL (0.8-3.3); MEAN CORPUSCULAR HEMOGLOBIN 28.7 pg (31.6-35.5); MEAN CORPUSCULAR HGB CONC 33.6 g/dL (31.6-35.5); MEAN CORPUSCULAR VOLUME 85.4 fL (81.4-99.0); MONOCYTES ABSOLUTE AUTO 0.32 K/uL (0.20-0.90); NEUTROPHILS ABSOLUTE AUTO 14.66 K/uL (1.0-7.6); PLATELET COUNT,PLT 142 K/uL (130-375); RED BLOOD CELL COUNT 4.46 M/uL (4.14-5.76); WHITE BLOOD CELL COUNT,WBC 15.9 K/uL (3.2-11.0)
[2023-04-18] MEDS: Acetaminophen 1,000 MG in Premix Bag 1 BAG IV SCH ×2 (06:09→06:42)
[2023-04-18 06:23] LABS: CALCIUM 7.8 mg/dL (8.5-10.1); EST CRCL DRUG DOSING (CG) 63.8 mL/min; POTASSIUM,K 4.8 mmol/L (3.6-5.2)
[2023-04-18 06:41] LABS: ANION GAP 12.8 mmol/L (5.0-14.0)
[2023-04-18] MEDS: Insulin Lispro 100 Unit/ML 3 ML KwikPen SUBCUT SCH (08:49)
[2023-04-18] MEDS: Loratadine 10 MG Tab PO SCH (08:54)
[2023-04-18] MEDS: Lisinopril 2.5 MG Tab PO SCH (08:54)
[2023-04-18] MEDS: Calcium Carbonate/Vitamin D3 1500 MG-400 Units Tab PO SCH (08:54)
[2023-04-18] MEDS: methylPREDNISolone Sodium Succinate 40 MG/1 ML SDV IVPUSH SCH (08:57)
[2023-04-18] MEDS: Enoxaparin 40 MG/0.4 ML Syringe SUBCUT SCH (08:59)
[2023-04-18] MEDS ORDERED: Non-Formulary Medication 1 Each (Brimonidine [Alphagan P 0.1% Ophth Soln] 10 ML Bottle) EYEBOTH SCH (09:00)
[2023-04-18] MEDS: Pantoprazole 40 MG Vial IV SCH (09:00)
[2023-04-18] MEDS: Brimonidine 0.2% Ophth Soln 5 ML Bottle EYEBOTH SCH (09:09)
[2023-04-18] MEDS: Furosemide 20 MG Tab PO SCH (11:32)
[2023-04-18] MEDS: metroNIDAZOLE/Normal Saline 500 MG in Premix Bag 1 BAG IV SCH (12:27)
[2023-04-18] MEDS ORDERED: Acetaminophen 500 MG Tab PO PRN (18:00)
[2023-04-18] MEDS ORDERED: cefTRIAXone 2 GM in Sodium Chloride 0.9% 50 ML IV SCH (21:00)
[2023-04-18] MEDS: Brimonidine 0.2% Ophth Soln 5 ML Bottle EYELF SCH (21:12)
[2023-04-18] MEDS: atorvaSTATin 10 MG Tab PO SCH (21:13)
[2023-04-18] MEDS: cefTRIAXone 2 GM in Sodium Chloride 0.9% 50 ML IV SCH (21:13)
[2023-04-19 04:41] LABS: BASOPHILS PERCENT AUTO 0.1 % (0.1-1.3); HEMATOCRIT 35.3 % (38.4-49.7); HEMOGLOBIN 11.9 g/dL (12.9-16.9); IMMATURE GRAN ABSOLUTE AUTO 0.05 K/uL (0.00-0.23); IMMATURE GRAN PERCENT AUTO 0.4 % (0.0-0.7); LYMPHOCYTES ABSOLUTE AUTO 0.71 K/uL (0.8-3.3); LYMPHOCYTES PERCENT AUTO 6.2 % (11.4-47.7); MEAN CORPUSCULAR HEMOGLOBIN 28.5 pg (31.6-35.5); MEAN CORPUSCULAR HGB CONC 33.7 g/dL (31.6-35.5); MEAN CORPUSCULAR VOLUME 84.7 fL (81.4-99.0); MONOCYTES ABSOLUTE AUTO 0.35 K/uL (0.20-0.90); NEUTROPHILS ABSOLUTE AUTO 10.42 K/uL (1.0-7.6); NEUTROPHILS PERCENT AUTO 90.3 % (40.0-78.1); PLATELET COUNT,PLT 132 K/uL (130-375); RED BLOOD CELL COUNT 4.17 M/uL (4.14-5.76); WHITE BLOOD CELL COUNT,WBC 11.5 K/uL (3.2-11.0)
[2023-04-19 05:03] LABS: CREATININE 0.8 mg/dL (0.8-1.3); EST CRCL DRUG DOSING (CG) 79.75 mL/min; POTASSIUM,K 4.2 mmol/L (3.6-5.2)
[2023-04-19 05:22] LABS: BASOPHILS ABSOLUTE AUTO 0.01 K/uL (0.00-0.10)
[2023-04-19 05:24] LABS: ANION GAP 11.2 mmol/L (5.0-14.0)
[2023-04-20 05:52] LABS: BASOPHILS PERCENT AUTO 0.1 % (0.1-1.3); HEMATOCRIT 37.5 % (38.4-49.7); HEMOGLOBIN 12.6 g/dL (12.9-16.9); IMMATURE GRAN ABSOLUTE AUTO 0.09 K/uL (0.00-0.23); IMMATURE GRAN PERCENT AUTO 0.9 % (0.0-0.7); LYMPHOCYTES ABSOLUTE AUTO 0.77 K/uL (0.8-3.3); LYMPHOCYTES PERCENT AUTO 7.5 % (11.4-47.7); MEAN CORPUSCULAR HEMOGLOBIN 28.5 pg (31.6-35.5); MEAN CORPUSCULAR HGB CONC 33.6 g/dL (31.6-35.5); MEAN CORPUSCULAR VOLUME 84.8 fL (81.4-99.0); MONOCYTES ABSOLUTE AUTO 0.42 K/uL (0.20-0.90); MONOCYTES PERCENT AUTO 4.1 % (3.3-12.6); NEUTROPHILS ABSOLUTE AUTO 9.04 K/uL (1.0-7.6); NEUTROPHILS PERCENT AUTO 87.4 % (40.0-78.1); PLATELET COUNT,PLT 156 K/uL (130-375); RED BLOOD CELL COUNT 4.42 M/uL (4.14-5.76); WHITE BLOOD CELL COUNT,WBC 10.3 K/uL (3.2-11.0)
[2023-04-20 05:58] LABS: BASOPHILS ABSOLUTE AUTO 0.01 K/uL (0.00-0.10)
[2023-04-20 06:07] LABS: CALCIUM 8.7 mg/dL (8.5-10.1); CREATININE 0.9 mg/dL (0.8-1.3); EST CRCL DRUG DOSING (CG) 70.89 mL/min; POTASSIUM,K 4.2 mmol/L (3.6-5.2)
[2023-04-20 06:22] LABS: ANION GAP 15.2 mmol/L (5.0-14.0)
[2023-04-20] MEDS: Pantoprazole 40 MG Tab.CR PO SCH (07:46)
[2023-04-20 11:20] VITALS: BP 138/67; PULSE 71
== END 2023-04-20 14:00 | disposition home or self-care (01) | DRG 871 ==
LOC: JP.ED 21:06 → JP.ICU 23:49
PROVIDERS: ADMIT Hospitalist; ATTEND Hospitalist
DX: A41.9 Sepsis, unspecified organism (principal); R09.02 Hypoxemia; R50.9 Fever, unspecified; J44.9 Chronic obstructive pulmonary disease, unspecified; J18.9 Pneumonia, unspecified organism; J96.01 Acute respiratory failure with hypoxia; J69.0 Pneumonitis due to inhalation of food and vomit; J44.0 Chronic obstructive pulmonary disease with (acute) lower respiratory infection; E11.9 Type 2 diabetes mellitus without complications; H91.91 Unspecified hearing loss, right ear; Z91.018 Allergy to other foods; Z96.659 Presence of unspecified artificial knee joint; I10 Essential (primary) hypertension; Z91.013 Allergy to seafood; Z79.82 Long term (current) use of aspirin; Z79.899 Other long term (current) drug therapy; Z79.84 Long term (current) use of oral hypoglycemic drugs; Z79.51 Long term (current) use of inhaled steroids; Z95.0 Presence of cardiac pacemaker; Z86.73 Personal history of transient ischemic attack (TIA), and cerebral infarction without residual deficits; Z85.79 Personal history of other malignant neoplasms of lymphoid, hematopoietic and related tissues; Z83.3 Family history of diabetes mellitus; Z86.16 Personal history of COVID-19; Z90.89 Acquired absence of other organs; Z90.49 Acquired absence of other specified parts of digestive tract; Z98.890 Other specified postprocedural states
CPT/HCPCS: 0241U; 36415; 71046; 80048; 80053; 80202; 81001; 82150; 82947; 83605; 84145; 85025; 86140; 87040; 87070; 87205; 92610; 94640; 94667; 96365; 97161; 99285; 99222; 99232; 99239; A9270-GY; C9113; J0131; J0696; J1650; J1815; J1836; J2920; J2930; J3370; J3490; J7030; J7040; J7050; J7620

== ENCOUNTER 2023-10-15 21:25 | Inpatient (IN) | payer MEDICARE, BC ==
[2023-10-15] MEDS: Albuterol 0.083% 2.5 MG/3 ML Neb Soln NEB PRN (22:47)
[2023-10-15] MEDS: Levofloxacin 250 MG Tab PO ONE (22:48)
[2023-10-15] MEDS: methylPREDNISolone Sodium Succinate 125 MG/2 ML SDV IVPUSH ONE (22:48)
[2023-10-15] MEDS: Sodium Chloride 0.9% 10 ML Syringe FLUSH PRN (22:48)
[2023-10-15] MEDS: Vancomycin 2 GM in Sodium Chloride 0.9% 500 ML IV ONE (22:48)
[2023-10-15] MEDS ORDERED: Vancomycin 1 GM SDV IV SCH (23:00)
[2023-10-15] MEDS: Sodium Chloride 0.9% 1,000 ML IV SCH (23:06)
[2023-10-15] MEDS ORDERED: Polyethylene Glycol 3350 Powder 17 GM Packet PO PRN (23:46)
[2023-10-15] MEDS ORDERED: Methocarbamol 500 MG Tab PO PRN (23:46)
[2023-10-15] MEDS: Acetaminophen 500 MG Tab PO ONE (23:53)
[2023-10-15 23:55] LABS: A/G RATIO 1.1 (1.2-2.2); ALANINE AMINOTRANSFERASE,ALT 27 U/L (12-78); ALBUMIN 3.7 g/dL (3.4-5.0); ALKALINE PHOSPHATASE 51 U/L (46-116); ASPARTATE AMNIOTRANSFERASE,AST 15 U/L (15-37); BILIRUBIN TOTAL 0.5 mg/dL (0.2-1.0); BLOOD UREA NITROGEN,BUN 25 mg/dL (7-18); CALCIUM 8.9 mg/dL (8.5-10.1); CARBON DIOXIDE,CO2 21 mmol/L (21-32); CHLORIDE,CL 100 mmol/L (100-108); CREATININE 1.2 mg/dL (0.8-1.3); EST CRCL DRUG DOSING (CG) 52.43 mL/min; ESTIMATED GFR 65 mL/min (>60); GLUCOSE RANDOM 252 mg/dL (74-106); MAGNESIUM 1.8 mg/dL (1.8-2.4); POTASSIUM,K 4.4 mmol/L (3.6-5.2); PROTEIN TOTAL,TP 7.1 g/dL (6.4-8.2); SODIUM,NA 135 mmol/L (140-148)
[2023-10-15 23:56] LABS: ANION GAP 18.4 mmol/L (5.0-14.0)
[2023-10-16] MEDS: Sodium Chloride 0.9% 10 ML Syringe FLUSH PRN (00:01)
[2023-10-16] MEDS: Sodium Chloride 0.9% 80 ML IV SCH (00:01)
[2023-10-16] MEDS: Iopamidol 612 MG/ML 100 ML Bottle IV PRN (00:01)
[2023-10-16 00:09] LABS: BASOPHILS PERCENT AUTO 0.3 % (0.1-1.3); EOSINOPHILS ABSOLUTE AUTO 0.03 K/uL (0.00-0.40); EOSINOPHILS PERCENT AUTO 0.4 % (0.0-5.4); HEMATOCRIT 38.8 % (38.4-49.7); HEMOGLOBIN 13.6 g/dL (12.9-16.9); IMMATURE GRAN PERCENT AUTO 0.3 % (0.0-0.7); LYMPHOCYTES ABSOLUTE AUTO 0.69 K/uL (0.8-3.3); LYMPHOCYTES PERCENT AUTO 9.4 % (11.4-47.7); MEAN CORPUSCULAR HEMOGLOBIN 28.8 pg (31.6-35.5); MEAN CORPUSCULAR HGB CONC 35.1 g/dL (31.6-35.5); MONOCYTES ABSOLUTE AUTO 0.75 K/uL (0.20-0.90); MONOCYTES PERCENT AUTO 10.2 % (3.3-12.6); NEUTROPHILS ABSOLUTE AUTO 5.86 K/uL (1.0-7.6); NEUTROPHILS PERCENT AUTO 79.4 % (40.0-78.1); PLATELET COUNT,PLT 108 K/uL (130-375); RED BLOOD CELL COUNT 4.73 M/uL (4.14-5.76); WHITE BLOOD CELL COUNT,WBC 7.4 K/uL (3.2-11.0)
[2023-10-16 00:15] LABS: BASOPHILS ABSOLUTE AUTO 0.02 K/uL (0.00-0.10); IMMATURE GRAN ABSOLUTE AUTO 0.02 K/uL (0.00-0.23)
[2023-10-16 00:19] LABS: APPEARANCE,URINE CLEAR (CLEAR); BILIRUBIN,URINE NEGATIVE (NEGATIVE); COLOR,URINE YELLOW (YELLOW); GLUCOSE,URINE 500 mg/dL (NEGATIVE); KETONES,URINE NEGATIVE (NEGATIVE); LEUKOCYTE ESTERASE,URINE NEGATIVE (NEGATIVE); NITRITE,URINE NEGATIVE (NEGATIVE); OCCULT BLOOD,URINE TRACE-INTACT (NEGATIVE); PROTEIN,URINE TRACE mg/dL (NEGATIVE); UROBILINOGEN,URINE 0.2 EU/dL (0.2-1.0)
[2023-10-16] MEDS ORDERED: Bisacodyl 5 MG Tab PO PRN (00:20)
[2023-10-16] MEDS ORDERED: Naloxone 0.4 MG/ML SDV IVPUSH PRN (00:20)
[2023-10-16] MEDS ORDERED: oxyCODONE 5 MG Tab PO PRN (00:20)
[2023-10-16] MEDS ORDERED: Ondansetron 4 MG Tab.DIS PO PRN (00:20)
[2023-10-16] MEDS ORDERED: Docusate Sodium 100 MG Cap PO PRN (00:20)
[2023-10-16] MEDS ORDERED: Morphine 2 MG/ML SYRINGE IVPUSH PRN (00:20)
[2023-10-16 00:28] LABS: AMORPHOUS SEDIMENT,URINE NOT SEEN; BACTERIA,URINE FEW; EPITHELIAL CELLS,URINE RARE; MUCUS,URINE NOT SEEN; RBC,URINE 0-5 (0-5); WBC,URINE 0-5 (0-5)
[2023-10-16] MEDS: Levofloxacin/Dextrose 5%-Water 750 MG in Premix Bag 1 BAG IV SCH (00:29)
[2023-10-16] MEDS: cefTRIAXone 2 GM in Sodium Chloride 0.9% 50 ML IV SCH ×2 (00:30→09:37)
[2023-10-16] MEDS: Enoxaparin 40 MG/0.4 ML Syringe SUBCUT SCH (00:42)
[2023-10-16] MEDS: Sodium Chloride 0.9% 1,000 ML IV SCH ×2 (02:28→03:29)
[2023-10-16 03:45] LABS: BASOPHILS PERCENT AUTO 0.1 % (0.1-1.3); HEMOGLOBIN 12.5 g/dL (12.9-16.9); IMMATURE GRAN ABSOLUTE AUTO 0.03 K/uL (0.00-0.23); IMMATURE GRAN PERCENT AUTO 0.4 % (0.0-0.7); LYMPHOCYTES ABSOLUTE AUTO 0.53 K/uL (0.8-3.3); LYMPHOCYTES PERCENT AUTO 6.8 % (11.4-47.7); MEAN CORPUSCULAR HEMOGLOBIN 28.6 pg (31.6-35.5); MEAN CORPUSCULAR HGB CONC 34.7 g/dL (31.6-35.5); MEAN CORPUSCULAR VOLUME 82.4 fL (81.4-99.0); MONOCYTES ABSOLUTE AUTO 0.22 K/uL (0.20-0.90); MONOCYTES PERCENT AUTO 2.8 % (3.3-12.6); NEUTROPHILS ABSOLUTE AUTO 7.04 K/uL (1.0-7.6); NEUTROPHILS PERCENT AUTO 89.9 % (40.0-78.1); PLATELET COUNT,PLT 98 K/uL (130-375); RED BLOOD CELL COUNT 4.37 M/uL (4.14-5.76); WHITE BLOOD CELL COUNT,WBC 7.8 K/uL (3.2-11.0)
[2023-10-16] MEDS: methylPREDNISolone Sodium Succinate 40 MG/1 ML SDV IVPUSH SCH ×2 (03:56→09:37)
[2023-10-16 03:58] LABS: EST CRCL DRUG DOSING (CG) 62.91 mL/min; POTASSIUM,K 4.1 mmol/L (3.6-5.2)
[2023-10-16 04:04] LABS: ANION GAP 16.1 mmol/L (5.0-14.0); BASOPHILS ABSOLUTE AUTO 0.01 K/uL (0.00-0.10)
[2023-10-16] MEDS: Diclofenac Sodium 1% Gel 100 GM Tube TOP SCH (06:18)
[2023-10-16] MEDS: Albuterol/Ipratropium 3.0-0.5 MG/3 ML Neb Soln NEB SCH (07:07)
[2023-10-16] MEDS: Insulin Lispro 100 Unit/ML 3 ML KwikPen SUBCUT SCH (07:42)
[2023-10-16] MEDS: Lisinopril 2.5 MG Tab PO SCH (08:21)
[2023-10-16] MEDS: Furosemide 20 MG Tab PO SCH (08:22)
[2023-10-16] MEDS: Calcium Carbonate/Vitamin D3 1500 MG-400 Units Tab PO SCH (08:22)
[2023-10-16] MEDS ORDERED: Brimonidine 0.2% Ophth Soln 5 ML Bottle EYELF SCH (09:00)
[2023-10-16] MEDS: Brimonidine 0.2% Ophth Soln 5 ML Bottle EYELF SCH (09:36)
[2023-10-16] MEDS ORDERED: Non-Formulary Medication 1 Each INH SCH (10:45)
[2023-10-16] MEDS: Formoterol/Mometasone 200-5 MCG 8.8 GM Inhaler INH SCH (11:39)
[2023-10-16] MEDS: Acetaminophen 325 MG Tab PO PRN (16:08)
[2023-10-16] MEDS: atorvaSTATin 10 MG Tab PO SCH (20:59)
[2023-10-16] MEDS ORDERED: Enoxaparin 40 MG/0.4 ML Syringe SUBCUT SCH ×2 (21:00→22:00)
[2023-10-16] MEDS ORDERED: cefTRIAXone 2 GM in Sodium Chloride 0.9% 50 ML IV SCH (22:00)
[2023-10-17 06:00] LABS: BASOPHILS PERCENT AUTO 0.2 % (0.1-1.3); EOSINOPHILS PERCENT AUTO 0.1 % (0.0-5.4); HEMATOCRIT 37.6 % (38.4-49.7); IMMATURE GRAN ABSOLUTE AUTO 0.03 K/uL (0.00-0.23); IMMATURE GRAN PERCENT AUTO 0.4 % (0.0-0.7); LYMPHOCYTES ABSOLUTE AUTO 0.75 K/uL (0.8-3.3); LYMPHOCYTES PERCENT AUTO 8.9 % (11.4-47.7); MEAN CORPUSCULAR HEMOGLOBIN 28.4 pg (31.6-35.5); MEAN CORPUSCULAR HGB CONC 34.6 g/dL (31.6-35.5); MEAN CORPUSCULAR VOLUME 82.1 fL (81.4-99.0); MONOCYTES ABSOLUTE AUTO 0.73 K/uL (0.20-0.90); MONOCYTES PERCENT AUTO 8.7 % (3.3-12.6); NEUTROPHILS ABSOLUTE AUTO 6.88 K/uL (1.0-7.6); NEUTROPHILS PERCENT AUTO 81.7 % (40.0-78.1); PLATELET COUNT,PLT 112 K/uL (130-375); RED BLOOD CELL COUNT 4.58 M/uL (4.14-5.76); WHITE BLOOD CELL COUNT,WBC 8.4 K/uL (3.2-11.0)
[2023-10-17 06:15] LABS: ANION GAP 10.8 mmol/L (5.0-14.0); BASOPHILS ABSOLUTE AUTO 0.02 K/uL (0.00-0.10); CALCIUM 8.6 mg/dL (8.5-10.1); EOSINOPHILS ABSOLUTE AUTO 0.01 K/uL (0.00-0.40); EST CRCL DRUG DOSING (CG) 62.91 mL/min
[2023-10-17] MEDS: predniSONE 20 MG Tab PO SCH (07:43)
[2023-10-17] MEDS: cefTRIAXone 1 GM in Sodium Chloride 0.9% 50 ML IV SCH (09:57)
[2023-10-17 11:49] VITALS: PULSE 80
[2023-10-17 11:50] VITALS: BP 158/83
== END 2023-10-17 15:31 | disposition home or self-care (01) | DRG 871 ==
LOC: JP.ED 21:25 → JP.MS 23:18
PROVIDERS: ADMIT Hospitalist; ATTEND Internal Medicine
DX: A41.9 Sepsis, unspecified organism (principal); J18.9 Pneumonia, unspecified organism; J96.01 Acute respiratory failure with hypoxia; J44.0 Chronic obstructive pulmonary disease with (acute) lower respiratory infection; J44.9 Chronic obstructive pulmonary disease, unspecified; J44.1 Chronic obstructive pulmonary disease with (acute) exacerbation; D84.9 Immunodeficiency, unspecified; E87.20 Acidosis, unspecified; I25.2 Old myocardial infarction; Z68.38 Body mass index [BMI] 38.0-38.9, adult; E11.9 Type 2 diabetes mellitus without complications; Z79.51 Long term (current) use of inhaled steroids; E78.00 Pure hypercholesterolemia, unspecified; Z86.73 Personal history of transient ischemic attack (TIA), and cerebral infarction without residual deficits; H91.90 Unspecified hearing loss, unspecified ear; I51.9 Heart disease, unspecified; E66.9 Obesity, unspecified; Z79.82 Long term (current) use of aspirin; Z79.84 Long term (current) use of oral hypoglycemic drugs; Z79.52 Long term (current) use of systemic steroids; Z79.899 Other long term (current) drug therapy; Z91.013 Allergy to seafood; Z95.0 Presence of cardiac pacemaker; Z90.49 Acquired absence of other specified parts of digestive tract; Z90.89 Acquired absence of other organs; Z98.890 Other specified postprocedural states; Z96.659 Presence of unspecified artificial knee joint
CPT/HCPCS: 36415; 71046 ×2; 71260; 80053; 82150; 83605; 83735; 84145; 85025; 87040 ×2; A9270; J2919; J3370; J3490; J7030; J7040; 80048; 81001; 82947; 87804; 87804-59; 94640; 96374; 96375; 99222; 99232; 99238; 99285-25; J0696; J1650; J1815; J7050; J7512; J7620; Q9967; U0002

== ENCOUNTER 2024-05-24 21:22 | Inpatient (IN) | payer BC, MEDICARE ==
[2024-05-24 22:17] LABS: BASOPHILS ABSOLUTE AUTO 0.09 K/uL (0.00-0.10); BASOPHILS PERCENT AUTO 0.3 % (0.1-1.3); EOSINOPHILS ABSOLUTE AUTO 0.03 K/uL (0.00-0.40); EOSINOPHILS PERCENT AUTO 0.1 % (0.0-5.4); HEMATOCRIT 39.4 % (38.4-49.7); HEMOGLOBIN 13.3 g/dL (12.9-16.9); IMMATURE GRAN PERCENT AUTO 0.9 % (0.0-0.7); LYMPHOCYTES ABSOLUTE AUTO 1.35 K/uL (0.8-3.3); MEAN CORPUSCULAR HEMOGLOBIN 28.6 pg (31.6-35.5); MEAN CORPUSCULAR HGB CONC 33.8 g/dL (31.6-35.5); MEAN CORPUSCULAR VOLUME 84.7 fL (81.4-99.0); MONOCYTES ABSOLUTE AUTO 1.46 K/uL (0.20-0.90); MONOCYTES PERCENT AUTO 4.3 % (3.3-12.6); NEUTROPHILS ABSOLUTE AUTO 30.54 K/uL (1.0-7.6); NEUTROPHILS PERCENT AUTO 90.4 % (40.0-78.1); PLATELET COUNT,PLT 177 K/uL (130-375); RED BLOOD CELL COUNT 4.65 M/uL (4.14-5.76)
[2024-05-24] MEDS: Acetaminophen 500 MG Tab PO ONE (22:25)
[2024-05-24 22:26] LABS: WHITE BLOOD CELL COUNT,WBC 33.8 K/uL (3.2-11.0)
[2024-05-24] MEDS: Albuterol/Ipratropium 3.0-0.5 MG/3 ML Neb Soln NEB ONE (22:26)
[2024-05-24] MEDS: Sodium Chloride 0.9% 10 ML Syringe FLUSH PRN (22:26)
[2024-05-24] MEDS ORDERED: Azithromycin 500 MG Vial IV ONE (22:36)
[2024-05-24 22:39] LABS: A/G RATIO 0.9 (1.2-2.2); ALANINE AMINOTRANSFERASE,ALT 44 U/L (12-78); ALBUMIN 3.5 g/dL (3.4-5.0); ALKALINE PHOSPHATASE 61 U/L (46-116); ASPARTATE AMNIOTRANSFERASE,AST 21 U/L (15-37); BILIRUBIN TOTAL 0.6 mg/dL (0.2-1.0); BLOOD UREA NITROGEN,BUN 28 mg/dL (7-18); CALCIUM 9.3 mg/dL (8.5-10.1); CARBON DIOXIDE,CO2 23 mmol/L (21-32); CHLORIDE,CL 101 mmol/L (100-108); CREATININE 1.1 mg/dL (0.8-1.3); EST CRCL DRUG DOSING (CG) 57.19 mL/min; ESTIMATED GFR 73 mL/min (>60); GLUCOSE RANDOM 191 mg/dL (74-106); POTASSIUM,K 4.2 mmol/L (3.6-5.2); PROTEIN TOTAL,TP 7.3 g/dL (6.4-8.2); SODIUM,NA 137 mmol/L (140-148)
[2024-05-24 22:43] LABS: ANION GAP 17.2 mmol/L (5.0-14.0)
[2024-05-24] MEDS: Sodium Chloride 0.9% 1,000 ML IV SCH (22:57)
[2024-05-24] MEDS: cefTRIAXone 2 GM in Sodium Chloride 0.9% 50 ML IV ONE (22:58)
[2024-05-25] MEDS: methylPREDNISolone Sodium Succinate 125 MG/2 ML SDV IVPUSH ONE (00:04)
[2024-05-25] MEDS: Azithromycin 500 MG in Sodium Chloride 0.9% 250 ML IV ONE (00:08)
[2024-05-25] MEDS ORDERED: Acetaminophen 325 MG Tab PO PRN (00:24)
[2024-05-25] MEDS ORDERED: Albuterol 0.083% 2.5 MG/3 ML Neb Soln NEB PRN (00:24)
[2024-05-25] MEDS ORDERED: Melatonin 3 MG Tab PO PRN (00:24)
[2024-05-25] MEDS ORDERED: Non-Formulary Medication 1 Each (Brimonidine [Alphagan P 0.1% Ophth Soln] 10 ML Bottle) EYELF SCH (00:24)
[2024-05-25] MEDS ORDERED: Polyethylene Glycol 3350 Powder 17 GM Packet PO PRN (00:24)
[2024-05-25] MEDS ORDERED: Ondansetron 4 MG Tab.DIS PO PRN (00:24)
[2024-05-25] MEDS ORDERED: Codeine/guaiFENesin 10-100 MG/5 ML Syrup 5 ML Cup PO PRN (00:24)
[2024-05-25] MEDS ORDERED: Ondansetron 4 MG/2 ML SDV IV PRN (00:24)
[2024-05-25] MEDS ORDERED: Sennosides/Docusate Sodium 50-8.6 MG Tab PO PRN (00:24)
[2024-05-25] MEDS: Lisinopril 2.5 MG Tab PO SCH (01:10)
[2024-05-25] MEDS: Brimonidine 0.2% Ophth Soln 5 ML Bottle EYELF SCH (01:10)
[2024-05-25] MEDS: Enoxaparin 40 MG/0.4 ML Syringe SUBCUT SCH (01:11)
[2024-05-25] MEDS: atorvaSTATin 10 MG Tab PO SCH (01:11)
[2024-05-25] MEDS: metFORMIN 500 MG Tab PO SCH (01:11)
[2024-05-25 05:56] LABS: HEMATOCRIT 37.5 % (38.4-49.7); HEMOGLOBIN 12.3 g/dL (12.9-16.9); MEAN CORPUSCULAR HEMOGLOBIN 28.1 pg (31.6-35.5); MEAN CORPUSCULAR HGB CONC 32.8 g/dL (31.6-35.5); MEAN CORPUSCULAR VOLUME 85.6 fL (81.4-99.0); RED BLOOD CELL COUNT 4.38 M/uL (4.14-5.76); WHITE BLOOD CELL COUNT,WBC 26.5 K/uL (3.2-11.0)
[2024-05-25 06:24] LABS: ANION GAP 10.5 mmol/L (5.0-14.0); CALCIUM 8.9 mg/dL (8.5-10.1); EST CRCL DRUG DOSING (CG) 62.91 mL/min; POTASSIUM,K 4.2 mmol/L (3.6-5.2)
[2024-05-25] MEDS: Albuterol/Ipratropium 3.0-0.5 MG/3 ML Neb Soln NEB SCH (07:03)
[2024-05-25] MEDS: Lactobacillus Rhamnosus GG (Probiotic) Cap PO SCH (08:38)
[2024-05-25] MEDS: Loratadine 10 MG Tab PO SCH (08:38)
[2024-05-25] MEDS: Aspirin 81 MG Tab.EC PO SCH (08:39)
[2024-05-25] MEDS ORDERED: VANCOmycin 1 GM SDV IV SCH (10:00)
[2024-05-25] MEDS: Sodium Chloride 0.9% 10 ML Syringe FLUSH PRN (10:39)
[2024-05-25] MEDS: Iopamidol 755 Mg/ML 100 ML Bottle IV SCH (10:39)
[2024-05-25] MEDS: Sodium Chloride 0.9% 100 ML IV ONE (10:39)
[2024-05-25] MEDS: VANCOmycin 2 GM in Sodium Chloride 0.9% 500 ML IV ONE (10:56)
[2024-05-25] MEDS: Ampicillin/Sulbactam Na 1.5 GM in Sodium Chloride 0.9% 50 ML IV SCH (13:31)
[2024-05-25] MEDS: Methocarbamol 500 MG Tab PO PRN (17:17)
[2024-05-25] MEDS ORDERED: cefTRIAXone 1 GM in Sodium Chloride 0.9% 50 ML IV SCH (21:00)
[2024-05-25] MEDS: Brimonidine 0.2% Ophth Soln 5 ML Bottle EYEBOTH SCH (21:08)
[2024-05-25] MEDS: VANCOmycin 1.5 GM in Sodium Chloride 0.9% 250 ML IV SCH (22:55)
[2024-05-26 05:39] LABS: HEMATOCRIT 35.9 % (38.4-49.7); HEMOGLOBIN 11.8 g/dL (12.9-16.9); MEAN CORPUSCULAR HEMOGLOBIN 28.5 pg (31.6-35.5); MEAN CORPUSCULAR HGB CONC 32.9 g/dL (31.6-35.5); MEAN CORPUSCULAR VOLUME 86.7 fL (81.4-99.0); RED BLOOD CELL COUNT 4.14 M/uL (4.14-5.76); WHITE BLOOD CELL COUNT,WBC 14.5 K/uL (3.2-11.0)
[2024-05-26 05:59] LABS: ANION GAP 10.6 mmol/L (5.0-14.0); CALCIUM 9.1 mg/dL (8.5-10.1); CREATININE 0.9 mg/dL (0.8-1.3); EST CRCL DRUG DOSING (CG) 69.9 mL/min; MAGNESIUM 1.7 mg/dL (1.8-2.4); POTASSIUM,K 3.9 mmol/L (3.6-5.2); VANCOMYCIN RANDOM 15.9 ug/mL (0.0-50.0)
[2024-05-26] MEDS: Magnesium Sulf/Wat 2 GM/50 mL 2 GM in Premix Bag 1 BAG IV SCH (10:55)
[2024-05-26] MEDS ORDERED: VANCOmycin 1.5 GM in Sodium Chloride 0.9% 250 ML IV SCH (11:00)
[2024-05-27 06:00] LABS: HEMATOCRIT 37.8 % (38.4-49.7); HEMOGLOBIN 12.4 g/dL (12.9-16.9); MEAN CORPUSCULAR HEMOGLOBIN 28.4 pg (31.6-35.5); MEAN CORPUSCULAR HGB CONC 32.8 g/dL (31.6-35.5); MEAN CORPUSCULAR VOLUME 86.7 fL (81.4-99.0); RED BLOOD CELL COUNT 4.36 M/uL (4.14-5.76); WHITE BLOOD CELL COUNT,WBC 8.4 K/uL (3.2-11.0)
[2024-05-27 14:43] VITALS: BP 132/77; PULSE 80
== END 2024-05-27 15:48 | disposition home or self-care (01) | DRG 720 ==
LOC: JP.ED 21:22 → JP.MS 23:36
PROVIDERS: ADMIT Registered Nurse; ATTEND Hospitalist
DX: A41.9 Sepsis, unspecified organism (principal); J96.01 Acute respiratory failure with hypoxia; J69.0 Pneumonitis due to inhalation of food and vomit; J18.9 Pneumonia, unspecified organism; D84.9 Immunodeficiency, unspecified; I44.2 Atrioventricular block, complete; J44.1 Chronic obstructive pulmonary disease with (acute) exacerbation; J44.0 Chronic obstructive pulmonary disease with (acute) lower respiratory infection; H91.90 Unspecified hearing loss, unspecified ear; H54.7 Unspecified visual loss; E78.00 Pure hypercholesterolemia, unspecified; E11.9 Type 2 diabetes mellitus without complications; Z96.659 Presence of unspecified artificial knee joint; Z79.82 Long term (current) use of aspirin; Z79.84 Long term (current) use of oral hypoglycemic drugs; Z79.899 Other long term (current) drug therapy; Z79.51 Long term (current) use of inhaled steroids; Z95.0 Presence of cardiac pacemaker; Z86.73 Personal history of transient ischemic attack (TIA), and cerebral infarction without residual deficits; Z90.89 Acquired absence of other organs; Z90.49 Acquired absence of other specified parts of digestive tract; Z98.890 Other specified postprocedural states; Z87.891 Personal history of nicotine dependence
CPT/HCPCS: 36415; 71046; 71046-26; 71275; 71275-26; 80048; 80053; 80202; 83605; 83735; 85025; 85027; 87040; 87070; 87205; 87428-QW; 94640; 96365; 99222; 99232; 99238; 99285; 99285-25; A9270-GY; J0295; J0456; J0696; J1650; J2919; J3371; J3475; J7030; J7050; Q9967

== ENCOUNTER 2024-07-26 01:04 | Inpatient (IN) | payer MEDICARE, BC ==
[2024-07-26] MEDS: Sodium Chloride 0.9% 1,000 ML IV SCH ×3 (01:55→05:34)
[2024-07-26 02:01] LABS: BASOPHILS ABSOLUTE AUTO 0.04 K/uL (0.00-0.10); BASOPHILS PERCENT AUTO 0.2 % (0.1-1.3); EOSINOPHILS ABSOLUTE AUTO 0.05 K/uL (0.00-0.40); EOSINOPHILS PERCENT AUTO 0.3 % (0.0-5.4); HEMATOCRIT 41.8 % (38.4-49.7); HEMOGLOBIN 13.7 g/dL (12.9-16.9); IMMATURE GRAN ABSOLUTE AUTO 0.07 K/uL (0.00-0.23); IMMATURE GRAN PERCENT AUTO 0.4 % (0.0-0.7); LYMPHOCYTES ABSOLUTE AUTO 0.98 K/uL (0.8-3.3); LYMPHOCYTES PERCENT AUTO 5.4 % (11.4-47.7); MEAN CORPUSCULAR HEMOGLOBIN 28.5 pg (31.6-35.5); MEAN CORPUSCULAR HGB CONC 32.8 g/dL (31.6-35.5); MEAN CORPUSCULAR VOLUME 86.9 fL (81.4-99.0); MONOCYTES ABSOLUTE AUTO 0.71 K/uL (0.20-0.90); MONOCYTES PERCENT AUTO 3.9 % (3.3-12.6); NEUTROPHILS PERCENT AUTO 89.8 % (40.0-78.1); PLATELET COUNT,PLT 159 K/uL (130-375); RED BLOOD CELL COUNT 4.81 M/uL (4.14-5.76); WHITE BLOOD CELL COUNT,WBC 18.2 K/uL (3.2-11.0)
[2024-07-26] MEDS: cefTRIAXone 1 GM in Sodium Chloride 0.9% 50 ML IV SCH (02:15)
[2024-07-26] MEDS: Acetaminophen 500 MG Tab PO ONE (02:15)
[2024-07-26] MEDS: Albuterol/Ipratropium 3.0-0.5 MG/3 ML Neb Soln NEB ONE (02:16)
[2024-07-26 02:18] LABS: A/G RATIO 1.1 (1.2-2.2); ALANINE AMINOTRANSFERASE,ALT 33 U/L (12-78); ALBUMIN 3.7 g/dL (3.4-5.0); ALKALINE PHOSPHATASE 70 U/L (46-116); ASPARTATE AMNIOTRANSFERASE,AST 22 U/L (15-37); BILIRUBIN TOTAL 0.6 mg/dL (0.2-1.0); BLOOD UREA NITROGEN,BUN 31 mg/dL (7-18); C-REACTIVE PROTEIN 3.56 mg/dL (<0.50); CALCIUM 9.3 mg/dL (8.5-10.1); CARBON DIOXIDE,CO2 25 mmol/L (21-32); CHLORIDE,CL 102 mmol/L (100-108); CREATININE 1.1 mg/dL (0.8-1.3); EST CRCL DRUG DOSING (CG) 56.39 mL/min; ESTIMATED GFR 72 mL/min (>60); GLUCOSE RANDOM 191 mg/dL (74-106); POTASSIUM,K 4.2 mmol/L (3.6-5.2); PROTEIN TOTAL,TP 7.2 g/dL (6.4-8.2); SODIUM,NA 138 mmol/L (140-148)
[2024-07-26 02:19] LABS: ANION GAP 15.2 mmol/L (5.0-14.0)
[2024-07-26 02:23] LABS: LACTIC ACID 2.3 mmol/L (0.4-2.0)
[2024-07-26] MEDS: Azithromycin 500 MG in Sodium Chloride 0.9% 250 ML IV SCH (02:50)
[2024-07-26] MEDS ORDERED: Sodium Chloride 0.9% 10 ML Syringe FLUSH PRN (05:13)
[2024-07-26] MEDS ORDERED: Albuterol 0.083% 2.5 MG/3 ML Neb Soln NEB PRN (05:13)
[2024-07-26] MEDS ORDERED: Ondansetron 4 MG/2 ML SDV IV PRN (05:13)
[2024-07-26] MEDS ORDERED: Acetaminophen 325 MG Tab PO PRN (05:13)
[2024-07-26] MEDS ORDERED: Furosemide 20 MG Tab PO PRN (05:13)
[2024-07-26] MEDS ORDERED: Ondansetron 4 MG Tab.DIS PO PRN (05:13)
[2024-07-26] MEDS ORDERED: Sennosides/Docusate Sodium 50-8.6 MG Tab PO PRN (05:13)
[2024-07-26] MEDS ORDERED: Magnesium Hydroxide 400 MG/5 ML Susp 30 ML Cup PO PRN (05:13)
[2024-07-26] MEDS: Enoxaparin 40 MG/0.4 ML Syringe SUBCUT SCH (05:54)
[2024-07-26] MEDS: Albuterol/Ipratropium 3.0-0.5 MG/3 ML Neb Soln NEB SCH (06:54)
[2024-07-26 08:03] LABS: BASOPHILS ABSOLUTE AUTO 0.05 K/uL (0.00-0.10); BASOPHILS PERCENT AUTO 0.3 % (0.1-1.3); EOSINOPHILS ABSOLUTE AUTO 0.05 K/uL (0.00-0.40); EOSINOPHILS PERCENT AUTO 0.3 % (0.0-5.4); HEMATOCRIT 37.6 % (38.4-49.7); HEMOGLOBIN 12.3 g/dL (12.9-16.9); IMMATURE GRAN PERCENT AUTO 0.5 % (0.0-0.7); LYMPHOCYTES ABSOLUTE AUTO 1.18 K/uL (0.8-3.3); LYMPHOCYTES PERCENT AUTO 6.2 % (11.4-47.7); MEAN CORPUSCULAR HEMOGLOBIN 28.7 pg (31.6-35.5); MEAN CORPUSCULAR HGB CONC 32.7 g/dL (31.6-35.5); MEAN CORPUSCULAR VOLUME 87.6 fL (81.4-99.0); MONOCYTES ABSOLUTE AUTO 0.81 K/uL (0.20-0.90); MONOCYTES PERCENT AUTO 4.2 % (3.3-12.6); NEUTROPHILS ABSOLUTE AUTO 16.87 K/uL (1.0-7.6); NEUTROPHILS PERCENT AUTO 88.5 % (40.0-78.1); PLATELET COUNT,PLT 142 K/uL (130-375); RED BLOOD CELL COUNT 4.29 M/uL (4.14-5.76); WHITE BLOOD CELL COUNT,WBC 19.1 K/uL (3.2-11.0)
[2024-07-26 08:26] LABS: LACTIC ACID 2.1 mmol/L (0.4-2.0)
[2024-07-26] MEDS: predniSONE 20 MG Tab PO SCH (08:36)
[2024-07-26] MEDS: Pantoprazole 40 MG Tab.CR PO SCH (08:36)
[2024-07-26] MEDS: Calcium Carbonate/Vitamin D3 1500 MG-400 Units Tab PO SCH (08:36)
[2024-07-26] MEDS: Brimonidine 0.2% Ophth Soln 5 ML Bottle EYEBOTH SCH (08:36)
[2024-07-26] MEDS: metFORMIN 500 MG Tab PO SCH (08:36)
[2024-07-26] MEDS: Aspirin 81 MG Tab.EC PO SCH (08:36)
[2024-07-26] MEDS: Loratadine 10 MG Tab PO SCH (08:36)
[2024-07-26] MEDS: Lisinopril 2.5 MG Tab PO SCH (08:37)
[2024-07-26] MEDS: Insulin Lispro 100 Unit/ML 3 ML KwikPen SUBCUT SCH (11:48)
[2024-07-26] MEDS: cefTRIAXone 2 GM in Sodium Chloride 0.9% 50 ML IV SCH (13:11)
[2024-07-26] MEDS: atorvaSTATin 10 MG Tab PO SCH (21:57)
[2024-07-27] MEDS ORDERED: cefTRIAXone 1 GM in Sodium Chloride 0.9% 50 ML IV SCH (02:00)
[2024-07-27] MEDS ORDERED: Azithromycin 500 MG in Sodium Chloride 0.9% 250 ML IV SCH (03:00)
[2024-07-27 06:20] LABS: HEMATOCRIT 38.6 % (38.4-49.7); HEMOGLOBIN 12.9 g/dL (12.9-16.9); MEAN CORPUSCULAR HEMOGLOBIN 28.9 pg (31.6-35.5); MEAN CORPUSCULAR HGB CONC 33.4 g/dL (31.6-35.5); MEAN CORPUSCULAR VOLUME 86.5 fL (81.4-99.0); RED BLOOD CELL COUNT 4.46 M/uL (4.14-5.76); WHITE BLOOD CELL COUNT,WBC 13.7 K/uL (3.2-11.0)
[2024-07-27 06:38] LABS: ANION GAP 8.7 mmol/L (5.0-14.0); C-REACTIVE PROTEIN 13.19 mg/dL (<0.50); CALCIUM 9.9 mg/dL (8.5-10.1); CREATININE 0.8 mg/dL (0.8-1.3); EST CRCL DRUG DOSING (CG) 77.53 mL/min; POTASSIUM,K 3.9 mmol/L (3.6-5.2)
[2024-07-27] MEDS: Azithromycin 250 MG Tab PO SCH (08:31)
[2024-07-27] MEDS: Cefdinir 300 MG Cap PO SCH (12:00)
[2024-07-27 13:11] VITALS: BP 144/63; PULSE 78
== END 2024-07-27 15:15 | disposition home or self-care (01) | DRG 871 ==
LOC: JP.ED 01:04 → JP.2SS 04:39
PROVIDERS: ADMIT Nurse Practitioner; ATTEND Internal Medicine
DX: A41.9 Sepsis, unspecified organism (principal); J18.9 Pneumonia, unspecified organism; J96.01 Acute respiratory failure with hypoxia; D84.9 Immunodeficiency, unspecified; J44.0 Chronic obstructive pulmonary disease with (acute) lower respiratory infection; J44.9 Chronic obstructive pulmonary disease, unspecified; H91.90 Unspecified hearing loss, unspecified ear; H54.7 Unspecified visual loss; E11.9 Type 2 diabetes mellitus without complications; R65.20 Severe sepsis without septic shock; Z91.048 Other nonmedicinal substance allergy status; I10 Essential (primary) hypertension; Z96.659 Presence of unspecified artificial knee joint; E78.00 Pure hypercholesterolemia, unspecified; Z88.5 Allergy status to narcotic agent; Z79.82 Long term (current) use of aspirin; Z79.899 Other long term (current) drug therapy; Z91.013 Allergy to seafood; Z79.84 Long term (current) use of oral hypoglycemic drugs; Z79.51 Long term (current) use of inhaled steroids; Z79.2 Long term (current) use of antibiotics; Z95.0 Presence of cardiac pacemaker; Z87.19 Personal history of other diseases of the digestive system; Z86.73 Personal history of transient ischemic attack (TIA), and cerebral infarction without residual deficits; Z86.16 Personal history of COVID-19; Z90.89 Acquired absence of other organs; Z98.890 Other specified postprocedural states; Z90.49 Acquired absence of other specified parts of digestive tract; Z85.820 Personal history of malignant melanoma of skin
CPT/HCPCS: 36415; 71045 ×2; 80053; 83605; 85025; 86140; 87040 ×2; 94640; 96361; 96365; 96367; 99285; A9270 ×2; J0456; J0696; J7030 ×2; J7050; 80048; 82947; 85027; 94667; 99222; 99238; J1650; J1815; J7512

== ENCOUNTER 2024-08-12 22:13 | Inpatient (IN) | payer MEDICARE, BC ==
[2024-08-12 23:00] LABS: BASOPHILS ABSOLUTE AUTO 0.06 K/uL (0.00-0.10); BASOPHILS PERCENT AUTO 0.3 % (0.1-1.3); EOSINOPHILS ABSOLUTE AUTO 0.02 K/uL (0.00-0.40); EOSINOPHILS PERCENT AUTO 0.1 % (0.0-5.4); HEMATOCRIT 39.5 % (38.4-49.7); HEMOGLOBIN 13.2 g/dL (12.9-16.9); IMMATURE GRAN ABSOLUTE AUTO 0.13 K/uL (0.00-0.23); IMMATURE GRAN PERCENT AUTO 0.6 % (0.0-0.7); LYMPHOCYTES ABSOLUTE AUTO 1.18 K/uL (0.8-3.3); LYMPHOCYTES PERCENT AUTO 5.2 % (11.4-47.7); MEAN CORPUSCULAR HEMOGLOBIN 28.9 pg (31.6-35.5); MEAN CORPUSCULAR HGB CONC 33.4 g/dL (31.6-35.5); MEAN CORPUSCULAR VOLUME 86.4 fL (81.4-99.0); MONOCYTES ABSOLUTE AUTO 1.26 K/uL (0.20-0.90); MONOCYTES PERCENT AUTO 5.6 % (3.3-12.6); NEUTROPHILS PERCENT AUTO 88.2 % (40.0-78.1); PLATELET COUNT,PLT 130 K/uL (130-375); RED BLOOD CELL COUNT 4.57 M/uL (4.14-5.76); WHITE BLOOD CELL COUNT,WBC 22.7 K/uL (3.2-11.0)
[2024-08-12 23:21] LABS: ALANINE AMINOTRANSFERASE,ALT 29 U/L (12-78); ALBUMIN 3.5 g/dL (3.4-5.0); ALKALINE PHOSPHATASE 62 U/L (46-116); ANION GAP 12.7 mmol/L (5.0-14.0); ASPARTATE AMNIOTRANSFERASE,AST 17 U/L (15-37); BILIRUBIN TOTAL 0.7 mg/dL (0.2-1.0); BLOOD UREA NITROGEN,BUN 36 mg/dL (7-18); C-REACTIVE PROTEIN 5.18 mg/dL (<0.50); CALCIUM 9.4 mg/dL (8.5-10.1); CARBON DIOXIDE,CO2 28 mmol/L (21-32); CHLORIDE,CL 100 mmol/L (100-108); CREATININE 1.5 mg/dL (0.8-1.3); EST CRCL DRUG DOSING (CG) 39.69 mL/min; ESTIMATED GFR 50 mL/min (>60); GLUCOSE RANDOM 268 mg/dL (74-106); POTASSIUM,K 4.7 mmol/L (3.6-5.2); PROTEIN TOTAL,TP 6.9 g/dL (6.4-8.2); SODIUM,NA 136 mmol/L (140-148)
[2024-08-12] MEDS: Sodium Chloride 0.9% 1,000 ML IV SCH (23:23)
[2024-08-12] MEDS: cefTRIAXone 1 GM in Sodium Chloride 0.9% 50 ML IV SCH (23:24)
[2024-08-13] MEDS: Azithromycin 500 MG in Sodium Chloride 0.9% 250 ML IV SCH (00:04)
[2024-08-13] MEDS ORDERED: Melatonin 3 MG Tab PO PRN (02:04)
[2024-08-13] MEDS ORDERED: Ondansetron 4 MG/2 ML SDV IV PRN (02:04)
[2024-08-13] MEDS ORDERED: Benzonatate 100 MG Cap PO PRN (02:04)
[2024-08-13] MEDS ORDERED: Albuterol 0.083% 2.5 MG/3 ML Neb Soln NEB PRN (02:04)
[2024-08-13] MEDS ORDERED: Ondansetron 4 MG Tab.DIS PO PRN (02:04)
[2024-08-13] MEDS: Enoxaparin 40 MG/0.4 ML Syringe SUBCUT SCH ×2 (02:29→20:15)
[2024-08-13] MEDS: Sodium Chloride 0.9% 1,000 ML IV SCH (02:29)
[2024-08-13] MEDS: Ampicillin/Sulbactam Na 1.5 GM in Sodium Chloride 0.9% 50 ML IV SCH (03:03)
[2024-08-13] MEDS: Ampicillin/Sulbactam Na 3 GM in Sodium Chloride 0.9% 100 ML IV SCH (03:10)
[2024-08-13] MEDS: Sodium Chloride 0.9% 100 ML ONE (03:11)
[2024-08-13] MEDS: Acetaminophen 325 MG Tab PO PRN (05:38)
[2024-08-13] MEDS: Codeine/guaiFENesin 10-100 MG/5 ML Syrup 5 ML Cup PO PRN (05:39)
[2024-08-13 05:50] LABS: HEMATOCRIT 37.1 % (38.4-49.7); HEMOGLOBIN 12.2 g/dL (12.9-16.9); MEAN CORPUSCULAR HEMOGLOBIN 28.6 pg (31.6-35.5); MEAN CORPUSCULAR HGB CONC 32.9 g/dL (31.6-35.5); MEAN CORPUSCULAR VOLUME 87.1 fL (81.4-99.0); RED BLOOD CELL COUNT 4.26 M/uL (4.14-5.76); WHITE BLOOD CELL COUNT,WBC 20.2 K/uL (3.2-11.0)
[2024-08-13 06:07] LABS: ANION GAP 6.3 mmol/L (5.0-14.0); CALCIUM 8.8 mg/dL (8.5-10.1); EST CRCL DRUG DOSING (CG) 62.03 mL/min; POTASSIUM,K 4.5 mmol/L (3.6-5.2)
[2024-08-13] MEDS: Albuterol/Ipratropium 3.0-0.5 MG/3 ML Neb Soln NEB SCH (07:25)
[2024-08-13] MEDS: Pantoprazole 40 MG Tab.CR PO SCH ×2 (08:24→20:15)
[2024-08-13] MEDS: Lactobacillus Rhamnosus GG (Probiotic) Cap PO SCH (08:24)
[2024-08-14 05:43] LABS: HEMATOCRIT 37.7 % (38.4-49.7); HEMOGLOBIN 12.5 g/dL (12.9-16.9); MEAN CORPUSCULAR HGB CONC 33.2 g/dL (31.6-35.5); MEAN CORPUSCULAR VOLUME 87.5 fL (81.4-99.0); RED BLOOD CELL COUNT 4.31 M/uL (4.14-5.76); WHITE BLOOD CELL COUNT,WBC 11.3 K/uL (3.2-11.0)
[2024-08-14 05:59] LABS: CALCIUM 9.3 mg/dL (8.5-10.1); CREATININE 0.9 mg/dL (0.8-1.3); EST CRCL DRUG DOSING (CG) 68.92 mL/min; MAGNESIUM 1.7 mg/dL (1.8-2.4); POTASSIUM,K 4.1 mmol/L (3.6-5.2)
[2024-08-14 06:10] LABS: ANION GAP 13.1 mmol/L (5.0-14.0)
[2024-08-14] MEDS: Magnesium Oxide 400 MG Tab PO SCH (08:31)
[2024-08-15 10:37] VITALS: BP 117/70
[2024-08-15 10:56] VITALS: PULSE 78
== END 2024-08-15 15:25 | disposition home or self-care (01) | DRG 177 ==
LOC: JP.ED 22:13 → JP.MS 08-13 01:09
PROVIDERS: ADMIT Registered Nurse; ATTEND Hospitalist
DX: J69.0 Pneumonitis due to inhalation of food and vomit (principal); J96.01 Acute respiratory failure with hypoxia; Z88.8 Allergy status to other drugs, medicaments and biological substances; N17.9 Acute kidney failure, unspecified; H91.90 Unspecified hearing loss, unspecified ear; H54.7 Unspecified visual loss; Z96.659 Presence of unspecified artificial knee joint; I10 Essential (primary) hypertension; E78.5 Hyperlipidemia, unspecified; E11.9 Type 2 diabetes mellitus without complications; J44.9 Chronic obstructive pulmonary disease, unspecified; M19.90 Unspecified osteoarthritis, unspecified site; Z86.73 Personal history of transient ischemic attack (TIA), and cerebral infarction without residual deficits; Z95.0 Presence of cardiac pacemaker; Z85.820 Personal history of malignant melanoma of skin; Z86.16 Personal history of COVID-19; Z87.01 Personal history of pneumonia (recurrent); Z90.89 Acquired absence of other organs; Z90.49 Acquired absence of other specified parts of digestive tract; Z98.890 Other specified postprocedural states; Z91.013 Allergy to seafood; Z88.5 Allergy status to narcotic agent; Z79.82 Long term (current) use of aspirin; Z79.899 Other long term (current) drug therapy; Z79.84 Long term (current) use of oral hypoglycemic drugs; Z79.52 Long term (current) use of systemic steroids
CPT/HCPCS: 36415; 71046 ×2; 80053; 83605; 85025; 86140; 87040 ×2; 96361; 96365; 96367; 99284; 99285; J0456; J0696; J7030 ×2; J7050; 80048; 83735; 85027; 87070; 87205; 92610-GN; 94640; 97161-GP; 99222; 99232; 99238; A9270-GY; J0295; J1650